=== PATIENT | male | born 1945 | race Caucasian/White ===

== ENCOUNTER 2021-01-26 14:31 | Emergency (ER) | payer OTHER, SELFPAY ==
[2021-01-26] VITALS (29 sets, daily range): BP systolic 89–164; BP diastolic 45–110; PULSE 71–100; RESP 15–31; TEMP 36.2–36.6; O2SAT 89–100
--- NOTE | ~2021-01-26 | XR_ITS ---
EXAMINATION: XR chest 1V portable DATE: 01/26/2021 15:33 INDICATION: Shortness of breath and left upper chest pain TECHNIQUE: frontal view of the chest was obtained. COMPARISON: Chest radiograph dated 12/17/2005 FINDINGS: Mild linear discoid atelectasis in the left lower lung zone. No other airspace opacities, pulmonary e tanvi, pleural effusion or pneumothorax. The cardiomediastinal silhouette is normal. Mild thoracic lev ocurvature. IMPRESSION: 1. Mild linear discoid atelectasis in the left lower lung zone. No acute cardiopulmonary disease Reviewed, dictated and finalized at location A. IMPRESSION: 1. Mild linear discoid atelectasis in the left lower lung zone. No acute cardio pulmonary disease
--- NOTE | 2021-01-26 15:03 | ECG_ITS ---
Measurements Intervals [place] Rate: 91 P: 84 MD: 177 QRS: 64 QRSD: 100 T: 71 QT: 348 QTc: 429 Interpretive Statements SINUS RHYTHM FREQUENT ATRIAL AND VENTRICULAR PREMATURE COMPLEXES DELAYED PRECORDIAL R/S TRANSITION INFERIOR INFARCT, AGE INDETERMINATE BORDERLINE ST-T WAVE ABNORMALITY- LAT/HIGH LAT LEADS BASELINE ARTIFACT- I, II, III, AVR, AVL, AVF, V2 ABNORMAL ECG Electronically Signed On 01-26-2021 15:27:37 CDT by Jules Callejas D.O.
[2021-01-26] MEDS: ONDANSETRON INJ 4 MG/2 ML VIAL IV PUSH (15:18)
[2021-01-26] MEDS: MORPHINE SULFATE (*CRX) 2 MG/ML INJ IV PUSH (15:18)
[2021-01-26 15:30] LABS: Basophils Absolute Auto 0.06 K/mm3 (0.00-0.10); Basophils Percent Auto 0.9 % (0.0-1.0); Eosinophils Absolute Auto 0.12 K/mm3 (0.02-0.50); Eosinophils Percent Auto 1.7 % (1.0-6.0); Hematocrit 44.9 % (37.0-46.0); Hemoglobin 15.4 g/dL (12.4-15.3); Immature Granulocyte Absolute 0.03 K/mm3 (0.00-0.00); Immature Granulocyte Percent A 0.4 % (0.0-0.0); Lymphocytes Absolute Auto 1.62 K/mm3 (1.10-4.50); Lymphocytes Percent Auto 23.3 % (18.0-42.0); Mean Corpuscular HGB Conc 34.3 g/dL (32.0-36.0); Mean Corpuscular Hemoglobin 29.3 pg (27.0-31.0); Mean Corpuscular Volume 85.5 fL (78.0-102.0); Mean Platelet Volume 9.3 fl (8.7-11.0); Monocytes Absolute Auto 0.64 K/mm3 (0.10-0.90); Monocytes Percent Auto 9.2 % (2.0-11.0); Neutrophils Absolute Auto 4.5 K/mm3 (1.7-7.2); Neutrophils Percent Auto 64.5 % (50.0-70.0); Platelet Count Result 203 K/mm3 (150-420); Red Blood Count 5.25 M/mm3 (4.70-6.10); Red Cell Distribution Width 14.7 % (11.6-14.4); White Blood Count 6.9 K/mm3 (4.8-10.8)
[2021-01-26 15:46] LABS: Alanine Aminotransferase 35 U/L (16-63); Albumin Level 3.6 g/dL (3.4-5.0); Alkaline Phosphatase 52 U/L (46-116); Anion Gap 13 mmol/L (8-16); Aspartate Amino Transferase 24 U/L (15-37); Bilirubin,Total 1.4 mg/dL (0.00-1.00); Blood Urea Nitrogen 10 mg/dL (7-18); Calcium 9.1 mg/dL (8.5-10.1); Carbon Dioxide 23 mmol/L (21-32); Chloride 102 mmol/L (98-108); Estimated CRCL calculation 64 ml/min; Estimated Glomerular Filt Rate > 60; Glucose 235 mg/dL (70-99); Osmolality Calculated 293 mOsm/kg (285-295); Potassium 3.9 mmol/L (3.5-5.1); Sodium 138 mmol/L (136-145); Total Protein 7.4 g/dL (6.4-8.2); Troponin I 9.4 ng/L (0.00-60.4)
[2021-01-26 15:48] LABS: Lactic Acid Reflex 3.1 mmol/L (0.4-2.0)
--- NOTE | 2021-01-26 16:38 | PC.NURSE ---
ERP Dr Snow consulted c Dr Christy, order received to transfer to [facility], call placed to [facility] and will await call back for bed placement and to see if beds available.
[2021-01-26] MEDS: SODIUM CHLORIDE 0.9% IV 500 ML 999 ML IV CONT (16:49)
[2021-01-26] MEDS: methylPREDNISolone SOD SUCC 125 MG VIAL IV PUSH (16:49)
[2021-01-26] MEDS: ALBUTEROL SULFATE (*SP) INHALER 2 PUFF INHALATION (16:51)
--- NOTE | 2021-01-26 16:56 | ED.CHESTPAIN ---
HPI - Chest Pain General Chief Complaint: Chest Pain Stated Complaint: Chest & Jaw Pain Time Seen by Provider: 01/26/21 14:33 Source: patient and RN notes reviewed Mode of arrival: ambulatory Limitations: no limitations History of Present Illness MD complaint: chest pain Pertinent past history: coronary artery disease, prior ME and [employer]PB[employer] Onset (ago): day(s) Timing of current episode: constant Prior episodes: Yes Onset: during rest Pain location: left chest Pain radiation: jaw/teeth Severity: moderate Pain scale (0-10): 7 Quality: aching, heaviness, dull and similar to prior ME Relieving factors: nitroglycerin and medication-other Exacerbating factors: nothing Associated symptoms: nausea and dyspnea Treatment prior to arrival: aspirin Risk Factors Coronary artery disease risk factors: diabetes, smoking history, hyperlipidemia and hypertension Thoracic aortic dissection risk factors: none Related Data Home Medications Medication Instructions Recorded Confirmed albuterol sulfate [ProAir HFA] 1 inh INHALATION QID PRN 01/26/21 01/26/21 aspirin 81 mg PO DAILY 01/26/21 01/26/21 budesonide-formoterol [Symbicort] 2 puff INHALATION Q12H 01/26/21 01/26/21 carvedilol 12.5 mg PO BID 01/26/21 01/26/21 clopidogrel 75 mg PO DAILY 01/26/21 01/26/21 fenofibrate nanocrystallized 145 mg PO DAILY 01/26/21 01/26/21 furosemide 40 mg PO DAILY 01/26/21 01/26/21 ipratropium-albuterol [DuoNeb] 3 ml INHALATION Q6H PRN 01/26/21 01/26/21 losartan 25 mg PO DAILY 01/26/21 01/26/21 metformin 500 mg PO BID 01/26/21 01/26/21 potassium chloride 20 meq PO DAILY 01/26/21 01/26/21 ranitidine HCl 300 mg PO HS 01/26/21 01/26/21 simvastatin 40 mg PO HS 01/26/21 01/26/21 tiotropium bromide [Spiriva with 1 cap INHALATION DAILY 01/26/21 01/26/21 HandiHaler] Allergies Allergy/AdvReac Type Severity Reaction Status Date / Time No Known Allergies Allergy Verified 01/26/21 14:58 Review of Systems Review of Systems: All systems reviewed & are unremarkable except as noted in HPI and below Constitutional: Constitutional: Reports as per HPI and Reports no additional constitutional complaints Eyes: Eyes: Reports as per HPI and Reports no additional eye complaints ENT: Reports system reviewed and no additional complaints, except as documented and Reports as per HPI Cardiovascular: Cardiovascular: Reports as per HPI, Reports no additional cardiovascular complaints, Reports chest pain, Reports chest pain at rest and Reports chest pain with activity Respiratory: Respiratory: Reports as per HPI, Reports no additional respiratory complaints, Reports dyspnea and Reports wheezing Gastrointestinal: Gastrointestinal: Reports as per HPI and Reports no additional gastrointestinal complaints Genitourinary: Genitourinary: Reports no additional male genitourinary complaints and Reports as per HPI Musculoskeletal: Musculoskeletal: Reports no additional musculoskeletal complaints and Reports as per HPI Integumentary/Breasts: Skin/Breast: Reports system reviewed and no additional complaints, except as docu and Reports as per HPI Neurologic: Reports system reviewed and no additional complaints, except as documented and Reports as per HPI Psychiatric: Psychiatric: Reports no additional psychiatric complaints and Reports as per HPI Endocrine: Endocrine: Reports no additional endocrine complaints and Reports as per HPI Hematologic/Lymphatic: Hematologic/Lymphatic: Reports no additional hematologic/lymphatic complaints and Reports as per HPI Allergic/Immunologic: Allergic/Immunologic: Reports no additional allergic/immunologic complaints and Reports as per HPI PMFSH Past Medical History Medical History (Updated 01/26/21 @ 19:18 by Amna Snow MD) Coronary artery disease Diabetes Hypertension Exam Const: General: cooperative, no acute distress, well developed, alert and awake Nutritional Appearance: well nourished Orientation/consciousness: oriented to person, or
--- NOTE | 2021-01-26 17:00 | PC.NURSE ---
Call back from [facility], no beds available for transfer. Pt placed on wait list. Pt informed and pt requests to try [facility] for transfer, call placed to [place] and spoke to Jackie deleon, will await call back from hospitalist.
[2021-01-26 17:31] LABS: SARS-CoV-2 Ag Negative (Negative)
--- NOTE | 2021-01-26 18:02 | PC.NURSE ---
Pt stands per self and uses urinal and then back to bed s difficulty. Pt remains pain free and has no c/o. VSS, monitor SR.
[2021-01-26 18:28] LABS: Reflex Lactic Acid Yes or No Add Lactic
[2021-01-26 19:17] LABS: Lactic Acid 1.3 mmol/L (0.4-2.0)
--- NOTE | 2021-01-26 20:25 | PC.NURSE ---
Pt watching TV c at bedside, awaiting Griffin to call back c bed assignment and for report. VSS.
--- NOTE | 2021-01-26 21:39 | PC.NURSE ---
Call back from polina Moya to go to [phone] [phone]. Report called and paperwork signed.
== END 2021-01-26 22:10 | disposition short-term general hospital (02) ==
PROVIDERS: Emergency Provider Emergency Medicine
DX: I20.0 Unstable angina (principal); E11.9 Type 2 diabetes mellitus without complications; I10 Essential (primary) hypertension; Z20.822 Contact with and (suspected) exposure to COVID-19
CPT/HCPCS: 36415; 71045; 80053; 83605; 84484; 85025; 87426; 93005; 94640; 96361; 96374; 96375; 99285; A9270; C9803; J2270; J2405; J2930; J7040

== ENCOUNTER 2021-01-27 09:45 | Observation (INO) | payer OTHER, SELFPAY ==
[2021-01-26 23:20] VITALS: BP 139/90; PULSE 84; RESP 20; TEMP 36.8; O2SAT 95
[2021-01-26 23:24] VITALS: PULSE 83
[2021-01-27 00:05] VITALS: BMI 31.4
--- NOTE | 2021-01-27 00:10 | PM.IMHP ---
H&P: HPI History of Present Illness Date/Time: 01/27/21 00:10 Chief Complaint: chest pain and shortness of breath Narrative: this is 75-year-old male who presents to the ER with chest pain in the left precordial area since past couple of days associated with jaw pain and also shortness of breath. 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 He has noticed increased pain mostly constant in the left precordial area along with shortness of breath and jaw pain. He was putting it off for past few days however wanted to come for evaluation since it got persistent. There is associated nausea but no vomiting with this he had not tried nitroglycerin at home for the chest pain. he has a history of coronary artery disease and had Several stents in the past. He also has history of congestive heart failure and COPD from his history of smoking in the past. He has EKG had nonspecific ST-T changes and troponins were negative in the outlying hospital his initial lactic acid was elevated but the repeat 1 was negative. He is transferred to [facility] for cardiac evaluation. his primary directory clerk is Dr. Christy in [facility] however they did not have bed for him to get transferred there. Review of Systems Review of Systems: - CONSTITUTIONAL: Denies weight loss, fever and chills. - HEENT: Denies changes in vision and hearing - RESPIRATORY: Reports SOB and denies cough. - CV: Denies palpitations and reportsCP. - GI: Denies abdominal pain, reports nausea, denies vomiting and diarrhea. - : Denies dysuria and urinary frequency. - MSK: Denies myalgia and joint pain. - SKIN: Denies rash and pruritus. - NEUROLOGICAL: Denies headache and syncope. - PSYCHIATRIC: Denies recent changes in mood. Denies anxiety and depression. All systems reviewed & are unremarkable except as noted in HPI and below Constitutional: Constitutional: Reports fatigue and Reports weakness Neurologic: Reports weakness Endocrine: Endocrine: Reports fatigue [facility] Past Medical History Medical History (Updated 01/27/21 @ 01:58 by Alfonzo Lala MD) Coronary artery disease Diabetes Hypertension Family History Family History (Updated 01/27/21 @ 00:01 by Sita Rowe RN) Mother Acute myocardial infarction Father Cerebrovascular accident Sibling Asthma Chronic obstructive pulmonary disease Colon cancer Congestive heart failure Acute myocardial infarction Diabetes mellitus Hypertension Prostate carcinoma Social History Social History Smoking packs per day: 1 Smoking cigarettes per day: 20.0 Years smoked: 55 Smoking pack-years: 55.00 Smoking status: Former smoker Tobacco type: cigarettes Alcohol intake: former Substance use: never Spiritual care concerns: No Meds Home Medications and Allergies Home Medications Medication Instructions Recorded Confirmed Type albuterol sulfate [ProAir HFA] 1 inh INHALATION QID PRN 01/26/21 01/26/21 History aspirin 81 mg PO DAILY 01/26/21 01/26/21 History budesonide-formoterol [Symbicort] 2 puff INHALATION Q12H 01/26/21 01/26/21 History famotidine 40 mg PO HS 01/26/21 01/26/21 History ferrous sulfate 325 mg PO DAILY 01/26/21 01/26/21 History folic acid 1 mg PO DAILY 01/26/21 01/26/21 History furosemide 40 mg PO DAILY 01/26/21 01/26/21 History ipratropium-albuterol [DuoNeb] 3 ml INHALATION Q6H PRN 01/26/21 01/26/21 History metformin 500 mg PO BID 01/26/21 01/26/21 History metoprolol succinate 100 mg PO DAILY 01/26/21 01/26/21 History omeprazole 40 mg PO DAILY 01/26/21 01/26/21 History sacubitril-valsartan 1 tablet PO BID 01/26/21 01/26/21 History simvastatin 40 mg PO HS 01/26/21 01/26/21 History spironolactone 25 mg PO DAILY 01/26/21 01/26/21 History tiotropium bromide [Spiriva with 1 cap INHALATION DAILY 01/26/21 01/26/21 History HandiHaler] Allergies Allergy/AdvReac Type Severity React
[2021-01-27 01:10] LABS: Troponin I < 0.012 ng/mL (0.000-0.034)
[2021-01-27 02:00] VITALS: PULSE 87
[2021-01-27 04:00] VITALS: BP 120/85; PULSE 90; RESP 19; TEMP 36.7; O2SAT 100
[2021-01-27 05:55] LABS: D Dimer 0.28 ug/mL (<0.48)
[2021-01-27 08:00] VITALS: PULSE 99
[2021-01-27 09:15] LABS: Glucose Point of Care 208 mg/dl (65-105)
[2021-01-27 09:29] VITALS: BP 131/71; PULSE 98; RESP 21; TEMP 36.4; O2SAT 95
[2021-01-27] MEDS: ASPIRIN 81 MG CHEWABLE TABLET PO (10:53)
[2021-01-27 10:54] VITALS: PULSE 98
[2021-01-27] MEDS: FERROUS SULFATE 324 MG TABLET PO (10:54)
[2021-01-27] MEDS: FOLIC ACID 1 MG TABLET PO (10:54)
[2021-01-27] MEDS: SACUBITRIL/VALSARTAN 24-26 MG TABLET 1 TAB PO (10:54)
[2021-01-27] MEDS: PANTOPRAZOLE 40 MG TABLET PO (10:54)
[2021-01-27] MEDS: METOPROLOL SUCCINATE EXT REL 100 MG TABCR PO (10:54)
--- NOTE | 2021-01-27 17:18 | PM.DS ---
DS: Admitting Diagnosis Admitting Diagnosis Chest pain with jaw claudication left side DS: Discharge Diagnosis Discharge Diagnosis (1) Unstable angina: Code(s): I20.0 - Unstable angina Status: Acute Assessment and Plan: chest pain resolved after morphine in the ED. EKG was normal sinus rhythm with PACs and PVCs, borderline ST-T wave abnormality. Age-indeterminate inferior infarct. Troponins negative. Patient's symptoms of chest pain and jaw claudication completely resolved and he will have outpatient stress test. He would like to follow-up with his lbd teacher Dr. Christy in [place]. History of heart stent placed 14 years ago. Patient is on already the appropriate medications for ACS, he will be discharged home to follow-up with his primary lbd teacher. (2) Diabetes: Code(s): E11.9 - Type 2 diabetes mellitus without complications Status: Acute Assessment and Plan: Continue home medication (3) Hyperlipidemia: Code(s): E78.5 - Hyperlipidemia, unspecified Status: Acute Assessment and Plan: Continue statin (4) Hypertension: Code(s): I10 - Essential (primary) hypertension Status: Acute Assessment and Plan: Continue home medications (5) Congestive heart failure: Code(s): I50.9 - Heart failure, unspecified Status: Acute Assessment and Plan: Chronic systolic heart failure, continuing home medications including Entresto DS: Summary Hospital Course Reason for hospitalization: Chest pain with jaw claudication Hospital Course: Patient is a 75-year-old male past medical history of systolic congestive heart failure, CAD status post stent 14 years ago, diabetes, hypertension presents to ED with complaints of chest pain with jaw claudication. 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 Symptoms worsened prompting him to come to the ED for evaluation. He has a history of coronary disease with stent placed 14 years ago. He has a history of congestive heart failure in takes the appropriate medications including Entresto. He has a history of smoking and history of COPD but not on any home oxygen. He lives equal distance from [place] and [place] and gets his medical care at the OR in [place]. He follows lbd teacher Dr. Christy in [place]. Patient's EKG had nonspecific T-wave changes, no ST elevation. Troponins were negative. Patient became asymptomatic during his hospitalization as his symptoms resolved after a dose of morphine in the ED. by the next day his symptoms stayed abated. To do a stress test over the weekend and he was advised to have a stress test as soon as possible. He would like to follow-up with his primary lbd teacher Dr. Christy. Patient will be discharged home on his home medications as he is on the appropriate medications for ACS and he will follow-up with his lbd teacher. Patient's labs stable, vitals stable, patient is stable for discharge. Patient understands and agrees with plan. Status at Discharge Cognitive/behavioral status at discharge: At baseline Functional status at discharge: independent ambulation Overall status at discharge: patient is back to baseline Time Spent with Patient Time attestation: Total time spent providing and/or coordinating discharge services:35 Time spent: Greater than 30 minutes Exam Narrative: - GENERAL: Pleasant elderly gentleman in no acute distress. Well-nourished. - EYES: EOMI. Anicteric. - HENT: Moist mucous membranes. - LUNGS: Clear to auscultation bilaterally, no wheezing, rhonchi, or rales. - CARDIOVASCULAR: Regular rate and rhythm. No murmur. No JVD. - ABDOMEN: Soft, non-tender and non-distended. No palpable masses. - EXTREMITIES: No edema. Peripheral pulses 2+. Non-tender. - NEUROLOGIC: No focal neurological deficits
== END 2021-01-27 11:20 | disposition home or self-care (01) ==
PROVIDERS: Internal Medicine; Admitting Provider Internal Medicine; PCP Emergency Medicine; Visit Provider Student in an Organized Health Care Education/Training Program
DX: I25.110 Atherosclerotic heart disease of native coronary artery with unstable angina pectoris (principal); R11.0 Nausea; J44.9 Chronic obstructive pulmonary disease, unspecified; I11.0 Hypertensive heart disease with heart failure; I50.22 Chronic systolic (congestive) heart failure; E11.9 Type 2 diabetes mellitus without complications; Z87.891 Personal history of nicotine dependence; Z79.51 Long term (current) use of inhaled steroids; Z79.82 Long term (current) use of aspirin; Z79.84 Long term (current) use of oral hypoglycemic drugs; Z95.5 Presence of coronary angioplasty implant and graft
CPT/HCPCS: 36415; 82948; 84484; 85380; 99199; A9270; J1650

== ENCOUNTER 2024-10-30 08:42 | Emergency (ER) | payer MEDICARE, SELFPAY ==
--- NOTE | ~2024-10-30 | XR_ITS ---
EXAMINATION: XR shoulder LT min 2V DATE: 10/30/2024 09:21 INDICATION: Left shoulder pain post fall TECHNIQUE: AP, AP oblique externally rotated and transscapular Y views of the left shoulder were obta ined. COMPARISON: None FINDINGS: Normal alignment. No fracture.Minimal glenohumeral and acromioclavicular osteoarthritis. Acromioclav icular joint is normal. Soft tissues are unremarkable. 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 Reviewed, dictated and finalized at location A.
[2024-10-30 08:42] VITALS: BP 125/79; PULSE 68; RESP 18; TEMP 36.1; O2SAT 97
--- OUTSIDE RECORDS SUMMARY | 2024-10-30 08:54 | XMS_ITS | CONTINUITY OF CARE DOCUMENT ---
Author Name eric reyes Address Unknown Organization [facility] Address [address] [address] [place] [address] Phone [phone] Care Team Providers Care Stage Hand Name Role Phone Monty Gaona MD Unavailable Karolina Berry Unavailable [phone] PROBLEMS Condition Status Date Provider Notes COPD active Monty Gaona MD SHORTNESS OF BREATH active Monty Sheikh HTN ESSENTIAL active Monty Gaona MD DYSLIPIDEMIA active Monty Gaona MD FATIGUE active Monty Gaona MD DIABETES MELLITUS active Monty Gaona MD TOBACCO USE, QUIT active Monty Gaona MD CAD - PREVIOUS AR AND STENTS ; DETAILS UNKNOWN >15 YEARS AGO active Monty Gaona MD ENCOUNTERS Date Type Provider Location Encounter Diag nosis - In-person encounter Office Visit Monty Gaona MD [facility] COPDSHORTNESS OF BREATHHTN ESSENTIALDYSLIPIDEMIAFATIGUEDIABETES MELLITUSTOBACCO USE, QUITCAD - PREVIOUS AR AND STENTS; DETAILS UNKNOWN >15 YEARS AGO VITAL SIGNS Date Observation Value Provider respiratory rate E&M 18 /min Tracey Gaona MD oxygen saturation, oximetry 94 % Monty Gaona MD pulse rate 78 /min Monty Gaona MD weight E&M 227 [lb_av] Monty Gaona MD height E&M 69 [in_i] Monty Gaona MD HISTORY OF MEDICATION USE Medication Status Instructions Dates Provider Indications Com ments ZOCOR 40 MG ORAL TABLET active ONE TAB. AT BEDTIME Monty Gaona MD ATROVENT HFA AEROSOL SOLUTION active as directed Monty Gaona MD ACCUNEB NEBU active 2 puffs prn Monty Gaona MD ADVAIR DISKUS 500-50 MCG/DOSE INHALATION AEROSOL POWDER BREATH ACTIVATED active 1 puff twice daily Monty Gaona MD SYMBICORT 160-4.5 MCG/ACT INHALATION AEROSOL active 1 puff twice daily Monty Gaona MD METFORMIN HCL 500 MG ORAL TABLET active twice daily Monty Gaona MD VISTARIL 25 MG ORAL CAPSULE active one tablet daily Monty Gaona MD METOPROLOL TARTRATE 100 MG ORAL TABLET active one tab. twice daily Monty Gaona MD RANITIDINE HCL 150 MG ORAL TABLET active ONE TAB TWICE DAILY Monty Gaona MD FENOFIBRATE 145 MG ORAL TABLET active one tablet daily Monty Gaona MD LISINOPRIL-HYDROC HLOROTHIAZIDE 10-12.5 MG ORAL TABLET active one tablet daily Monty Gaona MD SOCIAL HISTORY Date Observation Value Provider smoking status former smoker Monty gerard MD physical exercise, f requency, days per week no Monty Gaona MD social history E&M E thnicity: Monty Gaona MD social history reviewed E&M reviewed Monty Gaona MD MENTAL STATUS Date Observation Value Provider assessment of judgme nt and insight E&M Alert and oriented to time, place and person. Mood and affect are normal. Monty Gaona MD INSURANCE PROVIDERS Payer name Policy type / Coverage type [facility] ID CARE IMPROVEMENT PLUS Commercial insurance [place] [id number] TREATMENT PLAN Date Name Performer : H is updated medication list for this problem includes: Lisinopril-hydrochlorothiazide 10-12.5 Mg Tabs (Lisinopril-hydrochlorothiazide) ..... One tablet daily Metoprolol Tartrate 100 Mg Tabs (Metoprolol tartrate) ..... One tab. twice daily Orders: S TR - Adenosine (72957) C omplete Echo (CPT-44312) Monty Gaona MD : H is updated medication list for this problem includes: Fenofibrate 145 Mg Tabs (Fenofibrate) ..... One tablet daily Zocor 40 Mg Tabs (Simvastatin) ..... One tab. at bedtime Orders: S TR - Adenosine ([id number]) C omplete Echo ([id number]) Monty Gaona MD : O rders: S TR - Adenosine ([id number]) C omplete Echo (CPT-[id number]) Monty Gaona MD : H is updated medication list for this problem includes: Lisinopril-hydrochlorothiazide 10-12.5 Mg Tabs (Lisinopril-hydrochlorothiazide) ..... One tablet daily Metoprolol Tartrate 100 Mg Tabs (Metoprolol tartrate) ..... One tab. twice daily Orders: S TR - Adenosine ([id number]) C omplete Echo ([id number]) oMnty Gaona MD : H is updated medication list for this problem includes: Symbicort 160-4.5 Mcg/act Aero (Budesonide-formoterol fumarate) ..... 1 puff twice daily Advair Diskus 500-50 Mcg/dose Aepb (Fluticasone-salmeterol) ..... 1 puff twice daily Accuneb Nebu (Albuterol sulfate nebu) ..... 2 puffs prn Atrovent Hfa Aers (Ipratropium bromide hfa aers) ..... As directed Orders: S TR - Adenosine ([id number]) C omplete Echo (CPT-[id number]) Monty Gaona MD Date Name Complete Echo STR - Adenosine
--- OUTSIDE RECORDS SUMMARY | 2024-10-30 08:54 | XMS_ITS | Encounter Summary ---
Author Organization [facility] Address [facility] [place] [address] Care Team Providers Care Title Abstractor Name Role Phone Tita Mccain APRN, NP-C Unavailable Dorian Christy MD Unavailable [phone] Dangelo Adames MD Primary Care Provider [phone] Yanick Jackson MD Unavailable [phone] Gokul Mayorga MD Unavailable [phone] Chante Lucas MD Unavailable [phone] Teri Jerome PA-C Unavailable [phone] Encounter Details Date Type Department Care Team (Late st Contact Info) Description 12/06/2021 Pre-Procedure Call [employer] Pre/Post [address] [place] [address] Gokul Mayorga MD [address] [place] [address] Social History Tobacco Use Types Packs/Day Years Used Date Smoking Tobacco: Former Cigarettes 1 50 1 954 - 2004 Smokeless Tobacco: Never Alcohol Use Standard Drinks/Week Comments No 0 (1 standard drink = 0.6 oz pur e alcohol) Sex and Gender Information Value Date Recorded Sex Assigned at Male 08/09/2024 3:31 PM WIRELESS MANAGER Legal Sex Male 11:57 PM CDT Gender Identity Male 06/14/2019 10:46 AM WIRELESS MANAGER Sexual Orientation Not on file Occupation Industry Job Start Date Job End Date Not on file Not on file Not on file Not on file COVID-19 Exposure Response Date Recorded In the last 10 days, have sandra larkin been in contact with someone who was confirmed or suspected to have Coronavirus/COVID-19? No / Unsure 12/07/2021 7:40 AM CDT documented as of this encounter Functional Status * RETIRED Are you deaf or do you have serious difficulty hearing Answer Date of Assessment Author Status No 06/14/2019 11:02 AM WIRELESS MANAGER Acti ve * RETIRED Are you blind or do you have serious difficulty seeing, even when wearing glasses? Answer Date of Assessment Author Status No 06/14/2019 11:02 AM WIRELESS MANAGER Acti ve * Do you have serious difficulty walking or climbing stairs? Answer Date of Assessment Author Status Yes 06/14/2019 11:02 AM Julianna Pemberton RN Active * Do you have difficulty dressing or bathing? Answer Date of Assessment Author Status No 06/14/2019 11:02 AM Julianna Pemberton RN Active * Because of a physical, mental, or emotional condition, do you have difficulty doing errands alone such as visiting a doctor's office or shopping? Answer Date of Assessment Author Status No 06/14/2019 11:02 AM Julianna Pemberton RN Active documented as of this encounter Mental Status * Because of a physical, mental, or emotional condition, do you have serious difficulty concentrating, remembering, or making decisions? Answer Entry Date Author Status No 06/14/2019 11:02 AM Julianna Pemberton RN Active documented in this encounter Plan of Treatment Not on file documented as of this encounter Visit Diagnoses Not on filedocumented in this encounter Additional Health Concerns Infection Onset Date Last Indicated Resolved Time COVID-19 Rule Out 08/09/2024 08/09/2024 08/09/2024 4:36 PM WIRELESS MANAGER documented as of this encounter Care Teams Title Abstractor Relationship Specialty Start Date End Date Dangelo Adames MD [address] [address] PCP - General INTERNAL MEDICINE 10/24/17 Tita Mccain APRN, RN ICU-C [address] [place] [address] [address] [place] [phone] NURSE PRACTITIONER 05/30/17 01/26/24 Dorian Christy MD [address] [place] [phone] CARDIOVASCULAR DISEASE 06/30/17 4 Yanick Jackson MD [address] [place] [id number] PULMONARY DISEASE 10/28/17 Gokul Mayorga MD [address] [place] [id number] EP Sports Equipment Repairer CLINICAL CARDIAC ELECTROPHYSIOLOGY 08/27/21 Chante Lucas MD [address] [place] [address] [id number] INTERVENTIONAL CARDIOLOGY 11/20/2310/18 Teri Jerome PA-C [address] [place] [id number] Referring Physician PHYSICIAN VISUAL EDUCATOR 10/17/24 documented as of this encounter
--- OUTSIDE RECORDS SUMMARY | 2024-10-30 08:54 | XMS_ITS | Encounter Summary ---
Author Name [facility] Address [address] [place] [address] Care Team Providers Care Councillor [employer] Name Role Phone EKATERINARONAN ALEJANDRO Primary Care Provider Unavailabl e CHAVEZ GALICIA Primary Care Provider Unavailabl e Insurance Providers: All historical and current Section Date Range: From patient's date of to the date document was created. This section includes the names of all active insurance providers for the patient. Insurance Provider Type of Coverage Plan Name Start of Policy Coverage End of Policy Coverage Group Number Member ID Insurance Provider's Telephone Number Policy Biggs's Name Patient's Relationship to Policy Biggs MEDICARE (WNR) MEDICARE (M) PART B Dec 14, 2008 PART B [id number] MIS ZARATE HN PATIENT MEDICARE (WNR) MEDICARE (M) PART B Dec 14, 2008 PART B [id number] [phone] MIS [place]ARATE HN PATIENT MEDICARE (WNR) MEDICARE (M) PART B Dec 14, 2008 PART B [id number] MIS [place] HN PATIENT MEDICARE (WNR) MEDICARE (M) PART B Dec 14, 2008 PART B [id number] [phone] MIS [place] HN PATIENT MEDICARE (WNR) MEDICARE (M) PART A Sep 14, 2006 PART A [id number] [phone] MIS [place]AR[place] HN PATIENT MEDICARE (WNR) MEDICARE (M) PART A Sep 14, 2006 PART A [id number] MIS [place]ARATE HN PATIENT MEDICARE (WNR) MEDICARE (M) PART A Sep 14, 2006 PART A [id number] MIS [place] HN PATIENT MEDICARE (WNR) MEDICARE (M) PART A Sep 14, 2006 PART A [id number] [phone] MIS ZARATE HN PATIENT MEDICARE PART D (WNR) PRESCRIPT ION PART D Jun 16, 2014 PART D [id number] [phone] MIS ZARATE PATIENT Selected Encounter This section includes the information on record at OR for the Encounter. Date/Time Encounter Type Encounter Description Reason Provider Source Jan 28, 2024 10:10 AM QNHP OL DIG ASSMT&MGMT 21+ CLINICAL PHARMACY ICD-10-CM J44.9 Chronic obstructive pulmonary disease, unspecified Marivel SEGURA Dustin Encounter Template Text not used by OR Assessments - Encounter Diagnoses This section includes the primary and secondary diagnoses documented for the Encounter. Date/Time Primary/Secondary Diagnosis Diagnosis Name Provider Source Jan 28, 2024 10:39 AM PRIMARY Chronic obstructive pulmonary disease, unspecified [facility] Plan of Treatment: Future Appointments (+ 6 months) and Future Tests (+/- 45 days) The Plan of Treatment section includes future care activities for the patient from all OR treatmentfacilities. This section includes future appointments and future orders which are active, pending or scheduled. Future Appointments This section includes appointments that were scheduled to occur 6 months from the date of the Encounter, up to a maximum of 20 appointments. The data comes from all OR treatment facilities. Appointment Date/Time Appointment Type Appointme nt Facility Name Feb 19, 2024 02:00 PM AMBULATORY - SURGERY [facility] Jun 02, 2024 02:00 PM AMBULATORY - NONE [facility] Jun 14, 2024 03:00 PM AMBULATORY - NONE [facility] Jun 21, 2024 03:00 PM AMBULATORY - MEDICINE [facility] Jun 28, 2024 03:00 PM AMBULATORY - MEDICINE [facility] Jul 21, 2024 11:00 AM AMBULATORY - NONE [facility] Advance Directives: All historical and current Section Date Range: From patient's date of to the date document was created. This section includes ALL of a patient's completed or amended OR Advance and Rescinded Directives. The entries below indicate that a directive exists for the patient, but an actual copy is not included with this document. The data comes from all OR facilities. Date Advance Directives Provider Source Jul 13, 2021 ADVANCE DIRECTIVE DISCUSSION KATHIA SEO [facility] Sep 25, 2005 ADVANCE DIRECTIVE MIKEY OSORIO [facility] Encounter Notes: All associated encounter notes This section contains the clinical notes associated to the Encounter. Date/Time Encounter Note(s) Provider Source Jan 28, 2024 10:11 AM PHARMACY CONSULT: LOCAL TITLE: CONSULT/PHARMACY STANDARD TITLE: PHARMACY CONSULT DATE OF NOTE: JAN 28, 2024@10:11 ENTRY DATE: JAN 28, 2024@10:12:20 AUTHOR: JADE SEGURA EXP COSIGNER: URGENCY: STATUS: COMPLETED Pharmacy Non-Formulary Request: Daliresp-Approved The medical record has been reviewed with regard to this prior authorization drug request. This prior authorization drug request originated with a [facility] provider. Medication requested: ROFLUMILAST 250MCG TAB Medication indication: COPD Medical history relevant to this request: ADR: Patient has answered NKA Active Outpatient Prescriptions: Active Outpatient Medications (including Supplies): Active Outpatient Medications Status 1) ALBUTEROL 90MCG (CFC-F) 200D ORAL INHL INHALE 2 PUFFS ACTIVE BY MOUTH FOUR TIMES A DAY NEEDED FOR BREATHING 2) FLUTICAS 100/SALMETEROL 50 INHL DISK 60 INHALE 1 PUFF ACTIVE BY MOUTH TWICE A DAY FOR ASTHMA/COPD. RINSE MOUTH AFTER USE. RINSE MOUTH AFER EACH USE. 3) FUROSEMIDE 40MG TAB TAKE ONE TABLET BY MOUTH DAILY ACTIVE FOR BLOOD PRESSURE/WATER PILL 4) GABAPENTIN 600MG TAB TAKE ONE TABLET BY MOUTH TWICE A ACTIVE DAY 5) METFORMIN HCL 1000MG TAB TAKE ONE TABLET BY MOUTH TWO ACTIVE TIMES A DAY BEFORE MORNING AND EVENING MEAL WITH FOOD - FOR DIABETES 6) METOPROLOL SUCCINATE 25MG SA TAB TAKE ONE-HALF TABLET ACTIVE BY MOUTH EVERY MORNING FOR BLOOD PRESSURE 7) OMEPRAZOLE 20MG EC CAP TAKE TWO CAPSULES BY MOUTH ACTIVE EVERY MORNING 30 MINUTES BEFORE BREAKFAST FOR STOMACH ACID 8) SACUBITRIL 49MG/VALSARTAN 51MG TAB TAKE 1 TABLET BY ACTIVE MOUTH TWICE A DAY FOR HEART FAILURE. 9) SIMVASTATIN 40MG TAB TAKE ONE TABLET BY MOUTH AT ACTIVE BEDTIME AVOID GRAPEFRUIT CALL YOUR PROVIDER IF YOU HAVE MUSCLE PAIN, TENDERNESS OR WEAKNESS - FOR CHOLESTEROL 10) SOTALOL HCL 120MG TAB TAKE ONE TABLET BY MOUTH TWICE ACTIVE A DAY 11) SPIRONOLACTONE 25MG TAB TAKE ONE-HALF TABLET BY MOUTH ACTIVE DAILY FOR BLOOD PRESSURE/WATER PILL 12) TIOTROPIUM 2.5MCG/ACTUAT 60D ORAL INHL INHALE TWO ACTIVE INHALATIONS BY MOUTH EVERY DAY MAX OF TWO INHALATIONS IN 24 HOURS. Active Non-VA Medications Status 1) Non-VA [id number] ETHYL ESTERS 1000MG CAP 1000MG ACTIVE MOUTH DAILY 13 Total Medications 78 y/o with [facility] Pulmonary approval. Patient has a PMH of COPD, HTN, HLD, T2DM, CHF, A. fib, anemia, MARY, CAD, and GERD. 78 y/o referred to [facility] Pulmonary for COPD and worsening SOB. Patient is on Wixela and Spiriva. His latest FEV1 is 44% as provided from [facility] results from January 2024. Patient reports daily respiratory problems with a chronic daily cough. He brings up yellowish mucus. He has SOB with exertion. He was started on an antibiotic due to this with an unscheduled HCP visit. He is using his nebulizer every 4 hours while awake. Spirometry shows severe COPD. Provider wants to start patient on Daliresp as he feels this is the next best option for patient. Provider is requesting Daliresp which is non-formulary at the OR. Roflumilast (Daliresp) Criteria for Use Exclusion Criteria [-] Asthma without Chronic Obstructive Pulmonary Disease (COPD) [-] Moderate-severe hepatic impairment (Child-Leigh B or C) [-] Coadministration of strong XTZ325 inducers [-] Treatment of acute bronchospasm [-] History of depression, anxiety, suicidal thoughts or behavior, unless determined, in consultation with a mental health specialist, that roflumilast can be used [-] or nursing Inclusion Criteria The answers to all of the following must be fulfilled in order to meet criteria. [+] Care is provided by a OR/OR [facility] plastic boat patcher (or designated expert) COPD associated with chronic bronchitis (daily cough with production of sputum for 3 months, two years in a row) [+] FEV1 less than or equal to 50% predicted [+] At least 1 recorded COPD exacerbation requiring systemic steroids, unscheduled healthcare contact, or hospitalization in the previous year [+] Maintenance bronchodilator therapy optimized (inhaled anticholinergics, long-acting beta-agonists) [+] Inhaled corticosteroid therapy optimized unless use determined to be medically inappropriate Request is approved. The request is approved - No formulary-preferred alternative /es/ Jade R Rice-Az, PharmD, BCPS, BCGP Pharmacist Signed: 01/28/2024 10:39 JADE SEGURA [facility]
--- OUTSIDE RECORDS SUMMARY | 2024-10-30 08:54 | XMS_ITS | Clinical Summary ---
Author Organization [facility] Address [address] [place] [address] Care Team Providers Care Coffee Brewer Name Role Phone Chavez Adames MD Primary Care Provider [phone] Yanick Jackson MD Unavailable [phone] Gokul Julien MD Unavailable [phone] Teri Jerome PA-C Unavailable [phone] Allergies Active Allergy Reactions Criticality Noted Date Comments Lisinopril Cough,Unknown Medium 07/25/2017 lisinopril Medications * This document contains information received from the source organization and may not represent a complete record from that organization. metFORMIN ER, OSM, 1000 MG TABLET SR 24 HR 24 hr tablet Take 1 tablet (1,000 mg total) by mouth 2 (two) times daily. Active simvastatin (ZOCOR) 40 MG tablet Take 1 tablet (40 mg total) by mouth nightly at bedtime. Active tiotropium [address] 1 capsule (18 mcg total) into inhaler and inhale daily. Active albuterol sulfate HFA 108 (90 Base) MCG/ACT inhaler Inhale 2 puffs into the lungs 4 (four) times daily as needed. Active omeprazole 20 MG capsule Take 2 capsules (40 mg total) by mouth daily. Active sacubitril-valsa rtan (ENTRESTO) 49-51 MG tablet Take 1 tablet by mouth 2 (two) times daily. 60 tablet 11 1 Active gabapentin (NEURONTIN) 600 MG tablet Take 1 tablet (600 mg total) by mouth 2 (two) times a day. Active fluticasone-salm eterol 500-50 MCG/DOSE inhaler Inhale 1 puff into the lungs 2 (two) times daily. Active fish oil 1000 MG Cap capsule Take 1 capsule (1,000 mg total) by mouth daily. Active Cholecalciferol (VITAMIN D) 50 MCG (2000 UT) Tab Take 1 tablet (50 mcg total) by mouth daily. Active spironolactone 25 MG tablet Take 1 tablet (25 mg total) by mouth daily. 90 tablet 3 2 Active Additional Information Patient taking differently: 12.5 mgOral Daily, Reported on 10/27/2024 apixaban 5 MG tablet Take 1 tablet (5 mg total) by mouth 2 (two) times daily. 180 tablet 3 2 Active furosemide (LASIX) 40 MG tablet Take 1 tablet (40 mg total) by mouth daily. 30 tablet 11 2 Active metoprolol succinate ER (TOPROL-XL) 25 MG 24 hr tablet Take 0.5 tablets (12.5 mg total) by mouth daily. 30 tablet 5 3 Active sotalol (BETAPACE) 120 MG tabletIndication s:Paroxysmal atrial fibrillation (CMS/HCC HHS/HCC) Take 1 tablet (120 mg total) by mouth 2 (two) times daily. 60 tablet 4 Active fluticasone (FLOVENT HFA) 110 MCG/ACT inhaler Inhale 2 puffs into the lungs 2 (two) times daily. Active Albuterol Sulfate, sensor, 108 (90 Base) MCG/ACT AEROSOL POWDER, BREATH ACTIVATED Inhale 90 mcg into the lungs 4 (four) times daily as needed. Active Active Problems Problem Noted Date Diagnosed Date Lipoma of neck 01/27/2024 S/P ablation of atrial fibrillation 06/28/2023 S/P ablation of ventricular arrhythmia 4 Sciatica of left side 12/29/2022 PVC (premature ventricular contraction) 11/16/19 23 Anemia 06/14/[address] scan, lung 12/11/2017 Abnormal chest x-ray 12/04/2017 S/P coronary artery stent placement 07/23/2017 Post-nasal drip 02/15/2014 GERD (gastroesophageal reflux disease) 4 Snoring 10/26/2013 Overview (02/19/2019): Description: Untreated obstructive sleep apnea with exertional shortness of breath Chronic cough 10/20/2013 Dyspnea 10/20/2013 Wheezing 10/20/2013 Coronary artery disease Hyperlipidemia Hypertension LV dysfunction MARY (obstructive sleep apnea) Overview (02/19/2019): Description: severe MARY with AHI>50/HR. to be started on autoPAP Elevated hemoglobin A1c COPD (chronic obstructive pu lmonary disease) ([facility]) Agent orange exposure CHF (congestive heart failure) ([facility]) Paroxysmal atrial fibrillation ([facility]) Resolved Problems Problem Noted Date Diagnosed Date Resolved Date COPD exacerbation ([facility]) 06/14/2019 06/15/2019 Encounter for preventive health examination 10/18/2013 02/25/2020 Encounters Date Type Department Care Team Description 10/27/2024 2:45 PM CDT Office Visit [facility] [address] [place] [address] Gokul Julien MD Follow Up 10/27/2024 2:02 PM CDT - 10/27/2024 11:59 PM CDT Hospital [facility] [address] Gokul Julien MD Arrived Discharge Disposition: Home or Self Care (Routine Discharge) 10/27/2024 Travel 10/27/2024 Orders Only [facility] [place] [address] Gokul Julien MD 10/26/2024 Telephone [facility] [place] [address] Gokul Julien MD Appointment Reminder 09/28/2024 Telephone [facility] [address] [place] [address] Gokul Julien MD Referral 09/02/2024 Telephone [facility] [address] [place] [address] Gokul Julien MD Reschedule 08/21/2024 1:04 PM ARMATURE TESTER - 08/21/2024 3:31 PM [facility] Emergency [facility] [address] [place] [address] [place] [address] Pranay Lawler, DO Urinary Symptoms Discharge Disposition: Home or Self Care (Routine Discharge) 08/21/2024 Travel 08/18/2024 7:16 AM ARMATURE TESTER - 08/18/2024 9:43 AM [facility] Emergency [facility] [address] [place] [address] [place] [address] Pranay Lawler, DO Urinary Symptoms Discharge Disposition: Home or Self Care (Routine Discharge) 08/18/2024 Travel 08/17/2024 7:16 PM ARMATURE TESTER - 08/17/2024 8:55 PM [facility] Emergency [facility] [address] [place] [address] [place] [address] Cristian Farley MD Urinary Symptoms Discharge Disposition: Home or Self Care (Routine Discharge) 08/17/2024 Travel 08/09/2024 3:20 PM ARMATURE TESTER - 08/09/2024 7:32 PM [facility] Room [address] [place] [address] [place] [address] Jl Zuniga MD Cough; Breathing Problem Discharge Disposition: Home or Self Care (Routine Discharge) 08/09/2024 Travel from Last 3 Months Family History Medical History Relation Comments Colon Cancer Brother 2 Stroke Father Heart Attack Mother Kidney Cancer Sister 2 Relation Status Comments Brother 1 Alive Brother 2 Alive Brother 3 Alive Brother 4 Alive Brother 5 Alive Brother 6 Alive Brother 7 Alive Father Mother Sister 1 Alive Sister 2 Alive Sister 3 Alive Sister 4 Alive Social History Tobacco Use Types Packs/Day Years Used Date Smoking Tobacco: Former Cigarettes 1 50 1 954 - 2004 Smokeless Tobacco: Never Tobacco Cessation:Counseling Given: Not Answered Alcohol Use Standard Drinks/Week Comments No 0 (1 standard drink = 0.6 oz pur e alcohol) Humiliation, Afraid, Rape, and Kick questionnair e Answer Date Recorded Within the last year, have y ou been afraid of your partner or ex-partner? No 11/15/2022 Within the last year, have y ou been humiliated or emotionally abused in other ways by your partner or ex-partner? No Within the last year, have y ou been kicked, hit, slapped, or otherwise physically hurt by your partner or ex-partner? No 11/15/2022 Within the last year, have y ou been raped or forced to have any kind of sexual activity by your partner or ex-partner? No 11/15/2022 Overall Financial Resource Strain (CARDIA) Answe r Date Recorded How hard is it for you to pa y for the very basics like food, housing, medical care, and heating? Not hard at all 11/15/2022 Hunger Vital Sign Answer Date Recorded Within the past 12 months, y ou worried that your food would run out before you got the money to buy more. Never true 11/16/19 23 Within the past 12 months, t he food you bought just didn't last and you didn't have money to get more. Never true 11/15/2022 PRAPARE - Transportation Answer Date Re corded In the past 12 months, has l ack of transportation kept you from medical appointments or from getting medications? No 07/2022 In the past 12 months, has l ack of transportation kept you from meetings, work, or from getting things needed for daily living? No 11/15/2022 Housing Stability Vital Sign Answer Venkatesh e Recorded In the last 12 months, was t here a time when you were not able to pay the mortgage or rent on time? No 11/15/2022 In the last 12 months, how many places have you lived? 1 11/15/2022 In the last 12 months, was t here a time when you did not have a steady place to sleep or slept in a custodial (including now)? No 11/15/2022 Sex and Gender Information Value Date Recorded Sex Assigned at Male 08/09/2024 3:31 PM ARMATURE TESTER Legal Sex Male 11:57 PM CDT Gender Identity Male 06/14/2019 10:46 AM ARMATURE TESTER Sexual Orientation Not on file Occupation Industry Job Start Date Job End Date Not on file Not on file Not on file Not on file Last Filed Vital Signs Vital Sign Reading Time Taken Comments Blood Pressure 114/59 10/27/2024 2:27 PM CDT Pulse 63 10/27/2024 2:27 PM CDT Temperature 36.9 C (98.4 F) 08/21/2024 1:06 PM ARMATURE TESTER Respiratory Rate 22 10/27/2024 2:27 PM CDT Oxygen Saturation 97% 10/27/2024 2:27 PM CDT Inhaled Oxygen Concentration - - Weight 76.8 kg (169 lb 6.4 oz) 10/27/2024 2:27 P M CDT Height 175.3 cm (5' 9 ) 10/27/2024 2:27 PM CDT Body Mass Index 25.02 10/27/2024 2:27 PM CDT Plan of Treatment Health Maintenance Due Date Last Done Comments ASCVD Statin 1945 Kidney Health Evaluation 1945 Diabetes: Retinopathy Eye Exam 1962 Annual Medicare Wellness Visit 2009 RSV Immunization or 60+ Years (1 - 1-dose 75+ series) 10/14/2019 ASCVD LDL 11/01/2021 11/01/2020, 04/16, 02/18/2014 COVID-19 Vaccine ( season) 2024 08/22/2020, 07/21/2020 PHQ-2 (Physician Elberta) 06/16/2024 Hemoglobin A1C 12/13/2024 06/14/2024, 10/14, 04/30/2017 Lipid Panel 06/14/2025 06/14/2024, 08/2023, 11/01/2020, Additional history exists DTaP, Tdap and Td Vaccines (2 - Td or Tdap) 12/23/2033 12/24/2023 Pneumococcal Vaccine: 50+ Years Completed 08/27/2022 Zoster Vaccines Completed 12/27/2022, 08/27/2022 Meningococcal B Vaccine Aged Out No l onger eligible based on patient's age to complete this topic Meningococcal Vaccine Aged Out No roscoe marita eligible based on patient's age to complete this topic RSV Immunizations Under 20 Months Aged Out No longer eligible based on patient's age to complete this topic Procedures Procedure Name Priority Date/Time Associated Diagnosis Comments ECG 12-LEAD Routine 10/27/2024 2:20 PM CDT Paroxysmal atrial fibrillation ([facility]) PVC (premature ventricular contraction) CHF (congestive heart failure) ([facility]) HC URINALYSIS AUTO W/MICRO STAT 08/17/2024 8:01 PM ARMATURE TESTER LACTIC ACID W REFLEX (SEPSIS) TIMED 08/09/2024 5:30 PM ARMATURE TESTER XR CHEST PA+LAT STAT 08/09/2024 3:33 PM ARMATURE TESTER CORONAVIRUS (COVID-19) ANTIGEN STAT 08/09/2024 3:30 PM ARMATURE TESTER INFLUENZA A & B STAT 08/09/2024 3:30 PM ARMATURE TESTER ECG 12-LEAD Routine 08/09/2024 3:25 PM ARMATURE TESTER PRO-BRAIN NATRIURETIC PEPTIDE STAT 08/09/2024 3:21 PM ARMATURE TESTER LACTIC ACID W REFLEX (SEPSIS) STAT 08/09/2024 3:21 PM ARMATURE TESTER TROPONIN, QUANT STAT 08/09/2024 3:21 PM ARMATURE TESTER COMPREHENSIVE METABOLIC PANEL STAT 08/09/2024 3:21 PM ARMATURE TESTER CBC W/DIFF AUTOMATED STAT 08/09/2024 3:21 PM ARMATURE TESTER LIPID PANEL Routine 06/14/2024 HEMOGLOBIN, GLYCOSYLATED Routine 06/14/2024 LIPID PANEL Routine 11/01/2020 from Last 3 Months or Most Recently Relevant to Health Maintenance Results * ECG 12 lead (HOSPITAL PERFORMED ONLY) (10/27/2024 2:20 PM CDT) Only the most recent of2 resultswithin the time period is included. 10/27/2024 2:2 0 PM CDT Narrative [facility] - 10/27/2024 2:41 PM CDT [address] [place] [address] Test Date: 2024-10-27 Pat Name: GAYLE ELLIOT Department: 3 Room: Gender: Male [employer] Internship: : 1945 Requested By: GOKUL JULIEN Order Number: [id number] Reading MD: Gokul Julien Measurements Intervals [place] Rate: 62 P: 91 WY: 183 QRS: 80 QRSD: 142 T: 59 QT: 483 QTc: 494 Interpretive Statements SINUS RHYTHM WITH OCCASIONAL SUPRAVENTRICULAR PREMATURE COMPLEXES INTRAVENTRICULAR CONDUCTION DELAY PROBABLE LATERAL MYOCARDIAL INFARCTION , OF INDETERMINATE AGE INFERIOR MYOCARDIAL INFARCTION , PROBABLY OLD Procedure Note Gokul Julien MD - 10/27/[address] [place] [address] Test Date: 2024-10-27 Pat Name: GAYLE ELLIOT Department: 3 Room: Gender: Male Equine Internship: : 1945 Requested By: GOKUL JULIEN Order Number: [id number] Reading MD: Gokul Julien Measurements Intervals [place] Rate: 62 P: 91 WY: 183 QRS: 80 QRSD: 142 T: 59 QT: 483 QTc: 494 Interpretive Statements SINUS RHYTHM WITH OCCASIONAL SUPRAVENTRICULAR PREMATURE COMPLEXES INTRAVENTRICULAR CONDUCTION DELAY PROBABLE LATERAL MYOCARDIAL INFARCTION , OF INDETERMINATE AGE INFERIOR MYOCARDIAL INFARCTION , PROBABLY OLD us Gokul Julien MD ECG ORDERABLES Final Res ult [facility] * (ABNORMAL) URINALYSIS (08/17/2024 8:01 PM ARMATURE TESTER) COLOR (U) YELLOW 08/17/2024 8:14 PM ARMATURE TESTER [facility] TRANSPARENCY CLEAR 08/17/2024 8:14 PM ARMATURE TESTER [facility] SPECIFIC GRAVITY (U) 1.015 1.000 - 1.025 08/17/2024 8:14 PM ARMATURE TESTER [facility] U PH 7.0 5.0 - 8.0 08/17/2024 8:[address] [facility] LEUKOCYTES (U) NEGATIVE NEGATIVE 08/17/2024 8:14 PM ARMATURE TESTER [facility] NITRITES NEGATIVE NEGATIVE 08/17/2024 8:14 PM ARMATURE TESTER [facility] PROTEIN RANDOM (U) TRACE(A) NEGATIVE 08/17/2024 8:[address] [facility] GLUCOSE (U) NEGATIVE NEGATIVE 08/17/2024 8:[address] [facility] KETONES MG/DL (U) NEGATIVE NEGATIVE 08/17/2024 8:[address] [facility] UROBILINOGEN 2.0(H) <1.0 EU/DL 08/17/2024 8:14 PM ARMATURE TESTER [facility] BILIRUBIN (U) NEGATIVE NEGATIVE 08/17/2024 8:[address] [facility] BLOOD (U) NEGATIVE NEGATIVE 08/17/2024 8:14 PM ARMATURE TESTER [facility] WBC/HPF 0-5 0 - 5 /HPF 08/17/2024 8:14 PM ARMATURE TESTER [facility] EPI/LPF OCCASIONAL /LPF 08/17/2024 8:14 PM ARMATURE TESTER [facility] BACTERIA (U) 2+ /HPF 08/17/2024 8:14 PM ARMATURE TESTER [facility] MUCUS PRESENT 08/17/2024 8:[address] [facility] URINE SPECIMEN OBTAINED BY CLEAN CATCH PROCEDURE / Unknown 08/17/2024 8:01 PM ARMATURE TESTER us Cristian Farley MD URINE ORDERABLES Final Result [facility] [address] [place] [id number], [place] [phone] * (ABNORMAL) LACTIC ACID W REFLEX (SEPSIS) (08/09/2024 5:30 PM ARMATURE TESTER) Only the most recent of2 resultswithin the time period is included. LACTIC ACID VENOUS 3.3(H) 0.4 - 2.0 MMOL/L 08/09/2024 5:58 PM ARMATURE TESTER [facility] 08/09/2024 5:30 PM ARMATURE TESTER us Jl Zuniga MD LABORATORY Final Result [facility] [address] [place] [id number], [place] [phone] * XR CHEST PA+LAT (08/09/2024 3:33 PM ARMATURE TESTER) Anatomical Region Laterality Modality Chest Radiographic Maryan ging 08/09/2024 3:34 PM ARMATURE TESTER Impressions 08/09/2024 3:36 PM ARMATURE TESTER IMPRESSION: 1. No definitive radiographic evidence of active chest disease. 2. Emphysematous changes. Ordered By: JL ZUNIGA Interpreted By: Chavez Herring MD, 08/09/2024 3:34 PM Narrative 08/09/2024 3:36 PM ARMATURE TESTER [address] [place] [address] Examination: XR CHEST PA+LAT Exam time: 08/09/2024 3:32 PM Clinical history: Shortness of breath. History COPD. Comparison: 09/17/2022 PA and lateral chest Technique: Upright PA and lateral views Findings: Cardiac silhouette and pulmonary vasculature are within normal limits. Slightly prominent left pericardiac apical fat pad. Linear opacity right hilar region most consistent with scarring. Posterior peripheral vasculature mid and upper lung zones suggestive of emphysematous changes. Slight increase in anterior posterior dimension of the chest with flattening of each hemidiaphragm consistent with emphysematous change. No definitive evidence of acute pulmonary infiltrate or consolidation. No evidence of pleural effusion. Procedure Note Chavez Herring MD - 08/09/2024 [facility] [address] [place] [address] Examination: XR CHEST PA+LAT Exam time: 08/09/2024 3:32 PM Clinical history: Shortness of breath. History COPD. Comparison: 09/17/2022 PA and lateral chest Technique: Upright PA and lateral views Findings: Cardiac silhouette and pulmonary vasculature are within normallimits. Slightly prominent left pericardiac apical fat pad. Linear opacityright hilar region most consistent with scarring. Posterior peripheralvasculature mid and upper lung zones suggestive of emphysematous changes.Slight increase in anterior posterior dimension of the chest withflattening of each hemidiaphragm consistent with emphysematous change. Nodefinitive evidence of acute pulmonary infiltrate or consolidation. Noevidence of pleural effusion. IMPRESSION: 1. No definitive radiographic evidence of active chest disease. 2. Emphysematous changes. Ordered By: JL ZUNIGA Interpreted By: Chavez Herring MD, 08/09/2024 3:34 PM Jl Zuniga MD GENERAL IMAGING Final Result * CORONAVIRUS (COVID-19) ANTIGEN (08/09/2024 3:30 PM ARMATURE TESTER) CORONAVIRUS ANTIGEN IA NEGATIVE NEGATIVE 08/09/2024 4:36 PM ARMATURE TESTER [facility] Comment: NEGATIVE RESULTS DO NOT RULE OUT SARS-COV-2 INFECTION AND SHOULD NOT BE USED THE SOLE BASIS FOR TREATMENT OR PATIENT MANAGEMENT DECISIONS, INCLUDING INFECTION CONTROL DECISIONS. NEGATIVE RESULTS SHOULD BE CONSIDERED IN THE CONTEXT OF A PATIENT'S RECENT EXPOSURES, HISTORY AND THE PRESENCE OF CLINICAL SIGNS AND SYMPTOMS CONSISTENT WITH COVID 19. THIS TEST HAS BEEN AUTHORIZED BY THE FDA UNDER AN EMERGENCY USE AUTHORIZATION (EUA) FOR USE BY AUTHORIZED LABORATORIES. SPECIMEN TYPE NASAL 08/09/2024 3:32 PM ARMATURE TESTER [facility] NASAL NASAL STRUCTURE / Unknown 08/09/2024 3:30 PM ARMATURE TESTER Jl Zuniga MD MICROBIOLOGY - G ENERAL ORDERABLES Final Result [facility] [address] [place], [place] [id number], * INFLUENZA A & B (08/09/2024 3:30 PM ARMATURE TESTER) SPECIMEN TYPE (INFLUENZA) NASOPHARYNGEAL SWAB 08/09/2024 3:32 PM ARMATURE TESTER [facility] INFLUENZA A NEGATIVE NEGATIVE 08/09/2024 4:36 PM ARMATURE TESTER [facility] INFLUENZA B NEGATIVE NEGATIVE 08/09/2024 4:36 PM ARMATURE TESTER [facility] Comment: A NEGATIVE RESULT DOES NOT EXCLUDE INFLUENZA VIRUS INFECTION. IF INFLUENZA IS CIRCULATING IN YOUR COMMUNITY, A DIAGNOSIS OF INFLUENZA SHOULD BE CONSIDERED BASED ON A PATIENT'S CLINICAL PRESENTATION AND EMPIRIC ANTIVIRAL TREATMENT SHOULD BE CONSIDERED IF INDICATED. NASAL NASOPHARYNGEAL SWAB / Unknown 08/09/2024 3:30 PM ARMATURE TESTER Jl Zuniga MD MICROBIOLOGY - G ENERAL ORDERABLES Final Result Performing Organization Address City/[facility]/ZIP Co de Phone Number [facility] [address] [place] [id number], * (ABNORMAL) PRO-BRAIN NATRIURETIC PEPTIDE (08/09/2024 3:21 PM ARMATURE TESTER) PRO-B TYPE NATRIURETIC PEPTIDE 499(H) <450 PG/ML 08/09/2024 3:51 PM ARMATURE TESTER [facility] Comment: CUT POINTS ESTABLISHED BY INTERNATIONAL COLLABORATIVE ON NT PROBNP (ICON) STUDY (2006). AGE INDEPENDENT: <300 PG/ML HAS A 99% NEGATIVE PREDICTIVE VALUE FOR EXCLUDING ACUTE CHF <50 YEARS: >450 PG/ML IS CONSISTENT WITH ACUTE CHF 50-75 YEARS: >900 PG/ML IS CONSISTENT WITH ACUTE CHF >75 YEARS: >1800 PG/ML IS CONSISTENT WITH ACUTE CHF IN PATIENTS WITH RENAL INSUFFICIENCY (GFR <60), >1200 PG/ML YIELDS A DIAGNOSTIC SENSITIVITY AND SPECIFICITY OF 89% AND 72% FOR ACUTE CHF. 08/09/2024 3:21 PM ARMATURE TESTER Jl Zuniga MD LABORATORY Final Result [facility] [address] [place] [address], * (ABNORMAL) COMPREHENSIVE METABOLIC PANEL (08/09/2024 3:21 PM ARMATURE TESTER) SODIUM S/P/B 140 136 - 145 MMOL/L 08/09/2024 3:51 PM ARMATURE TESTER [facility] POTASSIUM S/P/B 3.7 3.5 - 5.1 MMOL/L 08/09/2024 3:51 PM ARMATURE TESTER [facility] CHLORIDE S/P/B 101 98 - 107 MMOL/L 08/09/2024 3:51 PM ARMATURE TESTER [facility] CO2 29.3 21.0 - 32.0 MMOL/L 08/09/2024 3:[address] [facility] GLUCOSE 108(H) 70 - 99 MG/DL 08/09/2024 3:[address] [facility] Comment: FASTING GLUCOSE 100 TO 125 MG/DL IS CONSISTENT WITH IMPAIRED FASTING GLUCOSE. FASTING GLUCOSE >125 MG/DL IS CONSISTENT WITH DIABETES. RANDOM GLUCOSE >200 MG/DL WITH HYPERGLYCEMIC SYMPTOMS IS CONSISTENT WITH DIABETES. PER ADA GUIDELINES BUN 7 6 - 24 MG/DL 08/09/2024 3:51 PM ARMATURE TESTER [facility] CREATININE S/P/B 0.75 0.70 - 1.30 MG/DL 08/09/2024 3:[address] [facility] CALCIUM S/P/B 9.8 8.4 - 10.5 MG/DL 08/09/2024 3:[address] [facility] BILIRUBIN TOTAL S/P/B 1.3(H) 0.2 - 1.0 MG/DL 08/09/2024 3:[address] [facility] Comment: THIS ASSAY IS NOT RECOMMENDED FOR PATIENTS UNDERGOING TREATMENT WITH ELTROMBOPAG DUE TO THE POTENTIAL FOR FALSELY ELEVATED RESULTS. ALKALINE PHOSPHATASE S/P/B 278(H) 45 - 115 U/L 08/09/2024 3:[address] [facility] AST 48(H) 15 - 37 U/L 08/09/2024 3:51 PM ARMATURE TESTER [facility] ALT 88(H) 16 - 63 U/L 08/09/2024 3:[address] [facility] TOTAL PROTEIN S/P/B 8.0 6.4 - 8.2 G/DL 08/09/2024 3:[address] [facility] ALBUMIN S/P/B 2.7(L) 3.4 - 5.0 G/DL 08/09/2024 3:[address] [facility] ANION GAP 9.7 5.0 - 15.0 MMOL/L 08/09/2024 3:[address] [facility] OSMOLALITY (CALC) 288 MOSM/KG 025 3:[address] [facility] Comment:REFERENCE RANGE NOT ESTABLISHED GFR ESTIMATE >90 >89 ML/MIN/1. 73 M2 08/09/2024 3:[address] [facility] GFR NOTES GFR REFERENCE S: 08/09/2024 3:[address] [facility] Comment: THE ESTIMATED GFR IS CALCULATED USING THE 2020 CKD-EPI EQUATION. THE FOLLOWING CATEGORIES FOR GRADING RENAL FUNCTION ARE RECOMMENDED BY THE INTERNATIONAL SOCIETY OF NEPHROLOGY (KDIGO 2012 CLINICAL PRACTICE GUIDELINE). G1,NORMAL OR HIGH: >89 ml/min/1.73 m2 G2,MILDLY DECREASED: 60-89 ml/min/1.73 m2 G3A,MILDLY TO MODERATELY DECREASED: 45-59 ml/min/1.73 m2 G3B,MODERATELY TO SEVERELY DECREASED: 30-44 ml/min/1.73 m2 G4,SEVERELY DECREASED: 15-29 ml/min/1.73 m2 G5,KIDNEY FAILURE: <15 ml/min/1.73 m2 08/09/2024 3:21 PM ARMATURE TESTER us Jl Zuniga MD LABORATORY Final Result [facility] [address] [place] [address], * (ABNORMAL) CBC W/DIFF AUTOMATED (08/09/2024 3:21 PM ARMATURE TESTER) WBC 12.45(H) 4.00 - 10.80 x10'3/uL 08/09/2024 3:[address] [facility] RBC 4.89 4.50 - 6.10 x10'6/uL 08/09/2024 3:[address] [facility] HGB 14.1 13.0 - 18.0 G/DL 08/09/2024 3:[address] [facility] HCT 42.7 37.0 - 52.0 % 08/09/2024 3:[address] [facility] MCV 87.3 78.0 - 100.0 FL 08/09/2024 3:[address] [facility] MCH 28.8 27.0 - 31.0 PG 08/09/2024 3:[address] [facility] MCHC 33.0 33.0 - 36.0 G/DL 08/09/2024 3:[address] [facility] RDW 12.2 11.5 - 14.5 % 08/09/2024 3:[address] [facility] PLT 400(H) 150 - 350 x10'3/uL 08/09/2024 3:[address] [facility] MPV 8.8 7.4 - 10.4 FL 08/09/2024 3:[address] [facility] CBC COMMENT NORMAL REFERENCE RANGE NOT ESTABLISHED FOR THE PROPORTIONAL LEUKOCYTE DIFFERENTIAL. 08/09/2024 3:[address] [facility] NEUTROPHILS % 80.7 % 08/09/2024 3:[address] [facility] LYMPHOCYTES % 11.5 % 08/09/2024 3:[address] [facility] MONOCYTES % 6.6 % 08/09/2024 3:[address] [facility] EOSINOPHILS % 0.6 % 08/09/2024 3:[address] [facility] BASOPHILS % 0.4 % 08/09/2024 3:26 PM [facility] IMMATURE GRANS % 0.2 % 08/09/19 3:26 PM [facility] [id number]|2024-10-30 08:55:00|2024-10-30 03:54:00|XMS_ITS|JEREMÍASG JOSE|External Medical Summaries|[id number]|" [facility] ADMIN PAT ACTIVTIES ([facility]ASNONCT) [facility] Encounter Summary Created on: October 30, 2024 GAYLE SANDRA : 1945 Sex: Male Author Name [facility] [place] Address [address] [place] [address] Care Team Providers Care Coffee Brewer Name Role Phone SHOAIB ALEJANDRO Primary Care Provider Unavailabl e CHAVEZ ADAMES Primary Care Provider Unavailabl e Insurance Providers: [...] PART B Dec 14, 2008 PART B [id number] [phone] MIS SANDRA PATIENT MEDICARE (WNR) MEDICARE (M) PART B Dec 14, 2008 PART B [id number] MIS SANDRA PATIENT MEDICARE (WNR) MEDICARE (M) PART B Dec 14, 2008 PART B [id number] MIS SANDRA HN PATIENT MEDICARE (WNR) MEDICARE (M) PART B Dec 14, 2008 PART B [id number] MIS SANDRA HN PATIENT MEDICARE (WNR) MEDICARE (M) PART A Sep 14, 2006 PART A [id number] MIS SANDRA HN PATIENT MEDICARE (WNR) MEDICARE (M) PART A Sep 14, 2006 PART A [id number] MIS SANDRA HN PATIENT MEDICARE (WNR) MEDICARE (M) PART A Sep 14, 2006 PART A [id number] MIS SANDRA HN PATIENT MEDICARE (WNR) MEDICARE (M) PART A Sep 14, 2006 PART A [id number] MIS SANDRA PATIENT MEDICARE PART D (WNR) PRESCRIPT ION PART D Jun 16, 2014 PART D [id number] MIS SANDRA PATIENT Selected Encounter This section includes the information on record at [place] for the Encounter. Date/Time Encounter Type Encounter Description Reason Pro vider Source Dec 25, 2023 01:35 PM Outpatient Encounter ADMIN PAT ACTIVTIES (MASNONCT) [facility] Encounter Template Text not used by [place] Plan of Treatment: Future Appointments (+ 6 months) and Future Tests (+/- 45 days) The Plan of Treatment section includes future care activities for the patient from all [place] treatmentfacilities. This section includes future appointments and future orders which are active, pending or scheduled. Future Appointments This section includes appointments that were scheduled to occur 6 months from the date of the Encounter, up to a maximum of 20 appointments. The data comes from all [place] treatment facilities. Appointment Date/Time Appointment Type Appointme nt Facility Name Jan 08, 2024 01:00 PM [facility]ORY - NONE [facility] Jan 14, 2024 09:30 AM AMB[facility]ORY - NONE [facility] Jan 23, 2024 01:30 PM [facility] - NONE [facility] Jan 23, 2024 04:15 PM AMBULATORY - SURGERY [facility] Feb 19, 2024 02:00 PM [facility]ORY [facility] SURG[facility] Jun 02, 2024 02:00 PM AMBULATORY - NONE [facility] Jun 14, 2024 03:00 PM AMBULATORY - NONE [facility] Jun 21, 2024 03:00 PM AMBULATORY - MEDICINE [facility] Lab Results: +/- 30 days of the encounter This section includes the Chemistry and Hematology Lab Results on record with [place] for the patient. Radiology Reports and Pathology Reports are provided separately, in subsequent sections. Lab Results This section contains the Chemistry/Hematology Results that were resulted 30 days before or 30 daysafter the date of the Encounter. Date/Time Source Result Type Result - Unit Interpretation Reference Range Specimen Type Comment Dec 17, 2023 02:10 PM [facility] PSA TOTAL EIA SERUM Specimen Type: SERUM Comment: PSA was performed on the GuzzMobile Immunoassay Analyzer. Ordering Provider: CHAVEZ ADAMES Report Released Date/Time: Jun 25, 2023 02:46 PM Reporting Lab: [address] [address] Performing Lab: [address] [address] PSA TOTAL EIA 6.09 ng/mL H 0.00-4.00 Dec 17, 2023 02:10 PM [facility] A1C % BLOOD Specimen Type: BLOOD Comment: Normal: < or = 5.6% Pre-diabetes: 5.7-6.4% Diabetes Mellitus: > or = 6.5% Values obtained from A1C measurements can vary. For typical A1C assays, a reported value of 7.0 could actually be between 6.72 and 7.28 if measured by a reference method. A reported value of 9.0 could actually be between 8.73 and 9.27. Ref: http://www.ngsp.org/CAPdata.asp Ordering Provider: CHAVEZ ADAMES Report Released Date/Time: Jun 25, 2023 02:46 PM Reporting Lab: [address] [address] Performing Lab: [address] [address] A1C % 6.7 H 0.0-5.6 Dec 17, 2023 02:10 PM [facility] COMPREHENSIVE PNL PLASMA Specime n Type: PLASMA Comment: eGFR was calculated using the CKD-EPI Creatinine (2020) equation. Ordering Provider: CHAVEZ ADAMES Report Released Date/Time: Jun 25, 2023 02:46 PM Reporting Lab: [address] [address] Performing Lab: [place] [phone] ANION GAP 5 mmol/L 5-15 EGFR 94 mL/min > 60 GLUCOSE 183 mg/dL H 70-99 POTASSIUM 3.7 mmol/L 3.5-4.7 SODIUM 135 mmol/L L 136-145 BILI,TOTAL 1.4 mg/dL H 0.2-1.2 PROTEIN, TOTL 7.3 g/dL 5.7-8.2 ALBUMIN 4.3 g/dL 3.4-5.0 ALKAL PHOS 61 U/L 45-117 ALT 17 U/L 10-65 AST 11 U/L 10-37 UREA NITROGEN 6 mg/dL L 7-21 CALCIUM, TOTAL 9.2 mg/dL 8.7-10.4 CO2 31.0 mmol/L 21.0-32.0 CHLORIDE 99 mmol/L 98-109 CREATININE 0.69 mg/dL 0.67-1.17 Dec 17, 2023 02:10 PM [facility] CBC W/DIFF BLOOD Specimen T ype: BLOOD No comment entered. Ordering Provider: CHAVEZ ADAMES Report Released Date/Time: Jun 25, 2023 02:46 PM Reporting Lab: [address] [address] Performing Lab: [address] [address] WBC 8.4 10*3/uL 4.0-11.0 RBC 5.29 10*6/uL 4.20-5.70 HGB 15.8 g/dL 13.0-17.0 HCT 47.5 40.0-51.0 MCV 89.8 fL 82-99 MCH 29.9 pg 27-34 MCHC 33.3 g/dL 31-37 MPV 10.0 fL 8-[address] 239 10*3/uL 130-400 RDW-CV 12.0 < 15.0 NEUTROPHILS% 61.8 LYMPHS% 27.9 MONOS% 7.6 EOS% 1.4 BASOS% 1.1 IG% 0.2 NEUTROPHILS# 5.2 10*3/uL 1.5-8.0 LYMPHS# 2.3 10*3/uL 1.0-4.0 MONOS# 0.6 10*3/uL 0.2-1.0 EOS# 0.1 10*3/uL 0-0.4 BASOS# 0.1 10*3/uL 0-0.2 IG# <0.1 10*3/uL 0-0.5 NRBC% 0.0 /100{WBCs} 0-0.2 NRBC# <0.01 10*3/uL 0-0.012 Advance Directives: All historical and current Section Date Range: From patient's date of to the date document was created. This section includes ALL of a patient's completed or amended [place] Advance and Rescinded Directives. The entries below indicate that a directive exists for the patient, but an actual copy is not included with this document. The data comes from all [place] facilities. Date Advance Directives Provider Source Jul 13, 2021 ADVANCE DIRECTIVE DISCUSSION KATHIA SEO [facility] Sep 25, 2005 ADVANCE DIRECTIVE MIKEY OSORIO [facility] Encounter Notes: All associated encounter notes This section contains the clinical notes associated to the Encounter. Date/Time Encounter Note(s) Provider Source Dec 25, 2023 02:27 PM ADDENDUM: LOCAL TITLE: Addendum STANDARD TITLE: ADDENDUM DATE OF NOTE: DEC 25, 2023@14:27:56 ENTRY DATE: DEC 25, 2023@14:27:57 AUTHOR: CHAVEZ ADAMES EXP COSIGNER: URGENCY: STATUS: COMPLETED Ranjana see if you can reach vet about his apxiiban. /xena/ Chavez Adames M.D. M.D. Signed: 12/25/2023 14:28 Receipt Acknowledged By: 12/26/2023 09:04 /xena/ RANJANA FLORES RN --- Original Document --- 12/25/23 ANTICOAGULATION HUB DOAC: Direct Oral Anticoagulant (DOAC) Surveillance - Clinical Soil Conservationist Drug: Apixaban WEIGHT/LABS: 188.3 lb [85.41 kg] (12/24/2023 13:51) BMI: BMI: - NO HEIGHTS FOUND OvHw=124.87 (Wt: 12/24/2023 13:51) (Actual Body Weight) SCr Date: DEC 17, 2023 [place] Labs: Test Name Result Units Ref Range Collection DT CREATININE 0.69 mg/dL .73 -1.18 12/17/2023 Test Name Result Units Ref Range Collection DT HGB 15.8 g/dL 13 - 17 12/17/2023 Test Name Result Units Ref Range Collection DT HCT 47.5 % 40 - 51 12/17/2023 Collection DT Specimen Test Name Result Units Ref Range 12/17/2023 14:[address] 239 K/uL 130 - 400 Test Name Result Units Ref Range Collection DT AST 11 U/L 10 - 37 12/17/2023 Test Name Result Units Ref Range Collection DT ALT 17 U/L 10 - 65 12/17/2023 ASSESSMENT: Potential Nonadherance Overdue for Refill by 35+ days. Attempted to reach patient/caregiver by phone to assess potential nonadherence. Per the DOAC PMT, patient has not filled his DOAC since 08/21/2023 for 90 day supply. Unable to reach patient/caregiver to assess. *Will send an adherence letter and/or Secure Message. Alerting PACT to review and follow-up if appropriate. Time Spent in minutes: 6 /xena/ LUCY TOLLIVER Clinical Soil Conservationist Signed: 12/25/2023 13:36 Receipt Acknowledged By: 12/25/2023 14:27 /xena/ Chavez Adames M.D. M.D. 12/26/2023 09:04 /xena/ RANJANA FLORES RN 12/26/2023 ADDENDUM STATUS: UNSIGNED You may not VIEW this UNSIGNED Addendum. CHAVEZ ADAMES [facility] Dec 25, 2023 01:37 PM PHARMACY LETTERS: LOCAL TITLE: ANTICOAGULATION HUB DOAC ADHERENCE LETTER STANDARD TITLE: PHARMACY LETTERS DATE OF NOTE: DEC 25, 2023@13:37 ENTRY DATE: DEC 25, 2023@13:37:10 AUTHOR: LUCY TOLLIVER EXP COSIGNER: URGENCY: STATUS: COMPLETED GAYLE SANDRA [address] [facility] [address] [place], [place] [address] DEC 25, 2023 Dear GAYLE SANDRA The [facility] is responsible for ensuring safe and effective use of your APIXABAN. Our records show that you have not filled your prescription in over a month. Not taking this medication as prescribed can result in a higher risk of stroke and/or life-threatening blood clots. Please remember to take your medication exactly as prescribed and always alert your health care providers that you are taking this medication. You can refill your prescription by calling . Please contact your PACT team if you have stopped taking this medication or if other medical providers have advised you to change your dose. If you have any planned interruptions in therapy (e.g. surgery) please report this as well. THIS IS A COURTESY LETTER. IF YOU ARE TAKING APIXABAN REGULARLY, YOU DO NOT NEED TO [facility]CT [facility] LUCY TOLLIVER [facility] Dec 25, 2023 01:35 PM PHARMACY NOTE: LOCAL TITLE: ANTICOAGULATION HUB DOAC STANDARD TITLE: PHARMACY NOTE DATE OF NOTE: DEC 25, 2023@13:35 ENTRY DATE: DEC 25, 2023@13:35:19 AUTHOR: LUCY TOLLIVER EXP COSIGNER: URGENCY: STATUS: COMPLETED ANTICOAGULATION HUB DOAC Has ADDENDA Direct Oral Anticoagulant (DOAC) Surveillance - Clinical Soil Conservationist Drug: Apixaban WEIGHT/LABS: 188.3 lb [85.41 kg] (12/24/2023 13:51) BMI: BMI: - NO HEIGHTS FOUND NwMy=722.87 (Wt: 12/24/2023 13:51) (Actual Body Weight) SCr Date: DEC 17, 2023 [place] Labs: Test Name Result Units Ref Range Collection DT CREATININE 0.69 mg/dL .73 -1.18 12/17/2023 Test Name Result Units Ref Range Collection DT HGB 15.8 g/dL 13 - 17 12/17/2023 Test Name Result Units Ref Range Collection DT HCT 47.5 % 40 - 51 12/17/2023 Collection DT Specimen Test Name Result Units Ref Range 12/17/2023 14:[address] 239 K/uL 130 - 400 Test Name Result Units Ref Range Collection DT AST 11 U/L 10 - 37 12/17/2023 Test Name Result Units Ref Range Collection DT ALT 17 U/L 10 - 65 12/17/2023 ASSESSMENT: Potential Nonadherance Overdue for Refill by 35+ days. Attempted to reach patient/caregiver by phone to assess potential nonadherence. Per the DOAC PMT, patient has not filled his DOAC since 08/21/2023 for 90 day supply. Unable to reach patient/caregiver to assess. *Will send an adherence letter and/or Secure Message. Alerting PACT to review and follow-up if appropriate. Time Spent in minutes: /xena/ LUCY TOLLIVER Clinical Soil Conservationist Signed: 12/25/2023 13:36 Receipt Acknowledged By: 12/25/2023 14:27 /xena/ Chavez Adames M.D. M.D. 12/26/2023 09:04 /xena/ RANJANA FLORES RN 12/25/2023 ADDENDUM STATUS: COMPLETED Ranjana see if you can reach vet about his apxiiban. /xena/ Chavez Adames M.D. M.D. Signed: 12/25/2023 14:28 Receipt Acknowledged By: 12/26/2023 09:04 /xena/ RANJANA FLORES RN 12/26/2023 ADDENDUM STATUS: COMPLETED TWO OR MORE PATIENT IDENTIFIERS REQUIRED FULL NAME SS NUMBER Method of Contact: Phone Call (audio only) Call Initiated:[id number] Reason for Call:medication Comments:PACT RN contacted Vivian regarding medication. He states his still taking the apixiban as prescribed and did not realize he was almost out of medication. He asked PACT to refill. PACT rn refilled per Vivian request. Advised of ways to refill medication. He verbalized understanding. Call Ended:[phone] /xena/ RANJANA FLORES RN Signed: 12/26/2023 09:07 LUCY TOLLIVER [facility] "
--- OUTSIDE RECORDS SUMMARY | 2024-10-30 08:54 | XMS_ITS | Encounter Summary ---
Author Organization [facility] Address [facility] [place] [address] Care Team Providers Care Armor Officer Name Role Phone Tita Mccain APRN, NP-C Unavailable Dorian Christy MD Unavailable [phone] Dangelo Adames MD Primary Care Provider [phone] Yanick Jackson MD Unavailable [phone] Gokul Mayorga MD Unavailable [phone] Chante Lucas MD Unavailable [phone] Teri Jerome PA-C Unavailable [phone] Encounter Details Date Type Department Care Team (Late st Contact Info) Description 07/12/2019 Abstract [facility] [address] [place] [address] Abstract, Doc [facility] Social History Tobacco Use Types Packs/Day Years Used Date Smoking Tobacco: Former Cigarettes 1 50 1 954 - 2004 Smokeless Tobacco: Never Alcohol Use Standard Drinks/Week Comments No 0 (1 standard drink = 0.6 oz pur e alcohol) Sex and Gender Information Value Date Recorded Sex Assigned at Male 08/09/2024 3:31 PM [employer] Sex Male 11:57 PM CDT Gender Identity Male 06/14/2019 10:46 AM [employer] Sexual Orientation Not on file Occupation Industry Job Start Date Job End Date Not on file Not on file Not on file Not on file documented as of this encounter Functional Status * RETIRED Are you deaf or do you have serious difficulty hearing Answer Date of Assessment Author Status No 06/14/2019 11:02 AM [employer] Acti ve * RETIRED Are you blind or do you have serious difficulty seeing, even when wearing glasses? Answer Date of Assessment Author Status No 06/14/2019 11:02 AM [employer] Acti ve * Do you have serious [...] on file documented as of this encounter Procedures Procedure Name Priority Date/Time Associated Diagnosis Comments PROTHROMBIN TIME, VENOUS Routine 07/01/2019 BASIC METABOLIC PANEL Routine 07/01/2019 CBC, AUTO, NO DIFF Routine 07/01/2019 MAGNESIUM Routine 07/01/2019 documented in this encounter Results * BASIC METABOLIC PANEL (07/01/2019) SODIUM S/P/B 140 POTASSIUM S/P/B 3.9 CO2 9 CHLORIDE S/P/B 102 GLUCOSE 176 mg/dL CALCIUM S/P/B 8.7 BUN 9 CREATININE S/P/B 0.96 0.7 - 1.3 07/01/2019 us Doc [facility] Abstract LABORATORY Final Result * MAGNESIUM (07/01/2019) MAGNESIUM 2.0 07/01/2019 us Doc [facility] Abstract LABORATORY Final Result * PROTIME/INR, VENOUS (07/01/2019) Pathologist [facility] [place] PROTIME WHOLE BLOOD 12.3 9.6 - 12.7 INR WHOLE BLOOD 1.10 07/01/2019 us Doc [facility] Abstract LABORATORY Final Result * (ABNORMAL) CBC, AUTO, NO DIFF (07/01/2019) Pathologist [facility] WBC 7.9 4.23 - 9.07 RBC 4.97 4.63 - 6.08 HGB 10.3(A) 13.7 - 17.5 HCT 37.8(A) 40.1 - 51 MCV 76.1(A) 79 - 92.2 MCH 20.7(A) 25.7 - 32.2 MCHC 27.2(A) 32.3 - 36.5 RDW 21.4(A) 11.6 - 14.4 PLT 288(A) 163 - 337 MPV 10.4 9.4 - 12.4 07/01/2019 us Doc [facility] LABORATORY Final Result documented in this encounter Visit Diagnoses Not on filedocumented in this encounter Additional Health Concerns Infection Onset Date Last Indicated Resolved Time COVID-19 Rule Out 08/09/2024 08/09/2024 08/09/2024 4:36 PM [employer] documented as of this encounter Care Teams Armor Officer Relationship Specialty Start Date End Date Dangelo Adames MD [address] [place] [id number] PCP - General INTERNAL MEDICINE 10/24/17 Tita Mccain, DESIGN CENTER CONSULTANT, AN/SSN 2 4 OPERATOR-C [address] [facility] [address] [place] [address] NURSE PRACTITIONER 05/30/17 01/26/24 Dorian Christy MD [address] [place] [address] CARDIOVASCULAR DISEASE 06/30/17 4 Yanick Jackson MD [address] [address] PULMONARY DISEASE 10/28/17 Gokul Mayorga MD [address] [place] [address] EP Lead Project Engineer CLINICAL CARDIAC ELECTROPHYSIOLOGY 08/27/21 Chante Lucas MD [address] [place] [address] INTERVENTIONAL CARDIOLOGY 11/20/2310/18 Teri Jerome PA-C [address] [place] [address] Referring Physician PHYSICIAN ACCOUNTING MACHINE MECHANIC 10/17/24 documented as of this encounter
--- OUTSIDE RECORDS SUMMARY | 2024-10-30 08:54 | XMS_ITS | Encounter Summary ---
Author Name [facility] [place] [facility] [place] Address [address] [place] [address] Care Team Providers Care Casino Beverage Server Name Role Phone EKATERINARONAN ALEJANDRO Primary Care [...] PART B Dec 14, 2008 PART B [id number] MIS ZARATE HN PATIENT MEDICARE (WNR) MEDICARE (M) PART B Dec 14, 2008 PART B [id number] [phone] MIS ZARATE HN PATIENT MEDICARE (WNR) MEDICARE (M) PART B Dec 14, 2008 PART B [id number] MIS ZARATE HN PATIENT MEDICARE (WNR) MEDICARE (M) PART B Dec 14, 2008 PART B [id number] [phone] MIS ZARATE HN PATIENT MEDICARE (WNR) MEDICARE (M) PART A Sep 14, 2006 PART A [id number] MIS ZARATE PATIENT MEDICARE (WNR) MEDICARE (M) PART A Sep 14, 2006 PART A [id number] MIS ZARATE HN PATIENT MEDICARE (WNR) MEDICARE (M) PART A Sep 14, 2006 PART A [id number] [phone] MIS ZARATE HN PATIENT MEDICARE (WNR) MEDICARE (M) PART A Sep 14, 2006 PART A [id number] [phone] MIS ZARATE PATIENT MEDICARE PART D (WNR) PRESCRIPT ION PART D Jun 16, 2014 PART D [id number] [phone] MIS ZARATE PATIENT Selected Encounter This section includes the information on record at [place] for the Encounter. Date/Time Encounter Type Encounter Description Reason Provider Source Feb 19, 2024 02:00 PM OFFICE O/P NEW LOW 30 MIN OPTOMETRY ICD-10-CM E11.9 Type 2 diabetes mellitus without complications OCTAVIO NOLASCO Dustin Encounter Template Text not used by [place] Assessments - Encounter Diagnoses This section includes the primary and secondary diagnoses documented for the Encounter. Date/Time Primary/Secondary Diagnosis Diagnosis Name Provider Source Feb 19, 2024 03:02 PM PRIMARY Type 2 diabetes mellitus without complications OCTAVIO NOLASCOSTEVEN [facility] Feb 19, 2024 03:02 PM SECONDARY Presbyopia OCTAVIO NOLASCO [facility] Feb 19, 2024 03:02 PM SECONDARY Presence of intraocular lens CONSTANCEOCTAVIO [facility] Feb 19, 2024 03:02 PM SECONDARY Tributary (branch) retinal vein occlusion, left eye, stable [facility]STANCEOCTAVIO [facility] Feb 19, 2024 03:02 PM SECOND[facility], [facility] Plan of Treatment: Future Appointments (+ 6 months) and Future Tests (+/- 45 days) The Plan of Treatment section includes future care activities for the patient from all [place] treatmentfacilities. This section includes future appointments and future orders which are active, pending or scheduled. Future Appointments This section includes appointments that were scheduled to occur 6 months from the date of the Encounter, up to a maximum of 20 appointments. The data comes from all [place] treatment facilities. Appointment Date/Time Appointment Type Appointme nt Facility Name Jun 02, 2024 02:00 PM AMBULATORY - NONE [facility] Jun 14, 2024 03:00 PM AMBULATORY - NONE [facility] Jun 21, 2024 03:00 PM AMBULATORY - MEDICINE [facility] Jun 28, 2024 03:00 PM AMBULATORY - MEDICINE [facility] Jul 21, 2024 11:00 AM AMBULATORY - NONE [facility] Aug 06, 2024 02:00 PM AM[facility]ORY - [place] [facility] [facility] [place] [facility] Advance Directives: All historical and current Section Date Range: From patient's date of to the date document was created. This section includes ALL of a patient's completed or amended [place] Advance and Rescinded Directives. The entries below indicate that a directive exists for the patient, but an actual copy is not included with this document. The data comes from all [place] facilities. Date Advance Directives Provider Source Jul 13, 2021 ADVANCE DIRECTIVE DISCUSSION KATHIA SEO [facility] Sep 25, 2005 ADVANCE DIRECTIVE MIKEY OSORIO [facility] Encounter Notes: All associated encounter notes This section contains the clinical notes associated to the Encounter. Date/Time Encounter Note(s) Provider Source Feb 19, 2024 02:31 PM OPTOMETRY NOTE: LOCAL TITLE: [facility] EYEGLASS PRESCRIPTION STANDARD TITLE: OPTOMETRY NOTE DATE OF NOTE: FEB 19, 2024@14:31 ENTRY DATE: FEB 19, 2024@14:32:02 AUTHOR: OCTAVIO NOLASCO EXP COSIGNER: URGENCY: STATUS: COMPLETED [address] [place] [address] New order EYEGLASS RX: OD: +0.25 -1.75 x 105 OS: +0.50 -1.75 x 085 ADD: +2.50 Lens Material: Polycarb Lens Style: Bifocal: FT 28 Rx expires 2 years from date of provider signature. Transitions (PCIOL) /xena/ OCTAVIO NOLASCO CAD MANAGER Signed: 02/19/2024 14:33 OCTAVIO NOLASCO [facility] Feb 19, 2024 10:31 AM SURGERY NOTE: LOCAL TITLE: SURGERY/OPTOMETRY CLINIC STANDARD TITLE: SURGERY NOTE DATE OF NOTE: FEB 19, 2024@10:31 ENTRY DATE: FEB 19, 2024@10:31:48 AUTHOR: OCTAVIO NOLASCO COSIGNER: URGENCY: STATUS: COMPLETED SUBJECTIVE: PT IDENTIFIED X 2 __EST _x_NEW (2015) __CONSULT Room #: 306 REASON FOR VISIT/CHIEF COMPLAINT: [facility]. Pt reports that he had an eye exam at a civilian doctor but he doesn't remember how long ago it was. Pt reports that vision at distance he can see really well, but reports that computer distance is difficult. Pt reports that he doesn't have problems with physical papers and reading things. Pt reports that his computer is on a 60 screen, and after watching it for too long, his vision gets blurry. Pt reports that this happens after being on the computer for a couple hours straight, pt reports that he can glance out the window that's near the computer to look at various birds that may come in front. Pt reports that he rarely takes breaks when on computer. No eye meds OU. (-)pain, discomfort, burning, itching, tearing, flashes and floaters Diabetic Eye Exam: DM2_x_/DM1__ Diagnosed: Treatment: __diet _x_orals __insulin __injectable Last BS reading: doesn't check @ home HGB A1C:6.7 % H (12/17/2023 14:10) OHX: -inj, -glauc, -amd +surg/CE/PCIOL OU +DM s Ret +BRVO OS +PVD OU +Glc Suspect OU? - 2018 outside [facility] FOHX: +glauc/brother, -amd, +blindness/brother Last Exam: 2016 Last DFE: 2016 Refraction: 2016 Ocular Meds: None Review of Systems/Medical Hx: x indicates positive response; no x indicates negative response Constitutional (__fever,__fatigue,__weight loss/gain) x Eye (see above) x GI (__Crohn's,_x_GERD,__polyp) x Cardio (_x_HTN,_x_CAD,_x_HL,_x_Afi b,_x_CHF,__PVD,__MI,__Pacem randi) x Respiratory (_x_COPD,__asthma,_x_OSA,__ nodule); CPAP __yes __no Neuro (__CVA,__Parkinson's,__MG,_ _dementia,__TBI) x Heme/Lymphatic (_x_anemia,__cancer) x Endocrine (_x_DM,__thyroid) Allergic/Immune (__hayfever,__arthritis,__l upus) Skin (__psoriasis,__skin CA,__eczema,__rosacea) x Genitourinary (_x_kidney,_x_prostate) Psychiatric (__PTSD,__Depression,__Anxi ety) Other: Social Hx: Current Smoker __yes/PPD __no/Quit (year) Blood Pressure: 113/71 (12/24/2023 13:51) BMI: BMI: - NO HEIGHTS FOUND Allergies/ADR: Patient has answered NKA Active medication list has been reviewed/updated OBJECTIVE: Alert & Oriented x 4 Distance Visual Acuity cRx OD: 20/25 +2 OS: 20/25 -1 Hab Rx: unsure (outside issued) OD: +0.25 -1.75 x 105 OS: Snyder -1.50 x 085 Add: +2.50 Style: FT28 Refraction: OD: +0.25 -1.75 x 105 20/15 -1 OS: +0.50 -1.75 x 085 20/20 ADD: +2.50 (20/20 @ 16 ) Plastic/FT28/Tint/Transitio ns(PCIOL) Extra-Ocular Muscles: FROM both eyes Confrontational Field: FTFC each eye Pupils: ERRL OU, no apd OU IOP (mmHg): OD 14 OS 16 @ 1410 _x_Goldmann __Tonopen __iCare Verbal consent obtained for tonometry/dilation. Advised patient on side effects. Instilled FLURESS/1% TROPICAMIDE i gtt OU @ 1410 Angles checked by slit lamp prior to dilation: 4/4 OU SLIT LAMP EVALUATION: Lids and Lashes: Clear OD; Cyst nasal LL Conj: Pinguecula T OU Cornea: Clear OU; mildly reduced tear hatfield OS>OD Iris: Clear OU, no NVI OU A/C: D/Q OU Angles: 4/4 OU Lens: PCIOL OU DILATED FUNDUS EXAMINATION: Vitreous: PVD OU C/D: 0.25 OD and 0.35 OS Assessment: _x_Stable __Unstable Rim: Merna and healthy OU, (-)NVD OU Macula: Flat/even OU, no CSME OU Posterior Pole: clear OU, (-)macular thickening/GA/heme OU Vessels: normal caliber and appearance OD; attenuation, old hemes ST OS, (-)NVE OU Periphery: OD: Flat 360, no apparent holes/tears OS: Flat 360, no apparent holes/tears OTHER TESTING: RNFL OCT OD: ; no thinning 360 compared to age-matched normals; baseline OS: ; thinning ST; borderline thinning T/IT consistent with h/o BRVO ST, baseline POST POLE OCT: OD: CMT: 278; +Foveal contour/normal retinal architecture. STABLE (-)IRF/SRF/CNVM/GA/HEME OS: CMT: 281; +Foveal contour/normal retinal architecture. STABLE (-)IRF/SRF/CNVM/GA/HEME ASSESSMENT/PLAN: 1. 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 Continue to maintain good blood glucose levels to prevent ocular changes and potential vision loss. Continue all follow-up care with PCP regularly. Continue to monitor in 1 year with DFE or sooner PRN. 2. Posterior Vitreous Degeneration, Bilateral Patient educated on condition. Discussed large mass of clearish floaters/film that moves across the vision as a result of liquification of vitreous OU. The reason Pt notices this more while driving is due to the light coming in the windshield casting shadows on retinas. When Pt shakes his head, the vitreous shifts out of the way and clears vision. No intervention is indicated at this time unless Pt becomes very bothered, at which time we could consider referral to vitreoretinal surgeon for vitrectomy. Continue to monitor with annual DFE or sooner PRN. 3. Branch Retinal Vein Occlusion, Left Eye Condition is longstanding and stable with residual vessel attenuation and old hemes. RNFL OCT OS shows thinning S/T/IT, which is consistent with ST location of BRVO. Educated Pt on stability of condition. Continue to monitor with annual DFE or sooner PRN. 4. Presence of Intraocular Lens, Bilateral PCIOLs are well-positioned and clear. Educated Pt that cataracts cannot return after they have been removed. No intervention is indicated. Pt educated/expressed understanding. Continue to monitor with annual DFE or sooner PRN. 5. Presbyopia, Bilateral Patient educated on updated Rx found today. Updated SRx finalized and released as Plastic/FT28/Tint/Transitio ns(PCIOL) for FTW. (Trying tint to help with disturbance with headlights with night driving.) Pt educated/expressed understanding. Monitor with CEE in 1 year or sooner PRN. RTC: 1 year DFE/MAC OCT/RNFL OCT to monitor h/o BRVO OS or sooner PRN TIME: 40 minutes spent reviewing, documenting, examining and education. This time does not include additional testing. MEDICATION RECONCILIATION WAS DONE If medications were added, changed, discontinued or used on a temporary basis during this episode of care, they were evaluated for conflicts with other medications. The patient was made aware of any change in his/her medications and has been educated on the use of this product. Warnings related to adverse effects and reasons for this change in his/her medications were also discussed. Patient: GAYLE ZARATE (: 1945) A list of reconciled medications was provided to the Martha/caregiver. The following medication list was reviewed with the patient/caregiver: The /caregiver was counseled on new medications and/or medication changes. Potential risks, benefits, and alternative to medications prescribed were discussed with /caregiver who was given an opportunity to ask questions, which were answered to the best of my ability and seemingly to their satisfaction. /caregiver was/were instructed to contact provider (means provided) with any concerns or questions. INCLUDED IN THIS LIST: Alphabetical list of active outpatient prescriptions dispensed from this [facility] (local) and dispensed from another VA or DoD facility (remote) as well as inpatient orders (local pending and active), local clinic medications, locally documented non-VA medications, and local prescriptions that have or been discontinued in the past 90 days. NOTE The display of VA prescriptions dispensed from another VA or DoD facility (remote) is limited to active outpatient prescription entries matched to National Drug File at the originating site and may not include some items such as investigational drugs, compounds, etc. NOT INCLUDED IN THIS LIST: Medications self-entered by the patient into personal health records (i.e. Adynxx) are not included in this list. Non-VA medications documented outside this [place], remote inpatient orders (regardless of status) and remote clinic medications are NOT included in this list. The patient and provider must always discuss medications the patient is taking, regardless of where the medication was dispensed or obtained. Patient safety alert: Medications and allergies from [facility] facilities may be incomplete. Reference [facility] for full list. --- Allergies/ADRs --- Local Allergies: No known food or drug allergies Remote Allergies: LISINOPRIL ( DROWSY, HYPOTENSION, ITCHING OF EYE, ANXIETY), NIASPAN 500MG ER TABLET (FLUSHING), PNEUMOVAX 23 (SWELLING (NON-SPECIFIC)) - Med Reconciliation - Patient is taking the following medications: ALBUTEROL 90MCG (CFC-F) 200D ORAL INHL INH 2 puffs PO four times a day PRN Usually Taken for: Breathing APIXABAN 5MG TAB take one tablet PO BID blood thinner Usually Taken for: Blood thinner FLUTICAS 100/SALMETEROL 50 INHL DISK 60 INH 1 puff PO BID Usually Taken for: Breathing FUROSEMIDE 40MG TAB take one tablet PO daily Usually Taken for: Blood pressure/Water pill GABAPENTIN 600MG TAB take one tablet PO BID Usually Taken for: Pain/Neuropathy METFORMIN HCL 1000MG TAB take one tablet PO BID before morning & evening meal WM - Usually Taken for: Diabetes METOPROLOL SUCCINATE 25MG SA TAB take one-half tablet PO QAM Usually Taken for: Blood pressure/Heart VEMFY-0-DWSM ETHYL ESTERS CAP,ORAL 1000mg PO daily Usually Taken for: Supplement OMEPRAZOLE 20MG EC CAP take two capsules PO QAM 30 minutes ACB Usually Taken for: Stomach ROFLUMILAST 500MCG TAB take one tablet PO DAILY Usually Taken for: Breathing SACUBITRIL 49MG/VALSARTAN 51MG TAB take 1 tablet PO BID Usually Taken for: Blood pressure/Heart failure SIMVASTATIN 40MG TAB take one tablet PO at Q BEDTIME avoid grapefruit call your provider if you have muscle pain, tenderness or weakness - Usually Taken for: Cholesterol SOTALOL HCL 120MG TAB take one tablet PO BID Usually Taken for: Heart SPIRONOLACTONE 25MG TAB take one-half tablet PO daily Usually Taken for: Blood pressure/Water pill TIOTROPIUM 18MCG INHL CAP (30 CAPS/BOX) INH contents of one capsule by INHr PO DAILY Usually Taken for: Breathing TIOTROPIUM 2.5MCG/ACTUAT 60D ORAL INHL INH two inhalations PO DAILY max of two inhalations in 24 hours. Usually Taken for: Breathing EVERY ONCE IN A WHILE THEY'LL CHANGE MY PRESCRIPTIONS AND THE BRANDS - UNSURE WHICH ONE BECAUSE I TAKE LIKE 15 A DAY /xena/ OCTAVIO NOLASCO CAD MANAGER Signed: 02/19/2024 15:03 OCTAVIO NOLASCO [facility]
--- OUTSIDE RECORDS SUMMARY | 2024-10-30 08:54 | XMS_ITS | Encounter Summary ---
Author Organization [facility] Address formerly [facility] [place] [address] Care Team Providers Care Environmental Science Instructor Name Role Phone Tita Mccain APRN, NP-C Unavailable Dorian Christy MD Unavailable [phone] Dangelo Adames MD Primary Care Provider [phone] Yanick Jackson MD Unavailable [phone] Gokul Mayorga MD Unavailable [phone] Chante Lucas MD Unavailable [phone] Teri Jerome PA-C Unavailable [phone] Encounter Details Date Type Department Care Team (Late st Contact Info) Description 07/12/2022 Hospital Orders Only [place] [employer] [facility] [address] [place] [address] Gokul Mayorga MD [address] [place] [address] Social History Tobacco Use Types Packs/Day Years Used Date Smoking Tobacco: Former Cigarettes 1 50 1 954 - 2004 Smokeless Tobacco: Never Alcohol Use Standard Drinks/Week Comments No 0 (1 standard drink = 0.6 oz pur e alcohol) Sex and Gender Information Value Date Recorded Sex Assigned at Male 08/09/2024 3:31 PM MANAGER NUCLEAR Legal Sex Male 11:57 PM CDT Gender Identity Male 06/14/2019 10:46 AM MANAGER NUCLEAR Sexual Orientation Not on file Occupation Industry Job Start Date Job End Date Not on file Not on file Not on file Not on file COVID-19 Exposure Response Date Recorded In the last 10 days, have sandra larkin been in contact with someone who was confirmed or suspected to have Coronavirus/COVID-19? No / Unsure 06/12/2022 9:23 AM MANAGER NUCLEAR documented as of this encounter Functional Status * RETIRED Are you deaf or do you have serious difficulty hearing Answer Date of Assessment Author Status Yes 12/12/2021 6:54 PM CDT Activ e * RETIRED Are you blind or do you have serious difficulty seeing, even when wearing glasses? Answer Date of Assessment Author Status No 12/12/2021 6:54 PM CDT Activ e * Do you have serious difficulty walking or climbing stairs? Answer Date of Assessment Author Status No 12/12/2021 6:54 PM CDT Elissa Taylor RN Active * Do you have difficulty dressing or bathing? Answer Date of Assessment Author Status No 12/12/2021 6:54 PM CDT Elissa Taylor RN Active * Because of a physical, mental, or emotional condition, do you have difficulty doing errands alone such as visiting a doctor's office or shopping? Answer Date of Assessment Author Status No 12/12/2021 6:54 PM LESLIET Elissa Taylor RN Active documented as of this encounter Mental Status * Because of a physical, mental, or emotional condition, do you have serious difficulty concentrating, remembering, or making decisions? Answer Entry Date Author Status No 12/12/2021 6:54 PM CDElissa Samson RN Active documented in this encounter Plan of Treatment Not on file documented as of this encounter Visit Diagnoses Not on filedocumented in this encounter Additional Health Concerns Infection Onset Date Last Indicated Resolved Time COVID-19 Rule Out 08/09/2024 08/09/2024 08/09/2024 4:36 PM MANAGER NUCLEAR documented as of this encounter Care Teams Environmental Science Instructor Relationship Specialty Start Date End Date Dangelo Adames MD [address] [address] PCP - General INTERNAL MEDICINE 10/24/17 Tita Mccain APRN, STUBBER-C [address] [place] [address] [address] [place] [phone] NURSE PRACTITIONER 05/30/17 01/26/24 Dorian Christy MD [address] [place] [phone] CARDIOVASCULAR DISEASE 06/30/17 4 Yanick Jackson MD [address] [place] [id number] PULMONARY DISEASE 10/28/17 Gokul Mayorga MD [address] [place] [address] EP Neurodiagnostic Technologist CLINICAL CARDIAC ELECTROPHYSIOLOGY 08/27/21 Chante Lucas MD [address] [place] [address] [id number] INTERVENTIONAL CARDIOLOGY 11/20/2310/18 Teri Jerome PA-C [address] [place] [address] Referring Physician PHYSICIAN CLEANER AND DYER 10/17/24 documented as of this encounter
--- OUTSIDE RECORDS SUMMARY | 2024-10-30 08:54 | XMS_ITS | Data Portability ---
Author Organization [facility], [address] [place] [address] ([place]) Address [address] [address] Care Team Providers Care Tie Up Worker Name Role Phone JENNIFER GARCIA Referring Provider YANICK COLEMAN Refrigerator Tester Assessment Encounter Date Assessment Date Assessment LastModified by Organization Details LastModified Time 03/25/2024 03/25/2024 RESULTS/DATA: Spirometry shows severe obstruction. IMPRESSION AND PLAN: The patient was advised to see his primary care doctor for the atypical chest pain and appropriate workup. Continue Spiriva 1 q. day. Continue Daliresp 500 mcg p.o. q. day. Continue Spiriva 1 q. day. Continue Advair 100/50 one b.i.d. Continue albuterol as rescue therapy. [facility] He did mention he is not interested in future COVID vaccines. If all is well, I will see him in six months. The agenda will include a simple spirometry and 6-minute walk. [email or web address] Not available 03/25/2024 16:35:18 09/27/2024 09/27/2024 RESULTS/DATA: Room air saturation 96%. He could only walk for 78 meters. It was 96% at the end. Spirometry shows severe obstruction. ASSESSMENT AND PLAN: Continue Spiriva Respimat 2.5 mcg 2 q. a.m.. Continue fluticasone/sa lmeterol 100/50 one b.i.d.. Continue Daliresp 500 mcg p.o. q. day. Continue albuterol for rescue therapy. I will see him back in 9 months. The agenda will include a simple spirometry and 6-minute walk. [email or web address] Not available 09/27/2024 16:44:07 Plan of Treatment Reminders Order Date Submit Date Provider Last Modified By Organization Details Last Modified Time Details Appointments [place] w Exercise Oximetry .PRO 2025 02:00P M [facility] Not available Not available Not available Maria Luisa hed Patient 15.EST 2025 02:30P M Dr. Yanick Coleman Not available Not available Not available Lab None recorded . Referral None recorded . Procedures None recorded . Surgeries None recorded . Imaging None recorded . Medication Orders None recorded . Patient TargetsNo targets recorded. Patient Instructions Encounter Date Encounter Id Patient Instructions Last Modified By Organization Details Last Modified Time 03/25/2024 [id number] At the moment, I think his COPD is stable. I am not sure what to make of his atypical chest pain that I described in the History of Present Illness. I did tell the patient that COPD should not cause chest pain. Therefore, we are in search of another diagnosis. Furthermore, based upon my evaluations, he has never met the criteria to prescribe supplemental oxygen. I told him I could not condone him using oxygen at this time. [email or web address] Not available 03/25/2024 16:35:04 Reason for Referral None Reported. Results Created Date Observation Date Name Description Value Unit Range Abnormal Flag Note LastModifiedBy Organization Detail LastModifiedTime 01/28/20 24 01/30/2024 C SPUTU M sputum culture with gram stain (new) abnormal Print Date/ Time: 2023 14:39 CDT Patie n MENDOZA Y, GAYLE F t: Micro biolo gy - Respi rator y Legen d: c=Cor recte d, F=Res ult Comme nt, S=Amanda cepti ble, I=Int ermed iate, R=Res istan t, N/A=N ot Appli cable PROCE DURE: Sputu m Cultu re with Gram ACCES JOLLY: 7 134 Stain [] SOURC E: Sputu m BODY SITE: COLLE CTED DATE/ TIME: 2023 10:30 CDT RECEI RAYSA DATE/ TIME: 2023 19:53 CDT START DATE/ TIME: 2023 19:53 CDT FREE TEXT SOURC E: AM ENDED REPOR TS Amend ed Repor t [] Verif ied Date/ Time: 2023 14:39 CDT This cultu re was origi greg rejec kyle based on Gram stain crite iesha. Howev er, upon subcu lture , furth er work- up was indic ated. Alena l oral zonia and Moder ate Haemo philu s influ enzae Beta lacta isabel posit woody Routi ne susce ptibi lity testi ng is not done. The antim icrob ial agent of choic e for Haemo philu s influ enzae is cefot axime /ceft riaxo ne for life- threa tenin g illne ss; for non-l olivia-t hreat ening illne ss, these agent s may be used: 2nd and 3rd gener ation oral cepha lospo rins, amoxi cilli n-cla vulan ate and azith romyc in. Ampic illin may be used if isola te is Beta Lacta isabel negat woody. (Sanf ord et al 2014) FI NAL REPOR TS Final Repor t [] Verif ied Date/ Time: 2023 22:28 CDT Speci men label ed Sput um rejec kyle. Evalu ation based on prese nce of squam ous epith elial cells indic ates that this does not repre sent deep respi rator y secre tions . ST AINS/ PREPA RATIO NS GS [] Verif ied Date/ Time: 2023 22:27 CDT >10 epith elial cells /lpf <10 Neutr ophil s/lpf Many (>30/ hpf) Gram Negat woody Rods and Bacte iesha consi stent with alena l oral zonia obser raysa. Not Available De Only - [facility] [address], [place], [address], 01/30/2024 15:39:35 01/28/20 24 01/28/2024 C SPUTU M sputum culture with gram stain (new) abnormal Print Date/ Time: 2023 22:28 CDT Parmjit n MENDOZA YGAYLE t: Micro biolo gy - Respi rator y Legen d: c=Cor recte d, F=Res ult Comme nt, S=Amanda cepti ble, I=Int ermed iate, R=Res istan t, N/A=N ot Appli cable PROCE DURE: Sputu m Cultu re with Gram ACCES JOLLY: 134 Stain [] SOURC E: Sputu m BODY SITE: COLLE CTED DATE/ TIME: 2023 10:30 CDT RECEI RAYSA DATE/ TIME: 2023 19:53 CDT START DATE/ TIME: 2023 19:53 CDT FREE TEXT SOURC E: FI NAL REPOR TS Final Repor t [] Verif ied Date/ Time: 2023 22:28 CDT Speci men label ed Sput um rejec kyle. Evalu ation based on prese nce of squam ous epith elial cells indic ates that this does not repre sent deep respi rator y secre tions . ST AINS/ PREPA RATIO NS GS [] Verif ied Date/ Time: 2023 22:27 CDT >10 epith elial cells /lpf <10 Neutr ophil s/lpf Many (>30/ hpf) Gram Negat woody Rods and Bacte iesha consi stent with alena l oral zonia obser raysa. Not Available De Only - [facility] [address] [facility], [place], [address], 01/28/2024 23:28:48 01/28/20 24 01/28/2024 C SPUTU M sputum culture with gram stain (new) abnormal Print Date/ Time: 2023 22:27 CDT Patie n MENDOZA GAYLE Kahn t: Micro biolo gy - Respi rator y Legen d: c=Cor recte d, F=Res ult Comme nt, S=Amanda cepti ble, I=Int ermed iate, R=Res istan t, N/A=N ot Appli cable PROCE DURE: Sputu m Cultu re with Gram ACCES JOLLY: 24-22 7-006 134 Stain [] SOURC E: Sputu m BODY SITE: COLLE CTED DATE/ TIME: 2023 10:30 CDT RECEI RAYSA DATE/ TIME: 2023 19:53 CDT START DATE/ TIME: 2023 19:53 CDT FREE TEXT SOURC E: ST AINS/ PREPA RATIO NS GS [] Verif ied Date/ Time: 2023 22:27 CDT >10 epith elial cells /lpf <10 Neutr ophil s/lpf Many (>30/ hpf) Gram Negat woody Rods and Bacte iesha consi stent with alena l oral zonia obser raysa. Not Available De Only - [facility] [address] [place], [address], 01/28/2024 23:27:51 01/23/20 24 01/23/2024 XR, chest , 2 view [facility] [address] [place] [address] Teleph one [phone] Name: Gayle Sandra [id number] Exam Date: 2023 Age: 78 Physic eloisa: MD Renetta, Angelo varma : 1945 Examin ation: XR CHEST 2 VIEWS EXAMIN ATION: Chest 2 views HISTOR Y: COPD issues for years, no other chest compla ints.. FINDIN GS: Compar chato made 2023. Linear scarri ng in the left lung base is unchan ged. There is no new consol idatio n, pleura l effusi on, pneumo thorax . Heart size is unchan ged. IMPRES JOLLY: No acute cardio pulmon shari proces s seen Electr onical ly signed in Gomez cribe by: EDGARDO Orona on:01/22 3:02 PM cc: Page PAGE 1 of NUMPAG ES 1 [email or web address] Sc Only - [facility] [address] [place], [address], 01/23/2024 17:58:55 01/23/20 24 01/23/2024 PFT No observ ation record ed. INTERFACE De Only - [facility] [address] [place] [address], [address], 01/23/2024 17:33:38 01/26/20 24 01/23/2024 6 minut e walk test* No observ ation record ed. BARCODE Not Available 2023 17:33:07 01/28/20 24 08/03/2022 imagi ng/di agnos tic resul t No observ ation record ed. Not Available 01/28/2024 22:07:49 01/28/20 24 08/08/2022 imagi ng/di agnos tic resul t No observ ation record ed. Not Available 01/28/2024 22:07:54 01/28/20 24 08/08/2022 imagi ng/di agnos tic resul t No observ ation record ed. Not Available 01/28/2024 22:07:56 03/25/20 24 03/25/2024 PFT No observ ation record ed. INTERFACE De Only - [facility] [address] [place], [address], 03/25/2024 17:32:31 04/12/20 24 07/21/2023 imagi ng/di agnos tic resul t No observ ation record ed. [email or web address] Not Available 05:09:32 04/12/20 24 07/25/2023 imagi ng/di agnos tic resul t No observ ation record ed. [email or web address] Not Available 05:09:35 09/28/19 25 09/27/2024 PFT No observ ation record ed. [email or web address] De Only - [facility] [address] , [place], [address], 09/27/2024 17:35:13 09/30/19 25 09/28/2024 6 minut e walk test* No observ ation record ed. BARCODE Not Available 2024 14:12:41 Result Notes None recorded. Problems Name Problem SNOMED Code Status Onset Date Resolution Date Notes Provider Name and Address Organization Details Recorded Time Chronic obstructive pulmonary disease 08387852 Active 2023 Jaki Marley [facility] 4 14:25:47 Obstructive sleep apnea of adult 2501460805082 Active 2023 Yanick Coleman MD [address] [place] [address], [phone], [facility] 4 15:27:14 Bronchitis 79904347 Active 2023 Isabell Armstrong [facility] 4 16:23:11 Atypical chest pain 893334540 Active 2023 Yanick Coleman MD [address] [place] [address], [phone], [facility] 4 16:09:37 Problem Notes None recorded. Procedures Surgical History Date Name Laterality Status Provider Name and Address Organization Details Recorded Time Prq card stent w/angio 1 vsl completed Not Available Health Note 01/16/2024 15:25:15 Colonoscopy with biopsy completed Not Available Health Note 01/16/2024 15:25:15 Removal of gallbladder completed Not Available Health Note 01/16/2024 15:25:15 Imaging Results Imaging Date Name Status LastModified by Organiz ation Details LastModified Time 01/23/2024 XR, chest, 2 view completed [email or web address] De Only - [facility] [address] [place] [address], [address], 01/23/2024 17:58:55 01/23/2024 PFT completed INTERFACE Sc Only - [facility] [address] [place] [address], [address], 01/23/2024 17:33:38 01/23/2024 6 minute walk test* completed BARCODE Information not available 01/26/2024 17:33:07 08/03/2022 imaging/diag nostic result completed Information not available 01/28/2024 22:07:49 08/08/2022 imaging/diag nostic result completed Information not available 01/28/2024 22:07:54 08/08/2022 imaging/diag nostic result completed Information not available 01/28/2024 22:07:56 03/25/2024 PFT completed INTERFACE De Only - [facility] [address] [place], [address], 03/25/2024 17:32:31 07/21/2023 imaging/diag nostic result completed Information not available 04/12/2024 05:09:32 07/25/2023 imaging/diag nostic result completed Information not available 04/12/2024 05:09:35 09/27/2024 PFT completed [email or web address] De Only - [facility] [address] [place] [address], [address], 09/27/2024 17:35:13 09/28/2024 6 minute walk test* completed BARCODE Information not available 09/29/2024 14:12:41 Procedure Notes None recorded. Medical Equipment None Reported. Allergies Allergen ID Allergen Name Allergen Category Reaction Reaction Severity Criticality Documentation Date Start Date Code Code System Note Provider Name and Address Organization Details Recorded Time 669615 lisinopri l medicatio n Not available Not available Not available 07/14/20232018 64387 RxNorm Comme nt: Annot ation s: WALKER (EXT) , KAPRI A 26Sep 2018 11:41 AM COUGH ; ; Not Available [facility] 22:36:56 Medications Name Sig Start Date Stop Date Status Note LastModified by Organization Details LastModified Time furosemid e 40 mg tablet Take 1 tablet every day by oral route. active Not Available Not Available No t Available doxycycli ne hyclate 100 mg capsule TAKE 1 CAPSULE BY MOUTH TWICE DAILY FOR 10 DAYS 03/25 completed Not Available Not Available Not Available albuterol sulfate 1.25 mg/3 mL solution for nebulizat ion Inhale 3 mL every 6 hours by inhalati on route as needed. active Not Available Not Available No t Available prednison e 20 mg tablet TAKE 2 TABLETS BY MOUTH ONCE DAILY FOR 4 DAYS 09/27 completed Not Available Not Available Not Available sotalol 120 mg tablet TAKE 1 TABLET BY MOUTH TWICE DAILY active Not Available Not Available No t Available spironola ctone 25 mg tablet Take 0.5 tablets every day by oral route. active Not Available Not Available No t Available simvastat in 40 mg tablet Take 1 tablet twice a day by oral route. active Not Available Not Available No t Available metformin 1,000 mg tablet Take 1 tablet twice a day by oral route. active Not Available Not Available No t Available gabapenti n 300 mg capsule Take 2 capsules 3 times a day by oral route. active Not Available Not Available No t Available omeprazol e 20 mg capsule,d elayed release Take 2 capsules every day by oral route. active Not Available Not Available No t Available fluticaso ne 100 mcg-salme terol 50 mcg/dose blistr powdr for inhalatio n Inhale 1 puff twice a day by inhalati on route. active Not Available Not Available No t Available amoxicill in 875 mg-potass ium clavulana te 125 mg tablet TAKE 1 TABLET BY MOUTH EVERY 12 HOURS FOR 5 DAYS 03/25 completed Not Available Not Available Not Available oxycodone 5 mg tablet TAKE 1 TABLET BY MOUTH EVERY 4 HOURS NEEDED FOR PAIN active Not Available Not Available No t Available tiotropiu m bromide 18 mcg capsule with inhalatio n device Inhale 1 capsule every day by inhalati on route. 09/27 completed Spiriva Not Available Not Available Not Available [place] 3 active Not Available Not Avail able Not Available Daliresp 500 mcg tablet Take 1 tablet every day by oral route. 2023 active Patient taking rx and [facility] Not Available Not Available Not Available apixaban 5 mg tablet Take 1 tablet twice a day by oral route. active Not Available Not Available No t Available Spiriva Respimat 2.5 mcg/actua tion solution for inhalatio n Inhale 2 puffs every day by inhalati on route in the morning. active Not Available Not Available No t Available sacubitri l 49 mg-valsar parker 51 mg tablet Take 1 tablet every day by oral route in the evening. active Not Available Not Available No t Available metoprolo l succinate ER 25 mg capsule sprinkle, ext. release 24 hr Take 0.5 capsules every day by oral route in the morning. active Not Available Not Available No t Available albuterol sulf 90 mcg/actua tion breath activated powder inhaler,s ensor Inhale 2 puffs every 6 hours by inhalati on route as needed. active Not Available Not Available No t Available Vitals Date Recorded Body height Body mass index (BMI) Body weight Heart rate Oxygen saturation Oxygen saturation in Arterial blood by Pulse oximetry Systolic blood pressure Diastolic blood pressure Provider Name and Address Organization Details Last Updated DateTime 4 175.26 cm 27.8 kg/m2 98575.3 7 g 57 /min 94 % 94 % 110 mm[Hg] 69 mm[Hg] Nargis [facility] 4 14:35:34 Date Recorded Body height Body mass index (BMI) Body weight Heart rate Oxygen saturation Oxygen saturation in Arterial blood by Pulse oximetry Systolic blood pressure Diastolic blood pressure Provider Name and Address Organization Details Last Updated DateTime 4 175.26 cm 27 kg/m2 05368.4 g 70 /min 95 % 95 % 97 mm[Hg] 64 mm[Hg] aJda Sousa [facility] 4 15:51:07 Date Recorded Body height Body mass index (BMI) Body weight Heart rate Oxygen saturation Oxygen saturation in Arterial blood by Pulse oximetry Systolic blood pressure Diastolic blood pressure Provider Name and Address Organization Details Last Updated DateTime 5 175.26 cm 25.7 kg/m2 88260.0 7 g 68 /min 96 % 96 % 115 mm[Hg] 66 mm[Hg] Sofía Beltran [facility] 5 15:33:28 Social History Question Answer Notes LastModified by Organizat ion Details LastModified Time Tobacco Smoking Status Former Smoker Jada Sousa [facility] 03/25/2024 15:56:52 Do You Have An Advance Directive? No [email or web address] Information not available 01/16/2024 What Is Your Level Of Caffeine Consumption? Moderate [email or web address] Information not available 01/16/2024 How Many Times Per Week Do You Exercise? Less Than 1 Time Per Week [email or web address] Information not available 01/16/2024 How Many Packs Per Day (PPD)? 1 Information not available 03/25/2024 How Long Have You Smoked? 50 Information not available 03/25/2024 When Did You Quit Smoking? 1998 Information not available 03/25/2024 Do You Have A Medical Power Of Safemaker? No [email or web address] Information not available 01/16/2024 What Was The Date Of Your Most Recent Tobacco Screening? 01/23/2024 [email or web address] Information not available 01/16/2024 What Is Your Relationship Status? [email or web address] Information not available 01/16/2024 Sex: Unknown Functional Status Question Answer Note LastModified by Organizat ion Details LastModified Time Do you use any illicit or recreational drugs? No [email or web address] Information not available 01/16/2024 What is your level of alcohol consumption? None [email or web address] Information not available 01/16/2024 Are you currently employed? No [email or web address] Information not available 01/16/2024 What is your occupation? Retired [email or web address] Information not available 01/16/2024 What is your exercise level? None [email or web address] Information not available 01/16/2024 Mental Status None recorded. Family History Relationship Description Onset Age of this Age Resolved Age Notes LastModified by Organization Details LastModified Time Sister Asthma [email or web address] Not available 15:25:14 Sister Family history of malignant neoplasm [email or web address] Not available 2023 15:25:14 Brother Family history of malignant neoplasm [email or web address] Not available 2023 15:25:14 Medical History Condition Response Anxiety Disorder N Diabetes Y Bleeding Disorder N Attention-deficit Hyperactivity Disorder N High Blood Pressure Y Arthritis Y Hyperlipidemia N Cancer N Thyroid Problems N Stroke N COPD Y Depression N Asthma N Seizures N Anemia N Heart Disease Y Fibromyalgia N Osteoporosis N Kidney Disease N Immunizations Vaccine Type Date Status Note Provider Nam e and Address Organization Details Recorded Time Influenza, split virus, quadrivalent, preservative 7 completed Jada Sousa [facility] 03/25/2024 15:51:16 zoster recombinant 03/14/202 3 completed Jada Skillett null, [facility] 03/25/2024 15:51:16 zoster recombinant 3 completed Jada Skillett null, [facility] 03/25/2024 15:51:16 Influenza, high-dose, quadrivalent, PF 4 completed Jada Skillett null, [facility] 03/25/2024 15:51:16 Influenza, adjuvanted, quadrivalent, PF 2 completed Jada Skillett null, [facility] 03/25/2024 15:51:16 COVID-19, mRNA, LNP-S, PF, 100 mcg/0.5mL dose or 50 mcg/0.25mL dose 1 completed Jada Skillett null, [facility] 03/25/2024 15:51:16 COVID-19, mRNA, LNP-S, PF, 100 mcg/0.5mL dose or 50 mcg/0.25mL dose 1 completed Jada Skillett null, [facility] 03/25/2024 15:51:16 Pneumococcal conjugate PCV20, polysaccharide [id number] conjugate, adjuvant, PF 3 completed Jada Skillett null, [facility] 03/25/2024 15:51:16 Tdap 4 completed Jada Skillett null, [facility] 03/25/2024 15:51:16 Influenza, split virus, trivalent, preservative 4 completed Jada Skillett null, [facility] 03/25/2024 15:51:16 Influenza, split virus, quadrivalent, PF 5 completed Jada Skillett null, [facility] 03/25/2024 15:51:16 Past Encounters Encounter ID Performer Location Encounter Start Date Encounter Closed Date Diagnosis/Indication Diagnosis SNOMED-CT Code Diagnosis ICD10 Code Diagnosis Note [id number] Yanick Coleman MD [address] [place] [phone] 01/23/2024 14:01:36 01/23/2024 14:27:55 Chronic obstructive pulmonary disease 45481954 J44.9 [id number] Yanick Coleman MD [address] [place] ([place]) [address] [facility],[address] [place] [address], [place] [address] 01/23/2024 14:06:39 01/23/2024 17:00:13 Chronic obstructive pulmonary disease 20885097 J44.9 Obstructiv e sleep apnea of adult 3248369299 103 G47.33 Uses home continuous positive airway pressure ventilation supply 5019174996 103 Z99.11 [id number] Yanick Coleman MD [facility] [address] [facility] [address] [place] [address], [place] [address] 03/25/2024 15:21:59 03/25/2024 15:38:35 Chronic obstructive pulmonary disease 46004177 J44.9 [id number] Yanick Coleman MD [address] [place] ([place]) [address] [facility],[address] [place] [address], [place] [address] 03/25/2024 15:26:04 03/25/2024 16:10:53 Chronic obstructive pulmonary disease 91855854 J44.9 Atypical chest pain 1025 [address] R07.89 [id number] Yanick Coleman MD [address] [place] [address], [place] [address] 09/27/2024 15:01:00 09/27/2024 17:42:54 Chronic obstructive pulmonary disease 43814719 J44.9 [id number] Yanick Coleman MD [address] [place] ([place]) [address] [facility],[address] [place] [phone] 09/27/2024 15:01:22 09/27/2024 17:38:23 Chronic obstructive pulmonary disease 24890625 J44.9 Health Concerns Section Related Observation LastModified by Organization Detai ls LastModified Time None Recorded Concern Status LastModified by Organization Details LastModified Time None Recorded Advance Directives Directive N: Payers Insurance Date Sequence Insurance Name Policy Number Policy Biggs Covered Member ID Biggs Member ID Guarantor Name 03/25/2024 [employer] (MEDICARE REPLACEMENT/A DVANTAGE - PPO) [id number] Gayle Sandra [id number] Gayle Sandra 09/28/2024 [employer] [facility] [place] [facility] Gayle Sandra [id number] Gayle Sandra 02/03/2024 1 [employer] (PPO) [id number] Gayle Sandra [id number] Gayle Sandra 01/23/2024 2 [place] Gayle Sandra [id number] Gayle Sandra 03/25/2024 1 [employer] (PPO) [id number] Gayle Sandra [id number] Gayle Sandra 09/22/2024 1 [facility] (MEDICARE REPLACEMENT/A DVANTAGE - PPO) [id number] Gayle Sandra [id number] Gayle Sandra Notes Date Note Type Note Provider Name and Address Organization Details Recorded Time 01/23/2024 text/html CHIEF COMPLAINT:Obstructi ve sleep apnea, COPD. HISTORY OF PRESENT ILLNESS:The patient returns today accompanied by his . Since I last saw him, he has been using and benefiting from his CPAP. He is wearing a full face mask. He does not wake up snorting or gasping for breath at night. Quality of sleep seems good. He has gotten drowsy while driving. We discussed this. He needs to avoid this. I told him if he feels he might be at risk of getting drowsy, to not drive. He is continuing to have some daily respiratory symptoms. He has a chronic daily cough. He brings up yellowish mucus. He sometimes hears a rattle in his chest. He has chronic shortness of breath with exertion. Nothing acute. He denied fevers, chills, or sweats. He had an antibiotic in December and it did not help any of the above symptoms. He is using his nebulizer about every 4 hours while awake. He is tolerating the Spiriva and Advair without any side effects. He denied acid reflux. Yanick Coleman MD [address] [facility], [place], [address], [facility] 01/23/2024 16:35:02 03/25/2024 text/html CHIEF COMPLAINT:COPD. HISTORY OF PRESENT ILLNESS:The patient returns today accompanied by his . At the last visit, it was felt that his COPD was not at baseline. He was prescribed Daliresp. His sputum culture grew Haemophilus influenzae and he was given antibiotics. The patient returns today to tell me he is doing significantly better. The cough is gone. His chest is no longer congested. No wheezing. He has chronic shortness of breath, worse with exertion, relieved with rest. He is tolerating his maintenance medication without any side effects. He is not requiring use of his rescue medicine at this time. He bought an Acapella device but was unsure how to use it. While in my office, the three of us looked at a InboxFeverTube video and I gave him some instructions on how to use it. He then went on to tell me that for about the last year, most nights while sitting still watching television, he will have some chest pain (he pointed to underneath his left arm). It does not radiate into the neck, jaw, shoulders or back. It does not take his breath away. He is not nauseated or lightheaded with it. About a year ago, he bought an oxygen concentrator at what sounds like a garage sale, and he has been using it during these episodes and the discomfort resolves within 10 minutes. This is the first I have heard of it. He has not shared it with any of his other physicians. He denied exertional chest pain. He had an unremarkable chest x-ray on January 22. Yanick Coleman MD [facility], [address], [facility] 03/25/2024 17:25:43 09/27/2024 text/html CHIEF COMPLAINT:COPD. HISTORY OF PRESENT ILLNESS:The patient returns today accompanied by his . Since I last saw him, his COPD has been stable. He denied any exacerbations requiring medical attention. He has chronic shortness of breath with exertion. Nothing acute or progressive. No complaint of cough or wheezing. Historically, he had lots of problems with cough, congestion, and mucus. That has resolved. He is tolerating the Daliresp without any side effects. There was some confusion about his maintenance medicines. It sounds like he is taking fluticasone/salmete rol 1 inhalation warm and dry. It sounds like he is taking Spiriva Respimat 2.5 mcg 2 q. a.m.. He has albuterol to take with a nebulizer which he does maybe 2 or 3 times a day. Yanick Coleman MD [address] [facility], [place], [address], [facility] 09/27/2024 17:41:01
--- OUTSIDE RECORDS SUMMARY | 2024-10-30 08:54 | XMS_ITS | Encounter Summary ---
Author Name [facility] [place] [facility] Address [address] [place] [address] Care Team Providers Care Geoint Analyst Name Role Phone EKATERINARONAN ALEJANDRO Primary Care Provider Unavailabl e DANGELO GALICIA Primary Care Provider Unavailabl e Insurance [...] PART B Dec 14, 2008 PART B [id number] MIS ZARATE HN PATIENT MEDICARE (WNR) MEDICARE (M) PART B Dec 14, 2008 PART B [id number] MIS ZARATE HN PATIENT MEDICARE (WNR) MEDICARE (M) PART B Dec 14, 2008 PART B [id number] MIS ZARATE HN PATIENT MEDICARE (WNR) MEDICARE (M) PART B Dec 14, 2008 PART B [id number] MIS ZARATE HN PATIENT MEDICARE (WNR) MEDICARE (M) PART A Sep 14, 2006 PART A [id number] MIS ZARATE HN PATIENT MEDICARE (WNR) MEDICARE (M) PART A Sep 14, 2006 PART A [id number] MIS ZARATE HN PATIENT MEDICARE (WNR) MEDICARE (M) PART A Sep 14, 2006 PART A [id number] MIS ZARATE HN PATIENT MEDICARE (WNR) MEDICARE (M) PART A Sep 14, 2006 PART A [id number] MIS ZARATE PATIENT MEDICARE PART D (WNR) PRESCRIPT ION PART D Jun 16, 2014 PART D [id number] MIS ZARATE PATIENT Selected Encounter This section includes the information on record at [place] for the Encounter. Date/Time Encounter Type Encounter Description Reason Pro vider Source Dec 24, 2023 02:23 PM Outpatient Encounter ADMIN PAT ACTIVTIES (MASNONCT) IHE Encounter Template Text not used by [place] Plan of Treatment: Future Appointments (+ 6 months) and Future Tests (+/- 45 days) The Plan of Treatment section includes future care activities for the patient from all [place] treatmentfacilities. This section includes future appointments and future orders which are active, pending or scheduled. Future Appointments This section includes appointments that were scheduled to occur 6 months from the date of the Encounter, up to a maximum of 20 appointments. The data comes from all [place] treatment facilities. Appointment Date/Time Appointment Type Appointme nt Facility Name Jan 08, 2024 01:00 PM AMBULATORY - NONE [facility] Jan 14, 2024 09:30 AM AMBULATORY - NONE [facility] Jan 23, 2024 01:30 PM AMBULATORY - NONE [facility] Jan 23, 2024 04:15 PM AMBULATORY - SURGERY [facility] Feb 19, 2024 02:00 PM AMBULATORY - SURGERY [facility] Jun 02, 2024 02:00 PM AMBULATORY - NONE [facility] Jun 14, 2024 03:00 PM AMBULATORY - NONE [facility] Jun 21, 2024 03:00 PM AMBULATORY - MEDICINE [facility] Lab Results: +/- 30 days of the encounter This section includes the Chemistry and Hematology Lab Results on record with [place] for the patient. Radiology Reports and Pathology Reports are provided separately, in subsequent sections. Lab Results This section contains the Chemistry/Hematology Results that were resulted 30 days before or 30 daysafter the date of the Encounter. Date/Time Source Result Type Result - Unit Interpretation Reference Range Specimen Type Comment Dec 17, 2023 02:10 PM [facility] PSA TOTAL EIA SERUM Specimen Type: SERUM Comment: PSA was performed on the Demandware Immunoassay Analyzer. Ordering Provider: DANGELO GALICIA Report Released Date/Time: Jun 25, 2023 02:46 PM Reporting Lab: [address] [address] Performing Lab: [address] [address] PSA TOTAL EIA 6.09 ng/mL H 0.00-4.00 Dec 17, 2023 02:10 PM [facility] A1C % BLOOD Specimen Type: BLOOD [...] 8.73 and 9.27. Ref: http://[email or web address].org/[email or web address] Ordering Provider: DANGELO GALICIA Report Released Date/Time: Jun 25, 2023 02:46 PM Reporting Lab: [address] [address] Performing Lab: [address] [address] A1C % 6.7 H 0.0-5.6 Dec 17, 2023 02:10 PM [facility] COMPREHENSIVE PNL PLASMA Specime n Type: PLASMA Comment: eGFR was calculated using the CKD-EPI Creatinine (2020) equation. Ordering Provider: DANGELO GALICIA Report Released Date/Time: Jun 25, 2023 02:46 PM Reporting Lab: [address] [address] Performing Lab: [address] [address] ANION GAP 5 mmol/L 5-15 EGFR 94 [...] mg/dL 0.67-1.17 Dec 17, 2023 02:10 PM [facility] CBC W/DIFF BLOOD Specimen T ype: BLOOD No comment entered. Ordering Provider: DANGELO GALICIA Report Released Date/Time: Jun 25, 2023 02:46 PM Reporting Lab: [address] [address] Performing Lab: [address] [address] WBC 8.4 10*3/uL 4.0-11.0 RBC 5.29 10*6/uL [...] ALL of a patient's completed or amended [place] Advance and Rescinded Directives. The entries below indicate that a directive exists for the patient, but an actual copy is not included with this document. The data comes from all [place] facilities. Date Advance Directives Provider Source Jul 13, 2021 ADVANCE DIRECTIVE DISCUSSION KATHIA SEO [facility] Sep 25, 2005 ADVANCE DIRECTIVE SCOOBYDustinJENSEN [facility] Encounter Notes: All associated encounter notes This section contains the clinical notes associated to the Encounter. Date/Time Encounter Note(s) Provider Source Dec 24, 2023 02:23 PM PHYSICIAN NOTE: LOCAL TITLE: PROVIDER/MEDICATION RECONCILIATION STANDARD TITLE: PHYSICIAN NOTE DATE OF NOTE: DEC 24, 2023@14:23:21 ENTRY DATE: DEC 24, 2023@14:23:21 AUTHOR: DANGELO GALICIA EXP COSIGNER: URGENCY: STATUS: COMPLETED [facility] [address] [place], [place] [address] GAYLE ZARATE DEC 24, 2023 [address] [facility] [address] [place], [place] [address] Patient: GAYLE ZARATE (: 1945) A list of reconciled medications was mailed or sent via secure messaging to the /Caregiver. The following medication list was reviewed with the patient/caregiver: The /caregiver was counseled on new medications and/or medication changes. Potential risks, benefits, and alternative to medications prescribed were discussed with /caregiver who was given an opportunity to ask questions, which were answered to the best of my ability and seemingly to their satisfaction. [place]/caregiver was/were instructed to contact provider (means provided) with any concerns or questions. INCLUDED IN THIS LIST: Alphabetical list of active outpatient prescriptions dispensed from this [place] (local) and dispensed from another [place] or [facility]D facility (remote) as well as inpatient orders (local pending and active), local clinic medications, locally documented non-VA medications, and local prescriptions that have or been discontinued in the past 90 days. NOTE The display of VA prescriptions dispensed from another [place] or [facility] facility (remote) is limited to active outpatient prescription entries matched to National Drug File at the originating site and may not include some items such as investigational drugs, compounds, etc. NOT INCLUDED IN THIS LIST: Medications self-entered by the patient into personal health records (i.e. [employer]) are not included in this list. Non-VA medications documented outside this [place], remote inpatient orders (regardless of status) and remote clinic medications are NOT included in this list. The patient and provider must always discuss medications the patient is taking, regardless of where the medication was dispensed or obtained. Patient safety alert: Medications and allergies from [facility] facilities may be incomplete. Reference [facility] for full list. Allergies/ADRs Facility Allergen (Reaction) -------- [facility] LISINOPRIL (DROWSY) [facility] LISINOPRIL (HYPOTENSION) [facility] LISINOPRIL (ITCHING OF EYE) [facility] LISINOPRIL (ANXIETY) [facility] NIASPAN 500MG ER TABLET (FLUSHING) [facility] PNEUMOVAX 23 (SWELLING (NON-SPECIFIC)) Local No Allergy/ADR Data available Med Reconciliation Patient is taking the following medications: ALBUTEROL 90MCG (CFC-F) 200D ORAL INHL (OUTPT Status: ACTIVE) Inhale 2 puffs by mouth four times a day as needed for breathing Usually Taken for: Breathing APIXABAN 5MG TAB (OUTPT Status: ACTIVE) Take one tablet by mouth twice a day blood thinner Usually Taken for: Blood thinner FLUTICAS 100/SALMETEROL 50 INHL DISK 60 (OUTPT Status: ACTIVE) Ybcuea1qypbrxkddjvxqxtzacnbmcz asthma/copd.rinsemouthafteruse . rinsemouthafereachuse. Usually Taken for: Breathing FUROSEMIDE 40MG TAB (OUTPT Status: PENDING) Takeonetabletbymouthdailyforbl oodpressure/waterpillforfluid buildup Usually Taken for: Blood pressure/Water pill GABAPENTIN 600MG TAB (OUTPT Status: PENDING) Take one tablet by mouth twice a day for nerve pain Usually Taken for: Pain/Neuropathy METFORMIN HCL 1000MG TAB (OUTPT Status: PENDING) Takeonetabletbymouthtwotimesad aybeforemorningandeveningmeal withfood-fordiabetes Usually Taken for: Diabetes METOPROLOL SUCCINATE 25MG SA TAB (OUTPT Status: ACTIVE) Take one-half tablet by mouth every morning for blood pressure Usually Taken for: Blood pressure/Heart QGLHK-3-WEOL ETHYL ESTERS CAP,ORAL (NON-VA Status: ACTIVE) 1000mg mouth daily Usually Taken for: Supplement OMEPRAZOLE 20MG EC CAP (OUTPT Status: ACTIVE) Taketwocapsulesbymoutheverymor mjhy69rygqaueeqoswrfaafthpfwev r stomachacid Usually Taken for: Stomach SACUBITRIL 49MG/VALSARTAN 51MG TAB (OUTPT Status: PENDING) Take 1 tablet by mouth twice a day for heart failure. Usually Taken for: Blood pressure/Heart failure SIMVASTATIN 40MG TAB (OUTPT Status: ACTIVE) Takeonetabletbymouthatbedtimea voidgrapefruitcallyourprovider if youhavemusclepain,tendernessor weakness-for cholesterol Usually Taken for: Cholesterol SOTALOL HCL 120MG TAB (OUTPT Status: ) Take one tablet by mouth twice a day Usually Taken for: Heart SPIRONOLACTONE 25MG TAB (OUTPT Status: PENDING) Takeone-halftabletbymouthdaily forbloodpressure/waterpillforh eart failure Usually Taken for: Blood pressure/Water pill TIOTROPIUM 18MCG INHL CAP (30 CAPS/BOX) (OUTPT Status: ACTIVE) Inhalecontentsofonecapsulebyin haler(afterinsertingcapsulein device)bymotexas health dentonmisty rodriguez.for breathing Usually Taken for: Breathing Patient is NOT taking the following medications: ASPIRIN (ENTERIC-COATED)(OTC) TAB,EC (NON-[place] Remote: [facility] Status: ACTIVE) 325mg by mouth every day (Completed) Usually Taken for: Blood thinner CHOLECALCIFEROL (LOW DOSE VIT D) - (OTC) TAB (NON-[place] Remote: [facility] Status: ACTIVE) 1000unit by mouth once a day (Completed) Usually Taken for: Supplement FUROSEMIDE 40MG TAB (OUTPT Status: ACTIVE) Take one tablet by mouth daily for blood pressure/water pill (Completed) Usually Taken for: Blood pressure/Water pill GABAPENTIN 600MG TAB (OUTPT Status: ACTIVE) Take one tablet by mouth twice a day (Completed) Usually Taken for: Pain/Neuropathy SPIRONOLACTONE 25MG TAB (OUTPT Status: ACTIVE) Takeone-halftabletbymouthdaily forbloodpressure/waterpill (Completed) Usually Taken for: Blood pressure/Water pill /es/ Dangelo Galicia M.D. M.D. Date printed: DEC 24, 2023 14:37 [facility] DANGELO GALICIA [facility]
--- OUTSIDE RECORDS SUMMARY | 2024-10-30 08:54 | XMS_ITS | Encounter Summary ---
Author Organization [facility] Address [address] [place] [address] Care Team Providers Care Philosophy Faculty Name Role Phone Tita Mccain APRN, NP-C Unavailable [phone] Dorian Christy MD Unavailable [phone] Dangelo Adames MD Primary Care Provider [phone] Yanick Jackson MD Unavailable [phone] Gokul Mayorga MD Unavailable [phone] Chante Lucas MD Unavailable [phone] Teri Jerome PA-C Unavailable [phone] Encounter Details Date Type Department Care Team (Late st Contact Info) Description 07/17/2022 Hospital Orders Only [facility] [address] [place] [address] Mary Cadena RN Anesthesia Record Procedure Summary Procedure Name Responsible Anesthesiologist Anesthesia Start Time Anesthesia Stop Time XA PVC ABLATION Luis Buckley MD 07/18/22 0801 1135 Events Date Time Event Comment 07/18/2022 0658 0658 AN Anesthesia Prepped 0801 An Start Patient ID and consent checked and patient reassessed. 0801 An Start Data 0801 AN Immediate Reassess The pa tient was reevaluated immediately before sedation or regional anesthesia. 0801 Face Mask Applied 0810 Anesthesia Ready 0817 Quick Note Cuff on o2 sat probe side 0859 An Defib 1004 Quick Note Act 383 1115 an stop data 1135 Post Anesthetic Care Handoff I completed my handoff to the receiving nurse during which we: 1. Identified the patient 2. Identified the responsible provider 3. Reviewed the pertinent medical history 4. Discussed the surgical course 5. Reviewed intra-op anesthesia management and issues during anesthesia 6. Set expectations for post-procedure period 7. Allowed opportunity for questions and acknowledgement of understanding. 1135 An Stop Meds * Agents No agents on file. * Blood No blood administrations on file. Lines, Drains, and Airways Type Details Placement Removal Peripheral IV Placement Date: 08/08; Placement Time: 721; Placed Outside of This Facility?: Yes; Size: 18 G; Orientation: Left; Location: Antecubital; Site Prep: Alcohol; Local Anesthetic: None; Inserted By: carlota; Insertion attempts: 1; Ultrasound-guided Placement?: No; Patient Tolerance: Tolerated well; Removal Date: 07/19/22; Removal Time: 1156; Removal Reason: Patient Discharged 07/18/22 07 by Holly Ordaz RN 07/19/22 1156 by Tulio Resendiz RN documented in this encounter Social History Tobacco Use Types Packs/Day Years Used Date Smoking Tobacco: Former Cigarettes 1 50 1 954 - 2004 Smokeless Tobacco: Never Alcohol Use Standard Drinks/Week Comments No 0 (1 standard drink = 0.6 oz pur e alcohol) Humiliation, Afraid, Rape, and Kick questionnair e Answer Date Recorded Within the last year, have y ou been afraid of your partner or ex-partner? No 07/18/2022 Within the last year, have y ou been humiliated or emotionally abused in other ways by your partner or ex-partner? No Within the last year, have y ou been kicked, hit, slapped, or otherwise physically hurt by your partner or ex-partner? No 07/18/2022 Within the last year, have y ou been raped or forced to have any kind of sexual activity by your partner or ex-partner? No 07/18/2022 Overall Financial Resource Strain (CARDIA) Answe r Date Recorded How hard is it for you to pa y for the very basics like food, housing, medical care, and heating? Not hard at all 07/18/2022 Hunger Vital Sign Answer Date Recorded Within the past 12 months, y ou worried that your food would run out before you got the money to buy more. Never true 07/18/19 23 Within the past 12 months, t he food you bought just didn't last and you didn't have money to get more. Never true 07/18/2022 PRAPARE - Transportation Answer Date Re corded In the past 12 months, has l ack of transportation kept you from medical appointments or from getting medications? No 07/2022 In the past 12 months, has l ack of transportation kept you from meetings, work, or from getting things needed for daily living? No 07/18/2022 Housing Stability Vital Sign Answer Venkatesh e Recorded In the last 12 months, was t here a time when you were not able to pay the mortgage or rent on time? No 07/18/2022 In the last 12 months, how many places have you lived? 0 07/18/2022 In the last 12 months, was t here a time when you did not have a steady place to sleep or slept in a mcfp (including now)? No 07/18/2022 Sex and Gender Information Value Date Recorded Sex Assigned at Male 08/09/2024 3:31 PM CINDER PITMAN Legal Sex Male 11:57 PM CDT Gender Identity Male 06/14/2019 10:46 AM CINDER PITMAN Sexual Orientation Not on file Occupation Industry Job Start Date Job End Date Not on file Not on file Not on file Not on file COVID-19 Exposure Response Date Recorded In the last 10 days, have yo u been in contact with someone who was confirmed or suspected to have Coronavirus/COVID-19? No / Unsure 07/17/2022 1:59 PM CINDER PITMAN documented as of this encounter Functional Status * Question Answer Date of Assessment Author Status Do you have serious difficulty walking or climbing stairs? No 07/18/2022 3:16 PM CINDER PITMAN Kenya Mcgraw RN Ac tive * Question Answer Date of Assessment Author Status Do you have difficulty dressing or bathing? No 07/18/2022 3:16 PM CINDER PITMAN Kenya Mcgraw R N Active Because of a physical, mental, or emotional condition, do you have difficulty doing errands alone such as visiting a doctor's office or shopping? No 07/18/2022 3:16 PM Kenya Medrano RN Act woody * RETIRED Are you deaf or do [...] Assessment Author Status No 12/12/2021 6:54 PM Elissa Lovett RN Active * Do you have difficulty dressing or bathing? Answer Date of Assessment Author Status No 12/12/2021 6:54 PM Elissa Lovett RN Active * Because of a physical, mental, or emotional condition, do you have difficulty doing errands alone such as visiting a doctor's office or shopping? Answer Date of Assessment Author Status No 12/12/2021 6:54 PM Elissa Lovett RN Active * Calculated C-SSRS Risk Score (Lifetime/Recent) Answer Date of Assessment Author Status No Risk Indicated 07/18/2022 7:11 AM Lalo Hale RN Active * [place] Suicide Severity Rating Scale (Screener/Recent Self-Report) Question Answer Date of Assessment Author Status 1. Wish to be (Past 1 Month) No 07/18/2022 7:11 AM Holly Hale RN Active 2. Non-Specific Active Suicidal Thoughts (Past 1 Month) No 07/18/2022 7:11 AM Holly Hale RN Active 6. Suicidal Behavior (Lifetime) No 07/18/2022 7:11 AM Holly Hale RN Active documented as of this encounter Mental Status * Question Answer Entry Date Author Status Because of a physical, mental, or emotional condition, do you have serious difficulty concentrating, remembering, or making decisions? No 07/18/2022 3:16 PM Kenya Medrano R N Active * Because of a physical, mental, or emotional condition, do you have serious difficulty concentrating, remembering, or making decisions? Answer Entry Date Author Status No 12/12/2021 6:54 PM CDT Elissa Taylor RN Active documented in this encounter Plan of Treatment Not on file documented as of this encounter Visit Diagnoses Not on filedocumented in this encounter Additional Health Concerns Infection Onset Date Last Indicated Resolved Time COVID-19 Rule Out 08/09/2024 08/09/2024 08/09/2024 4:36 PM CINDER PITMAN documented as of this encounter Care Teams Philosophy Faculty Relationship Specialty Start Date End Date Dangelo Adames MD [address] [place] [address] PCP - General INTERNAL MEDICINE 10/24/17 Tita Mccain APRN, ROOFER ASSISTANT-C [address] [place] [address] [address] [place] [address] NURSE PRACTITIONER 05/30/17 01/26/24 Dorian Christy MD [address] [place] [phone] CARDIOVASCULAR DISEASE 06/30/17 4 Yanick Jackson MD [address] [address] PULMONARY DISEASE 10/28/17 Gokul Mayorga MD [address] [place] [address] EP Cutter Helper CLINICAL CARDIAC ELECTROPHYSIOLOGY 08/27/21 Chante Lucas MD [address] [place] [address] INTERVENTIONAL CARDIOLOGY 11/20/2310/18 Teri Jerome PA-C [address] [place] [address] Referring Physician PHYSICIAN LEARNING DEVELOPMENT SPECIALIST 10/17/24 documented as of this encounter
--- OUTSIDE RECORDS SUMMARY | 2024-10-30 08:54 | XMS_ITS | Encounter Summary ---
Author Organization [facility] Address [address] [place] [address] Care Team Providers Care Air And Water Filler Name Role Phone Tita Mccain APRN FLEET OPERATIONS MANAGER-C Unavailable Dorian Christy MD Unavailable [phone] Dangelo Adames MD Primary Care Provider [phone] Yanick Jackson MD Unavailable [phone] Gokul Mayorga MD Unavailable [phone] Chante Lucas MD Unavailable [phone] Teri Jerome PA-C Unavailable [phone] Encounter Details Date Type Department Care Team (Late st Contact Info) Description 11/21/2018 Abstract SFL CONVERSION [address] [place] [address] , Generic Conversion, Social History Tobacco Use Types Packs/Day Years Used Date Smoking Tobacco: Former Cigarettes 1 50 Smokeless Tobacco: Never Alcohol Use Standard Drinks/Week Comments No 0 (1 standard drink = 0.6 oz pur e alcohol) Sex and Gender Information Value Date Recorded Sex Assigned at Male 08/09/2024 3:31 PM TACTICAL AIR DEFENSE CONTROLLER Legal Sex Male 11:57 PM CDT Gender Identity Male 06/14/2019 10:46 AM TACTICAL AIR DEFENSE CONTROLLER Sexual Orientation Not on file Occupation Industry Job Start Date Job End Date Not on file Not on file Not on file Not on file documented as of this encounter Plan of Treatment Not on file documented as of this encounter Visit Diagnoses Not on filedocumented in this encounter Additional Health Concerns Infection Onset Date Last Indicated Resolved Time COVID-19 Rule Out 08/09/2024 08/09/2024 08/09/2024 4:36 PM TACTICAL AIR DEFENSE CONTROLLER documented as of this encounter Care Teams Air And Water Filler Relationship Specialty Start Date End Date Dangelo Adames MD [address] [place] [address] PCP - General INTERNAL MEDICINE 10/24/17 Tita Mccain APRN, FLEET OPERATIONS MANAGER-C [address] [place] [address] [address] [place] [address] NURSE PRACTITIONER 05/30/17 01/26/24 Dorian Christy MD [address] [place] [phone] CARDIOVASCULAR DISEASE 06/30/17 4 Yanick Jackson MD [address] [place] [phone] PULMONARY DISEASE 10/28/17 Gokul Mayorga MD [address] [place] [address] EP Public Safety Director CLINICAL CARDIAC ELECTROPHYSIOLOGY 08/27/21 Chante Lucas MD [address] [place] [phone] INTERVENTIONAL CARDIOLOGY 11/20/2310/18 Teri Jerome PA-C [address] [place] [phone] Referring Physician PHYSICIAN COVER CUTTER 10/17/24 documented as of this encounter
--- OUTSIDE RECORDS SUMMARY | 2024-10-30 08:55 | XMS_ITS | Encounter Summary ---
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 Name Role Phone EKATERINARONAN ALEJANDRO Primary Care [...] PART B Dec 14, 2008 PART B [id number] MIS ZARATE HN PATIENT MEDICARE (WNR) MEDICARE (M) PART B Dec 14, 2008 PART B [id number] MIS ZARATE HN PATIENT MEDICARE (WNR) MEDICARE (M) PART B Dec 14, 2008 PART B [id number] MIS ZARATE HN PATIENT MEDICARE (WNR) MEDICARE (M) PART B Dec 14, 2008 PART B [id number] MIS ZARATE HN PATIENT MEDICARE (WNR) MEDICARE (M) PART A Sep 14, 2006 PART A [id number] MIS [place]AR[place] HN PATIENT MEDICARE (WNR) MEDICARE (M) PART A Sep 14, 2006 PART A [id number] MIS ZARATE HN PATIENT MEDICARE (WNR) MEDICARE (M) PART A Sep 14, 2006 PART A [id number] MIS ZARATE HN PATIENT MEDICARE (WNR) MEDICARE (M) PART A Sep 14, 2006 PART A [id number] MIS ZARATE HN PATIENT MEDICARE PART D (WNR) PRESCRIPT ION PART D Jun 16, 2014 PART D [id number] MIS ZARATE PATIENT Selected Encounter This section includes the information on record at [place] for the Encounter. Date/Time Encounter Type Encounter Description Reason Provider Source Dec 24, 2023 02:30 PM OFFICE O/P EST MOD 30 MIN PRIMARY CARE/MEDICINE ICD-10-CM L72.3 Sebaceous cyst DANGELO GALICIA [facility] Encounter Template Text not used by [place] Assessments - Encounter Diagnoses This section includes the primary and secondary diagnoses documented for the Encounter. Date/Time Primary/Secondary Diagnosis Diagnosis Name Provider Source Dec 24, 2023 02:30 PM PRIMARY [facility] Dec 24, 2023 02:30 PM SECONDARY Chronic obstructive pulmonary disease w (acute) exacerbation [facility] Dec 24, 2023 02:30 PM SECONDARY Elevated prostate specific antigen [PSA] [facility] Dec 24, 2023 02:30 PM SECONDARY Encounter for immunization HABIB,SONJA L [facility] Dec 24, 2023 02:30 PM SECONDARY Essential (primary) hypertension [facility] Dec 24, 2023 02:30 PM SECONDARY Gastro-esophageal reflux disease without esophagitis [facility] Dec 24, 2023 02:30 PM SECONDARY Heart failure, unspecified [facility] Dec 24, 2023 02:30 PM SECONDARY Mixed hyperlipidemia [facility] Dec 24, 2023 02:30 PM SECONDARY Obstructive sleep apnea (adult) (pediatric) [facility] Dec 24, 2023 02:30 PM SECONDARY Type 2 diabetes mellitus with diabetic neuropathy, unsp DANGELO GALICIA [facility] Dec 24, 2023 02:30 PM SECONDARY Type 2 diabetes mellitus without complications DANGELO GALICIA [facility] Dec 24, 2023 02:30 PM SECONDARY Unspecified atrial fibrillation DANGELO GALICIA [facility] Plan of Treatment: Future Appointments (+ 6 months) and Future Tests (+/- 45 days) The Plan of Treatment section includes future care activities for the patient from all [place] treatmentfacilities. This section includes future appointments and future orders which are active, pending or scheduled. Future Appointments This section includes appointments that were scheduled to occur 6 months from the date of the Encounter, up to a maximum of 20 appointments. The data comes from all [place] treatment facilities. Appointment Date/Time Appointment Type Appointme nt Facility Name Jan 08, 2024 01:00 PM AMBULATORY - NONE [facility] Jan 14, 2024 09:30 AM AMBULATORY - NONE [facility] Jan 23, 2024 01:30 PM AMBULATORY - NONE [facility] Jan 23, 2024 04:15 PM AMBULATORY - SURGERY [facility] Feb 19, 2024 02:00 PM AMBULATORY - SURGERY [facility] Jun 02, 2024 02:00 PM AMBULATORY - NONE [facility] Jun 14, 2024 03:00 PM AMBULATORY - NONE [facility] Jun 21, 2024 03:00 PM AMBULATORY - MEDICINE [facility] Lab Results: +/- 30 days of the encounter This section includes the Chemistry and Hematology Lab Results on record with [place] for the patient. Radiology Reports and Pathology Reports are provided separately, in subsequent sections. Lab Results This section contains the Chemistry/Hematology Results that were resulted 30 days before or 30 daysafter the date of the Encounter. Date/Time Source Result Type Result - Unit Interpretation Reference Range Specimen Type Comment Dec 17, 2023 02:[address] [facility] PSA TOTAL EIA SERUM Specimen Type: SERUM Comment: PSA was performed on the Siemens Buyers Edge Immunoassay Analyzer. Ordering Provider: DANGELO GALICIA Report Released Date/Time: Jun 25, 2023 02:46 PM Reporting Lab: [place] [id number] [facility] [id number] Performing Lab: [facility] [address] [facility] [address] PSA TOTAL EIA 6.09 ng/mL H 0.00-4.00 Dec 17, 2023 02:[address] [facility] A1C % BLOOD Specimen Type: BLOOD [...] Jun 25, 2023 02:46 PM Reporting Lab: [address] [address] Performing Lab: [address] [address] A1C % 6.7 H 0.0-5.6 Dec 17, 2023 02:[address] [facility] COMPREHENSIVE PNL PLASMA Specime n Type: PLASMA Comment: eGFR was calculated using the CKD-EPI Creatinine (2020) equation. Ordering Provider: DANGELO GALICIA Report Released Date/Time: Jun 25, 2023 02:46 PM Reporting Lab: [address] [address] Performing Lab: [address] [address] ANION GAP 5 mmol/L 5-15 EGFR 94 [...] mg/dL 0.67-1.17 Dec 17, 2023 02:[address] [facility] CBC W/DIFF BLOOD Specimen T ype: BLOOD No comment entered. Ordering Provider: DANGELO GALICIA Report Released Date/Time: Jun 25, 2023 02:46 PM Reporting Lab: [facility] [address] [facility] [address] Performing Lab: [facility] [address] [facility] [address] WBC 8.4 10*3/uL 4.0-11.0 RBC 5.29 10*6/uL [...] 0.0 /100{WBCs} 0-0.2 NRBC# <0.01 10*3/uL 0-0.012 Vital Signs: All taken on the encounter date This section contains inpatient and outpatient Vital Signs collected on the date of the Encounter. Date/Time Temperature Pulse Blood Pressure Respiratory Rate SP02 Pain Height Weight Body Mass Index Source Dec 24, 2023 01:51 PM 97.9 64 113/71 16 93 3 188.3 28 [facility] Immunizations: All administered on the encounter date This section contains immunizations associated to the Encounter. Immunization Series Date Issued Administered By Site Reaction Lot Number CVX Code Drug Telegraph Service Rater Comment(s) Source TDAP Dec 24, 2023 SONJA ROSALES LEFT DELTO ID [id number] [facility] Social History: Smoking Status (Most current) and Tobacco Use (All prior to encounter date) This section includes the most current, and the historical, smoking and tobacco- related health factors from the [place] facility where the Encounter took place. Current Smoking Status This section includes the most current smoking, or tobacco-related health factor, from the [place] facility where the Encounter took place. Date/Time Current Smoking Status Comment Facil it Dec 24, 2023 02:30 PM VA-TOBACCO QUIT [address] [facility] Tobacco Use History This section includes a history of the smoking, or tobacco-related health factors, that were collected on or before the date of the Encounter. The data comes from the [place] facility where the Encounter took place. Date/Time Smoking Status/Tobac co Use Comment Facility Dec 24, 2023 02:30 PM VA-TOBACCO QUIT [address] [facility] Dec 27, 2022 02:30 PM VA-TOBACCO FORMER USER [facility] Dec 27, 2022 02:30 PM VA-TOBACCO QUIT [address] [facility] October 29, 2021 02:30 PM VA-TOBACCO FORMER USER [facility] October 29, 2021 02:30 PM VA-TOBACCO QUIT [address] [facility] November 01, 2020 03:30 PM VA-TOBACCO FORMER USER [facility] November 01, 2020 03:30 PM VA-TOBACCO QUIT [address] [facility] Jul 08, 2019 01:23 PM VA-TOBACCO FORMER USER [facility] Jul 08, 2019 01:23 PM VA-TOBACCO QUIT [address] [facility] Sep 11, 2018 09:33 AM VA-TOBACCO FORMER USER [facility] Sep 11, 2018 09:33 AM VA-TOBACCO QUIT [address] [facility] Aug 25, 2017 01:31 PM QUIT TOBACCO >7 YEARS AGO quit [address] [facility] Sep 02, 2016 09:31 AM QUIT TOBACCO >7 YEARS AGO [address] [facility] Mar 01, 2015 10:52 AM QUIT TOBACCO >[address] [facility] Advance Directives: All historical and current Section Date Range: From patient's date of to the date document was created. This section includes ALL of a patient's completed or amended [place] Advance and Rescinded Directives. The entries below indicate that a directive exists for the patient, but an actual copy is not included with this document. The data comes from all [place] facilities. Date Advance Directives Provider Source Jul 13, 2021 ADVANCE DIRECTIVE DISCUSSION KATHIA SEOMERY [facility] Sep 25, 2005 ADVANCE DIRECTIVE MIKEY OSORIO [facility] Encounter Notes: All associated encounter notes This section contains the clinical notes associated to the Encounter. Date/Time Encounter Note(s) Provider Source Dec 24, 2023 02:08 PM PRIMARY CARE NOTE: LOCAL TITLE: [facility] STANDARD TITLE: PRIMARY CARE NOTE DATE OF NOTE: DEC 24, 2023@14:08 ENTRY DATE: DEC 24, 2023@14:08:38 AUTHOR: DANGELO GALICIA EXP COSIGNER: URGENCY: STATUS: COMPLETED CHIEF COMPLAINT: Preventative appt for AFib, MARY, CHF, HTN, COPD, GERD, hyperlipidemia, DM2, screening colon cancer, neuropathy, elev PSA HISTORY OF PRESENT ILLNESS: Nursing notes reviewed. This is a 78 year-old being seen today for above reason. Lump on back of neck - is sore. Has been there for long time but has gottten bigger in size. No drainage from the area. AFib - on metorolol, sotolol, and apixiban. No bleeding. MARY- on CPAP. Using CPAP routinelly. CHF - last EF 45-50%. ON aldactone, lasix, entresto, metoprolol. No chest pain. Some SOB. No LE edema, orthon, PND. Sees manager human resources. HTN - on metoprolol, sotolol, lasix, entresto, and aldactone. BP is good on current Rx. COPD - on albuterol, fluctisone/salmeterol, and sprivia., Sees pulm. Feeling m SOB but nof worse. Cough with spuptum. Sputum has been yellow. No blood. NO fever/chills. Inhalers do help. hyperlipidemia - on simvastatin. Will check labs at next appt. DM2 - on metformin 1000 mg BID. Last HbA1c was 6.7%. Last eye exam was screening colon cancer- would not do given age. nerupathy - on gabapentin. No sores on feet. Med may help. elev PSA - previous PSA was 7.09. Last PSA was 6.09. No urinary symtoms. PAST MEDICAL HISTORY: Medications: As listed in chart and reviewed. Allergies: Patient has answered NKA >>Non-VA provider(s): kellie hendrickson SOCIAL HISTORY: Habits (Y/N): [n ] Tabacco [n ] Alcohol use [n ] Illicit drug use REVIEW OF SYSTEMS: General: No fever, chills, weight loss, or anorexia. No fatigue. HEENT: No visual or hearing changes. Cardiovascular: No chest pain, palptiations, edema. Respiratory: See HPI Some dyspnea. No hemoptysis. Gastrointestinal: No abdominal pain, nausea/vomiting, diarrhea, or hematochezia, or melena. Genitalurinary: No dysuria, urgency, frequency, hematuria. Musculoskeletal: No acute muscle or joint pain. Skin: see HPI. Neurologic: No headache, dizziness, numbness, tingling, weakness. Psychoogical: No depressive or anxiety symptoms. No suicidal ideation. OBJECTIVE: Vital signs: DATE/TIME TEMP PULSE RESP BP PAIN WT (LB) P OX 12/24/23 @ 1351 97.9 64 16 113/71 3 188.3 93 Physical Exam: General: NAD. Awake, alert, oriented x3. here with Skin: baseball size ariadna cyst on back of neck Heart: RRR. No murmurs, gallops, rubs. Lungs: Dec breath shouds with rhconhi and cough. No crackles or wheeze. Abdomen: Pos bowel sounds, soft, non-distended. No tenderness, guarding, rebound. No HSM. Extremities: No clubbing, cyanosis, edema. Psychiatric: Pleasant, cooperative. Affect is full and mood congruent. Labs: [x ] Reviewed with patient from 12/17/23 ASSESSMENT/PLAN: 1. sebaceous cyst - will have him see surgeon for this. Will need to hold eliquis 5 days before procedure then restart. 2. chornic obstrtuctive pulmonary disease excacerbation - will Rx doxycline 100 mg BID x 10 days. No steroid as no wheeze and is DM2. If gets worse to go to Er. 3. atrial fibrallation - rate controlled and anticcogualated. 4. obstrutive sleep apnea - continue CPAP 5. chongestive heart fiaulre - stable., contineu meds and follow up with manager human resources. 6. hypertension - blood pressure is good, continue meds 7. gastroesohgeal reflux diseae- med does help 8. hyperlipidemia- check labs at next appt 9. diabetes mellitus type 2- good glycemic control, continue med and diet 10. nerupathy - med does help 11. elvated prostate specificc antigen - may have to have him see urologist. Follow-up: 6 months [x ] Get labs 1 week before: Total time: 30 mins -For new medications, potential side effects reviewed with patient. -Medications refilled as needed. -Patient advised that if symptoms get worse or not better to call or go to nearest ED or urgent care for further evaluation. -Preventive medicine items reviewed with patient as indicated. -Patient advised to return to clinic as planned or as needed. /xena/ Dangelo Galicia M.D. M.D. Signed: 12/24/2023 14:[address] [facility] Dec 24, 2023 01:51 PM NURSING NOTE: LOCAL TITLE: DANIELLA/PREVMED STANDARD TITLE: NURSING NOTE DATE OF NOTE: DEC 24, 2023@13:51 ENTRY DATE: DEC 24, 2023@13:51:14 AUTHOR: SONJA ROSALES EXP COSIGNER: URGENCY: STATUS: COMPLETED TWO OR MORE PATIENT IDENTIFIERS REQUIRED FULL NAME SS NUMBER Date [facility] here for 6 month appointment having issues with COPD and wanting to see about getting help with phlegm in chest and lump on back of neck that is sore here with PCP: [place] Specialists: cardiology, pulmonology Alcohol Use Screen (AUDIT-C): Alcohol Screen: SCREEN FOR ALCOHOL (AUDIT-C) An alcohol screening test (AUDIT-C) was negative (score=0). 1. How often did you have a drink containing alcohol in the past year? Consider a drink to be a 12 ounce can or bottle of regular beer, 8 ounces of malt liquor, a 5 ounce glass of table wine, or a 1.5 ounce shot of liquor (like scotch, gin, or vodka). Never 2. How many drinks containing alcohol did you have on a typical day when you were drinking in the past year? Response not required due to responses to other questions. 3. How often did you have six or more drinks on one occasion in the past year? Response not required due to responses to other questions. Depression Screening: Perform PHQ-2 A PHQ-2 screen was performed. The score was 0 which is a negative screen for depression. Over the past two weeks, how often have you been bothered by the following problems? 1. Little interest or pleasure in doing things Not at all 2. Feeling down, depressed, or hopeless Not at all RHS Screen: RHS Screen Environmental Check Screening was not completed at this time due to: Another adult present DANIELLA-DIABETIC FOOT SCREEN: Patient Refused DM Foot exam this visit. DANIELLA-CHF PATIENT EDUCATION: Patient declined chf/patient education at this encounter. DANIELLA-EXERCISE SCREEN: Patient had Exercise Screening done at this encounter. Type of exercise, duration and frequency/week. Comment: stays active Did patient report New Balance Problem? [ NO ] Did patient report New Transfer Problem? [ NO ] Did patient report New Ambulating Problem? [ NO ] Has the patient fallen within the past 12 months? NO. Consult Orders placed: No Consult orders needed. DANIELLA-SKIN RISK ASSESSMENT: DANIELLA/SKIN RISK REMINDER *VICE ADMIRAL* The reports no current pressure ulcers, wounds, or a history of pressure ulcers. The [place] reports no use of a wheelchair for mobility at least 75% of the time. DANIELLA/HOOPER INDEX (ADLS SCREEN): FUNCTIONAL: Hooper Index of [place] in Activities of Daily Living ACTIVITIES INDEPENDENCE (1 point) NO supervision, direction, or personal assistance. DEPENDENCE (0 points) WITH supervision, direction, personal assistance, OR total care. BATHING Point(s) (1 point) Baths self completely or needs help in bathing only a single a single part of the body such as the back, genital area or disabled extremity. DRESSING Point(s) (1 point) Gets clothes from closets and drawers and puts on clothes and outer garments complete with fasteners. May complete with fasteners. May have help tying shoes. TOILETING Point(s) (1 point) Goes to toilet, gets on and off, arranges clothes, cleans genital area without help.\ TRANSFERRING Point(s) (1 point) Moves in and out of bed or chair unassisted. Mechanical transferring aides are acceptable. CONTINENCE Point(s) (1 point) Exercises complete self control over urination and defecation. FEEDING Point(s) (1 point) Gets food from plate into mouth without help Preparation of food may be done by another person. TOTAL POINTS: 6=High (patient independent) 0=Low (patient very dependent) 6 Tobacco Use Screening: The patient is a former tobacco user. The patient quit fifteen or more years ago. Td / Tdap Immunization: Administered: TDAP Date Administered: Dec 24, 2023 14:06 Telegraph Service Rater: [employer] Lot: [id number] Exp Date: Dec 03, 2025 [facility]: [phone] Admin Route/Site: INTRAMUSCULAR/LEFT DELTOID Dosage: 0.5mL Vaccine Information Statement(s): TDAP (TETANUS, DIPHTHERIA, PERTUSSIS) VACCINE VIS Jan 19, 2021 ([facility]) Order By: Policy Administered By: Sonja Rosales Vaccine Information Sheet (VIS) was given to the patient/caregiver, education regarding adverse reactions was discussed, as well as barriers to learning, if any, were acknowledged. Stress: [place] reports nothing in the last 6 months that has caused worry or stress. COVID-19 Immunization: /es/ SONJA ROSALES design engineer agricultural equipment Signed: 12/24/2023 14:[address] [facility]
--- OUTSIDE RECORDS SUMMARY | 2024-10-30 08:55 | XMS_ITS | Encounter Summary ---
Author Name [facility] Address [address] [place] [id number] Care Team Providers Care Bi Data Architect Name Role Phone ALEJANDRO CRAMER Primary Care Provider Unavailabl e CHAVEZ GALICIA [...] PART B Dec 14, 2008 PART B [id number] MIS ZARATE HN PATIENT MEDICARE (WNR) MEDICARE (M) PART B Dec 14, 2008 PART B [id number] [phone] MIS ZARATE HN PATIENT MEDICARE (WNR) MEDICARE (M) PART B Dec 14, 2008 PART B [id number] MIS ZARATE HN PATIENT MEDICARE (WNR) MEDICARE (M) PART B Dec 14, 2008 PART B [id number] MIS ZARATE HN PATIENT MEDICARE (WNR) MEDICARE (M) PART A Sep 14, 2006 PART A [id number] MIS ZARATE HN PATIENT MEDICARE (WNR) MEDICARE (M) PART A Sep 14, 2006 PART A [id number] MIS ZARATE HN PATIENT MEDICARE (WNR) MEDICARE (M) PART A Sep 14, 2006 PART A [id number] [phone] MIS ZARATE HN PATIENT MEDICARE (WNR) MEDICARE (M) PART A Sep 14, 2006 PART A [id number] MIS ZARATE HN PATIENT MEDICARE PART D (WNR) PRESCRIPT ION PART D Jun 16, 2014 PART D [id number] MIS ZARATE PATIENT Selected Encounter This section includes the information on record at [place] for the Encounter. Date/Time Encounter Type Encounter Description Reason Provider Source Aug 06, 2024 02:00 PM HEARING AID FITTING/CHECKIN G AUDIOLOGY ICD-10-CM H90.3 Sensorineural hearing loss, bilateral DOMINGO MEDRANO [facility] Encounter Template Text not used by [place] Assessments - Encounter Diagnoses This section includes the primary and secondary diagnoses documented for the Encounter. Date/Time Primary/Secondary Diagnosis Diagnosis Name Provider Source Aug 06, 2024 02:31 PM PRIMARY Sensorineural hearing loss, bilateral DOMINGO MEDRANO [facility] Plan of Treatment: Future Appointments (+ 6 months) and Future Tests (+/- 45 days) The Plan of Treatment section includes future care activities for the patient from all [place] treatmentfacilities. This section includes future appointments and future orders which are active, pending or scheduled. Future Appointments This section includes appointments that were scheduled to occur 6 months from the date of the Encounter, up to a maximum of 20 appointments. The data comes from all [place] treatment facilities. Appointment Date/Time Appointment Type Appointme nt Facility Name Aug 25, 2024 02:00 PM [facility] Sep 27, 2024 02:15 PM [facility] October 27, 2024 02:45 PM [facility]ORY [facility] NONE [facility] Dec 20, 2024 02:30 PM AMBULATORY - NONE [facility] Dec 21, 2024 02:00 PM AMBULATORY - NONE [facility] Dec 27, 2024 03:00 PM AMBULATORY - MEDICINE [facility] Advance Directives: All historical and current Section Date Range: From patient's date of to the date document was created. This section includes ALL of a patient's completed or amended [place] Advance and Rescinded Directives. The entries below indicate that a directive exists for the patient, but an actual copy is not included with this document. The data comes from all [place] facilities. Date Advance Directives Provider Source Jul 13, 2021 ADVANCE DIRECTIVE DISCUSSION KATHIA SEO [facility] Sep 25, 2005 ADVANCE DIRECTIVE SCOOBYDustinMIKEY [facility] Encounter Notes: All associated encounter notes This section contains the clinical notes associated to the Encounter. Date/Time Encounter Note(s) Provider Source October 27, 2024 02:18 PM ADDENDUM: LOCAL TITLE: Addendum STANDARD TITLE: ADDENDUM DATE OF NOTE: OCTOBER 27, 2024@14:18:21 ENTRY DATE: OCTOBER 27, 2024@14:18:23 AUTHOR: DARIN MADDOX EXP COSIGNER: URGENCY: STATUS: COMPLETED PPM message was entered for patient, the RTC was dispostioned on 08/24/24, please advise if patient is to be seen for HAF. Last Name: Jocy First Name: Gayle Last Four: 1006 Date of : Reason: Appointment Comment: to schedule a spr cvt for HAF Return Call: Yes /xena/ DARIN MADDOX HARMONIC ANALYST Signed: 10/27/2024 14:20 Receipt Acknowledged By: * AWAITING SIGNATURE * LOVE VERNON 10/27/2024 15:47 /es/ NARESH TEJADA LPN 10/28/2024 08:30 /es/ APURVA SANDRA LPN LPN --- Original Document --- 08/06/24 AUDIOLOGY/HEARING EVALUATION: The was seen for a comprehensive audiological evaluation and to discuss the potential treatment option of hearing aids. The patient has a reported history of hearing aid use with [employer] B90-M thin tube BTEs (Left # [id number], Right #[id number]) were fit with HE2 slim tubing and medium open domes. The patient reports difficulty hearing and bilateral tinnitus. The patient reports a noise-exposure history. He denies otalgia, otorrhea, aural pressure/fullness, previous aural surgeries, or vertiginous balance issues. An otoscopic view revealed the ear canals were free of excessive cerumen. Tympanometry results, pure-tone air and bone thresholds, speech office receptionist thresholds, and word recgonition scores were obtained. The audiometric test results were stored via [employer] audiogram module. Testing was performed in [place]. Tympanometry revealed Jerger Type A tympangorams in each ear which is consistent with normal middle-ear mobility and pressure. Pure-tone air and bone conduction thresholds revealed a bilateral sensorineural hearing loss. Word recognition scores (NU-6 Ordered by Difficulty) were 90% in the right ear and 90% in the left ear. His current hearing aids were reprogrammed based on today's test: NAL-NL2 fitting formula changed to APD. Binaural hearing aids are recommended for this [place]. Hearing aids will likely be of significant benefit allowing for an improvement in auditory lifestyle. Today's results and recommendations were reviewed with the patient. Realistic expectations were discussed and it was agreed that JUAN CARLOS rechargeable hearing aids would be [facility]. The patient will return to the [facility] for a hearing aid fitting (HAF) appointment. /xena/ Mike Crowe Facility Coordinator Signed: 08/06/2024 14:32 Receipt Acknowledged By: 08/10/2024 11:31 /anne marie MADDOX HARMONIC ANALYST 08/11/2024 15:52 /xena/ TIFF SIDDIQUI 08/10/2024 ADDENDUM STATUS: COMPLETED Voice mail was left for patient to please call Telehealth Scheduling to schedule appointment. Patient no contact letter mailed. RT PID date 08/27/2024 will be Dispositioned 08/24/2024 if no response by patient on contact attempts to schedule appointment. /anne marie MADDOX HARMONIC ANALYST Signed: 08/10/2024 11:31 08/11/2024 ADDENDUM STATUS: COMPLETED This veterans WU's have arrived at the [facility] and will be stored in room 142. /es/ APURVA SANDRA LPN LPN Signed: 08/11/2024 14:16 10/27/2024 ADDENDUM STATUS: COMPLETED [place] does have hearing aids here still. will wait for provider to address /xena/ NARESH TEJADA LPN Signed: 10/27/2024 15:49 DARIN MADDOX [facility] Aug 06, 2024 01:42 PM AUDIOLOGY DIAGNOST IC STUDY NOTE: LOCAL TITLE: AUDIOLOGY/HEARING EVALUATION STANDARD TITLE: AUDIOLOGY DIAGNOSTIC STUDY NOTE DATE OF NOTE: AUG 06, 2024@13:42 ENTRY DATE: AUG 06, 2024@13:42:31 AUTHOR: DOMINGO MEDRANO COSIGNER: URGENCY: STATUS: COMPLETED AUDIOLOGY/HEARING EVALUATION Has ADDENDA The was seen for a comprehensive audiological evaluation and to discuss the potential treatment option of hearing aids. The patient has a reported history of hearing aid use with [employer] B90-M thin tube BTEs (Left # [id number], Right #[id number]) were fit with HE2 slim tubing and medium open domes. The patient reports difficulty hearing and bilateral tinnitus. The patient reports a noise-exposure history. He denies otalgia, otorrhea, aural pressure/fullness, previous aural surgeries, or vertiginous balance issues. An otoscopic view revealed the ear canals were free of excessive cerumen. Tympanometry results, pure-tone air and bone thresholds, speech office receptionist thresholds, and word recgonition scores were obtained. The audiometric test results were stored via [employer] audiogram module. Testing was performed in [place]. Tympanometry revealed Jerger Type A tympangorams in each ear which is consistent with normal middle-ear mobility and pressure. Pure-tone air and bone conduction thresholds revealed a bilateral sensorineural hearing loss. Word recognition scores (NU-6 Ordered by Difficulty) were 90% in the right ear and 90% in the left ear. His current hearing aids were reprogrammed based on today's test: NAL-NL2 fitting formula changed to APD. Binaural hearing aids are recommended for this . Hearing aids will likely be of significant benefit allowing for an improvement in auditory lifestyle. Today's results and recommendations were reviewed with the patient. Realistic expectations were discussed and it was agreed that JUAN CARLOS rechargeable hearing aids would be pursued via the [place]. The patient will return to the [facility] for a hearing aid fitting (HAF) appointment. /xena/ Mike Crowe Facility Coordinator Signed: 08/06/2024 14:32 Receipt Acknowledged By: 08/10/2024 11:31 /anne marie MADDOX HARMONIC ANALYST 08/11/2024 15:52 /xena/ TIFF SIDDIQUI 08/10/2024 ADDENDUM STATUS: COMPLETED Voice mail was left for patient to please call Telehealth Scheduling to schedule appointment. Patient no contact letter mailed. RTC PID date 08/27/2024 will be Dispositioned 08/24/2024 if no response by patient on contact attempts to schedule appointment. /xena/ DARIN MADDOX HARMONIC ANALYST Signed: 08/10/2024 11:31 08/11/2024 ADDENDUM STATUS: COMPLETED This veterans WU's have arrived at the [facility] and will be stored in room 142. /xena/ APURVA SANDRA LPN LPN Signed: 08/11/2024 14:16 10/27/2024 ADDENDUM STATUS: COMPLETED PPM message was entered for patient, the RTC was dispostioned on 08/24/24, please advise if patient is to be seen for HAF. Last Name: Jocy First Name: Gayle Last Four: 1006 Date of : Reason: Appointment Comment: to schedule a spr cvt for HAF Return Call: Yes /anne marie MADDOX HARMONIC ANALYST Signed: 10/27/2024 14:20 Receipt Acknowledged By: * AWAITING SIGNATURE * LOVE VERNON 10/27/2024 15:47 /xena/ NARESH TEJADA LPN * AWAITING SIGNATURE * APURVA SANDRA 10/27/2024 ADDENDUM STATUS: COMPLETED [place] does have hearing aids here still. will wait for provider to address /es/ NARESH TEJADA LPN Signed: 10/27/2024 15:49 DOMINGO MEDRANO
--- OUTSIDE RECORDS SUMMARY | 2024-10-30 08:55 | XMS_ITS | Encounter Summary ---
Author Organization [facility] Address [address] [place] [address] Care Team Providers Care Content Specialist Name Role Phone Tita Mccain APRN, NP-C Unavailable Dorian Christy MD Unavailable [phone] Dangelo Adames MD Primary Care Provider [phone] Yanick Jackson MD Unavailable [phone] Gokul Mayorga MD Unavailable [phone] Chante Lucas MD Unavailable [phone] Teri Jerome PA-C Unavailable [phone] Encounter Details Date Type Department Care Team (Late st Contact Info) Description 11/21/2022 Hospital Follow-up Call [facility] [address] [place] [address] Niki Crooks, RN Social History Tobacco Use Types Packs/Day Years [...] Sex Assigned at Male 08/09/2024 3:31 PM AUTOMATION/CONTROLS MANAGER Legal Sex Male 11:57 PM CDT Gender Identity Male 06/14/2019 10:46 AM AUTOMATION/CONTROLS MANAGER Sexual Orientation Not on file Occupation Industry Job Start Date Job End Date Not on file Not on file Not on file Not on file COVID-19 Exposure Response Date Recorded In the last 10 days, have yo u been in contact with someone who was confirmed or suspected to have Coronavirus/COVID-19? No / Unsure 11/15/2022 1:37 PM CDT documented as of this encounter Functional Status * Are you deaf or do you have serious difficulty hearing Answer Date of Assessment Author Status No 11/15/2022 2:13 PM CDT Latoya Townsend R N Active * Are you blind or do you have serious difficulty seeing, even when wearing glasses? Answer Date of Assessment Author Status No 11/15/2022 2:13 PM CDT Latoya Townsend R N Active * Do you have serious difficulty walking or climbing stairs? Answer Date of Assessment Author Status Yes 11/15/2022 2:13 PM CDT Latoya Townsend R N Active * Do you have difficulty dressing or bathing? Answer Date of Assessment Author Status No 11/15/2022 2:13 PM CDT Latoya Townsend R N Active * Because of a physical, mental, or emotional condition, do you have difficulty doing errands alone such as visiting a doctor's office or shopping? Answer Date of Assessment Author Status No 11/15/2022 2:13 PM CDT Latoya Townsend R N Active documented as of this encounter Mental Status * Because of a physical, mental, or emotional condition, do you have serious difficulty concentrating, remembering, or making decisions? Answer Entry Date Author Status No 11/15/2022 2:13 PM CDT Latoya Townsend R N Active documented in this encounter Plan of Treatment Not on file documented as of this encounter Visit Diagnoses Not on filedocumented in this encounter Additional Health Concerns Infection Onset Date Last Indicated Resolved Time COVID-19 Rule Out 08/09/2024 08/09/2024 08/09/2024 4:36 PM AUTOMATION/CONTROLS MANAGER documented as of this encounter Care Teams Content Specialist Relationship Specialty Start Date End Date Dangelo Adames MD [address] [place] [id number] PCP - General INTERNAL MEDICINE 10/24/17 Tita Mccain APRN, FINANCE INSURANCE MANAGER-C [address] [facility] [address] [place] [phone] NURSE PRACTITIONER 05/30/17 01/26/24 Dorian Christy MD [address] [place] [phone] CARDIOVASCULAR DISEASE 06/30/1710/05/ 4 Yanick Jackson MD [address] [address] PULMONARY DISEASE 10/28/17 Gokul Mayorga MD [address] [place] [address] EP Agricultural Equipment Mechanic CLINICAL CARDIAC ELECTROPHYSIOLOGY 08/27/21 Chante Lucas MD [address] [place] [address] INTERVENTIONAL CARDIOLOGY 11/20/2310/18 Teri Jerome PA-C [address] [place] [id number] Referring Physician PHYSICIAN AIRCRAFT MAINTENANCE MANAGER 10/17/24 documented as of this encounter
--- OUTSIDE RECORDS SUMMARY | 2024-10-30 08:55 | XMS_ITS | Continuity of Care Document ---
Author Name [facility] Organization [facility] Care Team Providers Care Cigar Head Perforator Name Role Phone [facility] Unavailable Unavailable Problems Combined list of problems from Department of Defense and Veterans Affairs facilities. It does not include entries that were removed or entered in error. Problem Status Onset Date Problem Type Date of Resolution Comments Source Actinic keratosis Active Condition [facility] AF - Atrial Fibrillation ([facility] [id number]) Active Condition [facility] Allergic rhinitis Active Condition [facility] Anemia Active Condition Jun 15 19 Entered By: DANGELO ADAMES Comment: EGD/colonscopy 05/2719 - polyps, left diverticulosis, int/ext hemorrhoids, ?Barrets - path pending PSYCHIATRIC Anxiety Disorder NOS Active Condition Mar 23, 2005 Entered By: ERJI LOVE Comment: and Depression. PCP rx. [facility] Atrial fibrillation Active Condition [facility] CHF - Congestive Heart Failure ([facility] [id number]) Active Condition Jul 09, 2019 Entered By: DANGELO ADAMES Comment: EF 35-40% 2021 Entered By: DANGELO ADAMES Comment: EF 40-45% 12/05 [facility] Chronic obstructive lung disease Active Condition [facility] Chronic Obstructive Pulmonary Disease Active Condition Jul 01 Entered By: REJI LOVE Comment: Mod.Severe, fev1 1.75->2.0. Quit Cigs [facility] Colonic Polyps Active Condition [facility] Congestive heart failure Active Condition [facility] Coronary arteriosclerosis Active Condition [facility] Coronary Artery Disease Active Condition Jul 01, 2002 Entered By: REJI LOVE Comment: s/p'97imi&2sten tsRCA; ss:fixed inf.defectJul 2004 Entered By: REJI LOVE Comment: , Exerc.Stress (no iso.) NormalApr 2005 Entered By: REJI LOVE Comment: [id number]->la rger imi defect +lve, no ischemia, ef=38% [facility] Diabetic neuropathy Active Condition PS[facility]IATRIC Exposure to Potentially Hazardous Substance ([facility] [id number]) Active Condition [facility] Family History of Malignant Neoplasm of Gastrointestinal Tract (ICD-9-CM V16.0) Active Condition [facility] Gastroesophageal reflux disease Active Condition [facility] Gastroesophageal reflux disease without esophagitis Active Condition [facility] Gastroesophageal Reflux Disorder Active Condition Jul 01, 2002 Entered By: REJI LOVE Comment: Hx esophageal ulcer [facility] Hyperlipidemia Active Condition [facility] Hyperlipidemia, Familial Combined Active Condition [facility] Hypertension Active Condition 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 Kidney stone Active Condition [facility] Long-term current use of anticoagulant Active Condition PSYCHIATRIC Mixed hyperlipidemia Active Condition [facility] Moderate chronic obstructive pulmonary disease Active Condition [facility]IC Obstructive sleep apnea syndrome Active Condition [facility] Osteoarthritis Active Condition Jun 162002 Entered By: REJI LOVE Comment: knees [facility] Parotid Neoplasms Active Condition Ja 2002 Entered By: REJI LOVE Comment: s/p'99 Lozano Rt.total parotidectomy B9 adenoma [facility] Raised prostate specific antigen Active Condition PSYCHIATRIC Restless Legs * (ICD-9-CM 333.99) Active Condition Apr 14 Entered By: REJI LOVE Comment: No rx, and not confirmed on Sleep study->cpap [facility] Routine Medical Exam Active Condition [facility] Sensorineural Hearing Loss Active Condition Jun 22, 2007 Entered By: REJI LOVE Comment: Audio (occup. noise exposed), [facility] Sensorineural hearing loss, bilateral Active Condition [facility] Sleep Apnea W/Hypersomnulence Active Condition Aug 29 Entered By: REJI LOVE Comment: Suspected, but no '06 or '07 followthru on sleep [id number] Entered By: REJI LOVE Comment: Study +MARY, rx CPAP [id number] trial [facility] Type 2 diabetes mellitus Active Condition PSYCHIATRIC Type 2 diabetes mellitus without complication Active Condition [facility] Weight loss Active Condition [facility] Abdominal Pain of the Right Upper Quadrant (ICD-9-CM 789.01) Inactive Condition 01/21/2006 Jan 21, 2006 Entered By: REJI LOVE Comment: Resolved, after [facility]ole [facility] Inactive Condition 03/15/2009 [facility] Cholelithiasis * (ICD-9-CM 574.20) Inactive Condition 01/21/2006 Jan 21 Entered By: REJI LOVE Comment: [facility] In[facility] Condition 11/01/2020 [facility] Hypokalemia Inactive Condition 11/01/2020 [facility] Personal History of Tobacco Use (ICD-9-CM V15.82) Inactive Condition 08/29/2006 [facility] Polyp of colon Inactive Condition 10/29/2021 [facility] Diagnosis: ICD-10-CM H90.3 Sensorineural hearing loss, bilateral Active Diagnosis [facility] Diagnosis: ICD-10-CM E11.9 Type 2 diabetes mellitus without complications Active Diagnosis [facility] Diagnosis: ICD-10-CM L57.0 Actinic keratosis Active Diagnosis [facility] Diagnosis: ICD-10-CM I48.91 Unspecified atrial fibrillation Active Diagnosis [facility] Diagnosis: ICD-10-CM J44.9 Chronic obstructive pulmonary disease, unspecified Active Diagnosis [facility] Diagnosis: ICD-10-CM L72.3 Sebaceous cyst Active Diagnosis [facility] Diagnosis: ICD-10-CM R97.20 Elevated prostate specific antigen [PSA] Active Diagnosis [facility] Diagnosis: ICD-10-CM Z57.5 Occupational exposure to toxic agents in other industries Active Diagnosis [facility] Diagnosis: ICD-10-CM R05.1 Acute cough Active Diagnosis [facility] Medications Combined list of outpatient medications from Department of Defense and Veterans Affairs facilities.Medications provided include 1) outpatient medications from the last 15 months, and 2) patient-reported medications. Medication Details Route Status Patient Instructions Prescription Expires Prescription Number Last Dispense Date Ordering Provider Order Date Order Qty Source ALBUTEROL 90MCG/ACTUA T (CFC-F) INHL,ORAL,8 .5GM DOSE COUNTER INHALE 2 PUFFS BY MOUTH FOUR TIMES A DAY NEEDED FOR BREATHIN G RESPIR ATORY (INHAL ATION) ACTIVE 06/18/2025 [id number] 5 JENNY ADAMES 2024 3 [facility] ALBUTEROL 90MCG/ACTUA T (CFC-F) INHL,ORAL,8 .5GM DOSE COUNTER INHALE 2 PUFFS BY MOUTH FOUR TIMES A DAY NEEDED FOR BREATHIN G RESPIR ATORY (INHAL ATION) [facility] [id number] 4 JENNY ADAMES 2023 3 [facility] APIXABAN 5MG TAB TAKE ONE TABLET BY MOUTH TWICE A DAY BLOOD THINNER ORAL ACTIVE 03/05/2025 [id number] 5 JENNY ADAMES 2023 180 [facility] APIXABAN 5MG TAB TAKE ONE TABLET BY MOUTH TWICE A DAY BLOOD THINNER ORAL [facility] 12/28/2023 [id number] 4 JENNY ADAMES 2022 180 [facility] ASPIRIN 325MG TAB,EC TAKE ONE TABLET BY MOUTH EVERY DAY ORAL ACTIVE Denny LOVE 2003 [facility] CHOLECALCIF BERE 25MCG (1,000UNIT) TAB TAKE ONE TABLET BY MOUTH ONCE A DAY ORAL ACTIVE CHELSEA CRISTINA 2009 [facility] FEXOFENADIN E HCL 180MG TAB TAKE ONE TABLET BY MOUTH DAILY FOR ALLERGIE S ORAL ACTIVE 06/29/2025 [id number] JENNY ADAMES 2024 90 [facility] FLUOROURACI L 5% CREAM,TOP APPLY THIN FILM TOPICALL Y TWICE A DAY APPLY FOR 2 WEEKS TOPICA L 07/28/2024 [id number] 5 JENNY ADAMES 2024 40 [facility] FLUTICASONE 100MCG/SALM ETEROL 50MCG INHL,ORAL,D ISKUS,60 INHALE 1 PUFF BY MOUTH TWICE A DAY FOR ASTHMA/C OPD. RINSE MOUTH AFTER USE. RINSE MOUTH AFER EACH USE. RESPIR ATORY (INHAL ATION) 01/29/2024 [id number] 4 JENNY ADAMES 2022 3 [facility] FLUTICASONE PROPIONATE 50MCG/SPRAY SOLN,NASAL, 16GM INSTILL 2 SPRAYS IN EACH NOSTRIL DAILY FOR NASAL ALLERGIE S NASAL ACTIVE 06/29/2025 [id number] FRIDAGA NICOLA HERRERA 2024 1 [facility] FUROSEMIDE 40MG TAB TAKE ONE TABLET BY MOUTH DAILY FOR BLOOD PRESSURE /WATER PILL ORAL ACTIVE 12/24/2024 [id number] 5 JENNY ADAMES 2023 90 [facility] FUROSEMIDE 40MG TAB TAKE ONE TABLET BY MOUTH DAILY FOR BLOOD PRESSURE /WATER PILL ORAL DISCONT INUED 12/28/2023 [id number] 4 JENNY ADAMES 2022 90 [facility] GABAPENTIN 600MG TAB TAKE ONE TABLET BY MOUTH TWICE A DAY ORAL ACTIVE 12/24/2024 [id number] 5 JENNY ADAMES 2023 180 [facility] GABAPENTIN 600MG TAB TAKE ONE TABLET BY MOUTH TWICE A DAY ORAL DISCONT INUED 12/28/2023 [id number] JENNY ADAMES 2022 180 [facility] METFORMIN HCL 1000MG TAB TAKE ONE TABLET BY MOUTH TWO TIMES A DAY BEFORE MORNING AND EVENING MEAL WITH FOOD - FOR DIABETES ORAL ACTIVE 12/24/2024 [id number] 5 JENNY ADAMES 2023 180 [facility] METFORMIN HCL 1000MG TAB TAKE ONE TABLET BY MOUTH TWO TIMES A DAY BEFORE MORNING AND EVENING MEAL WITH FOOD - FOR DIABETES ORAL DISCONT INUED 12/24/2023 [id number] 4 JENNY ADAMES 2022 180 [facility] METOPROLOL SUCCINATE 25MG TAB,SA TAKE ONE-HALF TABLET BY MOUTH EVERY MORNING FOR BLOOD PRESSURE ORAL DISCONT INUED 11/22/2023 [id number] JENNY ADAMES 2022 45 [facility] METOPROLOL SUCCINATE 25MG TAB,SA TAKE ONE-HALF TABLET BY MOUTH EVERY MORNING FOR BLOOD PRESSURE ORAL 08/05/2024 [id number] 5 JENNY ADAMES 2023 45 [facility] OMEGA-3-ACI D ETHYL ESTERS 1000MG CAP,ORAL TAKE 1 CAPSULE BY MOUTH DAILY ORAL ACTIVE JENNY ADAMES 2014 [facility] OMEPRAZOLE 20MG CAP,EC TAKE TWO CAPSULES BY MOUTH EVERY MORNING 30 MINUTES BEFORE BREAKFAS T FOR STOMACH ACID ORAL ACTIVE 06/29/2025 [id number] 5 JENNY ADAMES 2024 180 [facility] OMEPRAZOLE 20MG CAP,EC TAKE TWO CAPSULES BY MOUTH EVERY MORNING 30 MINUTES BEFORE BREAKFAS T FOR STOMACH ACID ORAL DISCONT INUED 06/25/2024 [id number] 5 JENNY ADAMES 2023 180 [facility] ROFLUMILAST 500MCG TAB TAKE ONE TABLET BY MOUTH EVERY DAY ORAL SUSPEND ED 01/23/2025 [id number] DRU COLEMAN 2023 30 [facility] SACUBITRIL 49MG/VALSAR GILLIS 51MG TAB TAKE 1 TABLET BY MOUTH TWICE A DAY FOR HEART FAILURE. ORAL ACTIVE 12/24/2024 [id number] 5 JENNY ADAMES 2023 180 [facility] SACUBITRIL 49MG/VALSAR GILLIS 51MG TAB TAKE 1 TABLET BY MOUTH TWICE A DAY FOR HEART FAILURE. ORAL DISCONT INUED 12/24/2023 [id number] 4 JENNY ADAMES 2022 180 [facility] SIMVASTATIN 40MG TAB TAKE ONE TABLET BY MOUTH AT BEDTIME AVOID GRAPEFRU IT CALL YOUR PROVIDER IF YOU HAVE MUSCLE PAIN, TENDERNE SS OR WEAKNESS - FOR CHOLESTE ROL AVOID GRAPEFRU IT CALL YOUR PROVIDER IF YOU HAVE MUSCLE PAIN, TENDERNE SS OR WEAKNESS - FOR CHOLESTE ROL ORAL ACTIVE 06/29/2025 [id number] 5 JENNY ADAMES 2024 90 [facility] SIMVASTATIN 40MG TAB TAKE ONE TABLET BY MOUTH AT BEDTIME AVOID GRAPEFRU IT CALL YOUR PROVIDER IF YOU HAVE MUSCLE PAIN, TENDERNE SS OR WEAKNESS - FOR CHOLESTE ROL AVOID GRAPEFRU IT CALL YOUR PROVIDER IF YOU HAVE MUSCLE PAIN, TENDERNE SS OR WEAKNESS - FOR CHOLESTE ROL ORAL DISCONT INUED 06/25/2024 [id number] 4 JENNY ADAMES 2023 90 [facility] SOTALOL HCL 120MG TAB TAKE ONE TABLET BY MOUTH TWICE A DAY ORAL ACTIVE 12/24/2024 [id number] 5 JENNY ADAMES 2023 180 [facility] SOTALOL HCL 120MG TAB TAKE ONE TABLET BY MOUTH TWICE A DAY ORAL DISCONT INUED 11/22/2023 [id number] JENNY ADAMES 2022 180 [facility] SPIRONOLACT ONE 25MG TAB TAKE ONE-HALF TABLET BY MOUTH DAILY FOR BLOOD PRESSURE /WATER PILL ORAL ACTIVE 12/24/2024 [id number] 5 JENNY ADAMES 2023 45 [facility] SPIRONOLACT ONE 25MG TAB TAKE ONE-HALF TABLET BY MOUTH DAILY FOR BLOOD PRESSURE /WATER PILL ORAL DISCONT INUED 12/28/2023 [id number] JENNY ADAMES 2022 45 [facility] TAMSULOSIN HCL 0.4MG CAP TAKE ONE CAPSULE BY MOUTH EVERY DAY TAKE 30 MINUTES AFTER A MEAL ORAL ACTIVE 11/23/2024 [id number] PARISA,JA Criss 2024 90 [facility] TIOTROPIUM 18MCG CAP,INHL,30 INHALE CONTENTS OF ONE CAPSULE BY INHALER (AFTER INSERTIN G CAPSULE IN DEVICE) BY MOUTH EVERY DAY FOR INHALATI ON ONLY, DO NOT SWALLOW. FOR BREATHIN G RESPIR ATORY (INHAL ATION) DISCONT INUED 06/25/2024 [id number] JENNY ADAMES 2023 3 [facility] TIOTROPIUM 2.5MCG/ACTU AT INHL,ORAL,6 0D,4GM INHALE TWO INHALATI ONS BY MOUTH EVERY DAY MAX OF TWO INHALATI ONS IN 24 HOURS. RESPIR ATORY (INHAL ATION) ACTIVE 06/18/2025 [id number] 5 JENNY ADAMES 2024 3 [facility] TIOTROPIUM 2.5MCG/ACTU AT INHL,ORAL,6 0D,4GM INHALE TWO INHALATI ONS BY MOUTH EVERY DAY MAX OF TWO INHALATI ONS IN 24 HOURS. RESPIR ATORY (INHAL ATION) DISCONT INUED 06/25/2024 [id number] JENNY ADAMES 2023 3 [facility] Allergies, Adverse Reactions, Alerts Combined list of allergies from Department of Defense and Veterans Affairs facilities. It does not include entries that were removed or entered in error. Substance Category Reaction Severity Reaction type Status Date Reported Comments Source LISINOPRIL Propensity to adverse reactions to drug (finding) Anxiety, Low blood pressure, Drowsy, Itching of eye active 1 [facility] NIASPAN 500MG ER TABLET Propensity to adverse reactions to drug (finding) Flushing active 0 [facility] PNEUMOVAX 23 Propensity to adverse reactions to drug (finding) SWELLING (NON-SPEC IFIC) active 4 [facility] Immunizations Combined list of available immunizations from the Department of Defense and Veterans Affairs facilities. Immunization Series Date Given Administered By Site Reaction Lot Number CVX Code Drug Fountain Dispenser Status Comments Source INFLUENZA, HIGH-DOSE, TRIVALENT, PF 2024 HABIB,SONJA L RIGHT DELTO ID [id number] 135 complet ed [facility] TDAP 2023 HABIB,SONJA L LEFT DELTO ID [id number] 115 complet ed [facility] INFLUENZA, HIGH-DOSE, QUADRIVALENT 2023 HABIB,SONJA L LEFT DELTO ID [id number] 197 complet ed [facility] INFLUENZA, SPLIT VIRUS, TRIVALENT, PRESERVATIVE 1 2023 141 complet ed HISTORICA L INFORMATI ON - FROM OTHER [facility] ZOSTER RECOMBINANT 2 2022 EMILIA SANDOVAL RIGHT DELTO ID [id number] 187 complet ed [facility] PNEUMOCOCCAL CONJUGATE PCV20, POLYSACCHARID E [id number] CONJUGATE, ADJUVANT, PF 2022 JOSE PETER LEFT DELTO ID [id number] 216 complet ed [facility] ZOSTER RECOMBINANT 2022 JOSE PETER LEFT DELTO ID [id number] 187 complet ed [facility] INFLUENZA VACCINE, QUADRIVALENT, ADJUVANTED 2021 JOE ANTHONY RIGHT DELTO ID [id number] 205 complet ed [facility] INFLUENZA, INJECTABLE, QUADRIVALENT, PRESERVATIVE FREE 2021 150 complet ed [facility] COVID-19 (MODERNA), MRNA, LNP-S, PF, 100 MCG/0.5 ML DOSE 3 2020 207 complet ed MOD; [id number]; 2 [facility] COVID-19 (MODERNA), MRNA, LNP-S, PF, 100 MCG/0.5 ML DOSE 2 2020 207 complet ed MOD; [id number]; 1 [facility] COVID-19 (MODERNA), MRNA, LNP-S, PF, 100 MCG/0.5 ML DOSE 1 2020 207 complet ed MOD; [id number]; 1 [facility] COVID-19 (MODERNA), MRNA, LNP-S, PF, 100 MCG/0.5ML DOSE OR 50 MCG/0.25ML DOSE 1 2020 207 complet ed HISTORICA L INFORMATI ON - FROM OTHER REGISTRY, PSYCHIATRIC INFLUENZA, UNSPECIFIED FORMULATION 2019 88 complet ed PSYCHIATRIC PNEUMOCOCCAL POLYSACCHARID E PPV23 2019 33 complet ed [facility] PNEUMOCOCCAL POLYSACCHARID E PPV23 2019 33 complet ed [facility] INFLUENZA, TRIVALENT, ADJUVANTED 2018 168 complet ed PSYCHIATRIC INFLUENZA, TRIVALENT, ADJUVANTED 2017 168 complet ed PSYCHIATRIC INFLUENZA, INJECTABLE, QUADRIVALENT 2 2016 158 complet ed HISTORICA L INFORMATI ON - FROM OTHER REGISTRY, PSYCHIATRIC INFLUENZA, SEASONAL, INJECTABLE, PRESERVATIVE FREE 2016 140 complet ed PSYCHIATRIC INFLUENZA, SEASONAL, INJECTABLE, PRESERVATIVE FREE 2015 140 complet ed PSY[facility]IAT[facility]IC ZOSTER LIVE 2014 121 complet ed [facility] INFLUENZA, INJECTABLE, QUADRIVALENT, PRESERVATIVE FREE 1 2014 150 complet ed HISTORICA L INFORMATI ON - FROM OTHER REGISTRY, PSYCHIATRIC INFLUENZA, UNSPECIFIED FORMULATION 2014 88 complet ed PSYCHIATRIC INFLUENZA, UNSPECIFIED FORMULATION 2013 88 complet ed PSYCHIATRIC INFLUENZA, UNSPECIFIED FORMULATION 2011 88 complet ed [facility] TD(ADULT) UNSPECIFIED FORMULATION 2011 139 complet ed Right Deltoid [facility] INFLUENZA, UNSPECIFIED FORMULATION 2010 88 complet ed [facility] INFLUENZA, UNSPECIFIED FORMULATION 2009 88 complet ed [facility] TDAP 2009 115 complet ed PSYCHIATRIC INFLUENZA, UNSPECIFIED FORMULATION 2009 88 complet ed [facility] NOVEL INFLUENZA-H1N 1-09, ALL FORMULATIONS 2008 128 complet ed [facility] PNEUMOCOCCAL, UNSPECIFIED FORMULATION 2008 109 complet ed [facility] INFLUENZA, UNSPECIFIED FORMULATION 2008 88 complet ed [facility] ZOSTER LIVE 2008 121 complet ed [facility] INFLUENZA, UNSPECIFIED FORMULATION 2007 88 complet ed [facility] INFLUENZA, UNSPECIFIED FORMULATION 2006 88 complet ed [facility] INFLUENZA, UNSPECIFIED FORMULATION 2005 88 complet ed [facility] INFLUENZA, UNSPECIFIED FORMULATION 2004 88 complet ed [facility] INFLUENZA (HISTORICAL) 2003 88 complet ed [facility] PNEUMOCOCCAL, UNSPECIFIED FORMULATION 2003 109 complet ed [facility] INFLUENZA, UNSPECIFIED FORMULATION 2002 88 complet ed [facility] TD(ADULT) UNSPECIFIED FORMULATION 2001 139 complet ed [facility] INFLUENZA (HISTORICAL) 2001 88 complet ed [facility] INFLUENZA, UNSPECIFIED FORMULATION 2000 88 complet ed [facility] Results Combined list of recent chemistry, hematology and other laboratory results from Department of Defense and Veterans Affairs, ranging from 15 months to all on record, depending upon the facility. Order Name Results Value Reference Range Date Interpretation Specimen Comments Source THYROID CASCADE PANEL THYROTROPIN [UNITS/VOLU ME] IN SERUM OR PLASMA 0.824 u[IU]/ mL 0.550 - 4.780 06/14 Specimen Type: SERUM Comment: PSA was performed on the [employer] Immunoassay Analyzer. Ordering Provider: DESTIN ADAMES Report Released Date/Time: Jun 01, 2024 03:00 PM Reporting Lab: [place] [id number] [facility] [phone] Performing Lab: [address] [phone] [facility] A1C % HEMOGLOBIN A1C/HEMOGLO BIN.TOTAL IN BLOOD 5.8 0.0 - 5.6 06/14 H Specimen Type: BLOOD Comment: Normal: < or = 5.6% Pre-diabete s: 5.7-6.4% Diabetes Mellitus: > or = 6.5% Values obtained from A1C measurement s can vary. For typical A1C assays, a reported value of 7.0 could actually be between 6.72 and 7.28 if measured by a reference method. A reported value of 9.0 could actually be between 8.73 and 9.27. Ref: http://www. ngsp.org/[place] Pdata.asp Ordering Provider: DESTIN ADAMES Report Released Date/Time: Jun 01, 2024 03:00 PM Reporting Lab: [address] [phone] Performing Lab: [address] [phone] [facility] PSA TOTAL EIA PROSTATE SPECIFIC AG [MASS/VOLUM E] IN SERUM OR PLASMA 7.66 ng/mL 0.00 - 4.00 06/14 H Specimen Type: SERUM Comment: PSA was performed on the [employer] Immunoassay Analyzer. Ordering Provider: DESTIN ADAMES Report Released Date/Time: Jun 01, 2024 03:00 PM Reporting Lab: [address] [phone] Performing Lab: [address] [phone] [facility] LIPID PNL CHOLESTEROL IN HDL [MASS/VOLUM E] IN SERUM OR PLASMA 28 mg/dL 60 06/14 L Specimen Type: PLASMA Comment: Low-risk levels (desirable) <200 mg/dL Moderate-ri sk levels (borderline ) 200-239 mg/dL High-risk levels: >= 240 mg/dL Normal: <150 mg/dL -Borderline High: 150-199 mg/dL -High: 200-499 mg/dL -Very High: >500 mg/dL eGFR was calculated using the CKD-EPI Creatinine (2020) equation. Optimal: <100 mg/dL -Near Optimal/Abo ve Optimal: 100-129 mg/dL -Borderline High: 130-159 mg/dL -High: 160-189 mg/dL -Very High: >=190 mg/dL Ordering Provider: DESTIN ADAMES Report Released Date/Time: Jun 01, 2024 03:00 PM Reporting Lab: [address] [phone] Performing Lab: PSYCHIATRIC [address] [place] [phone] [facility] LIPID PNL TRIGLYCERID E [MASS/VOLUM E] IN SERUM OR PLASMA 189 mg/dL 06/14 H Specimen Type: PLASMA Comment: Low-risk levels (desirable) <200 mg/dL Moderate-ri sk levels (borderline ) 200-239 mg/dL High-risk levels: >= 240 mg/dL Normal: <150 mg/dL -Borderline High: 150-199 mg/dL -High: 200-499 mg/dL -Very High: >500 mg/dL eGFR was calculated using the CKD-EPI Creatinine (2020) equation. Optimal: <100 mg/dL -Near Optimal/Abo ve Optimal: 100-129 mg/dL -Borderline High: 130-159 mg/dL -High: 160-189 mg/dL -Very High: >=190 mg/dL Ordering Provider: DESTIN ADAMES Report Released Date/Time: Jun 01, 2024 03:00 PM Reporting Lab: [address] [phone] Performing Lab: [address] [phone] [facility] LIPID PNL CHOLESTEROL IN LDL [MASS/VOLUM E] IN SERUM OR PLASMA BY DIRECT ASSAY [facility] 06/14 Specimen Type: PLASMA Comment: Low-risk levels (desirable) <200 mg/dL Moderate-ri sk levels (borderline ) 200-239 mg/dL High-risk levels: >= 240 mg/dL Normal: <150 mg/dL -Borderline High: 150-199 mg/dL -High: 200-499 mg/dL -Very High: >500 mg/dL eGFR was calculated using the CKD-EPI Creatinine (2020) equation. Optimal: <100 mg/dL -Near Optimal/Abo ve Optimal: 100-129 mg/dL -Borderline High: 130-159 mg/dL -High: 160-189 mg/dL -Very High: >=190 mg/dL Ordering Provider: DESTIN ADAMES Report Released Date/Time: Jun 01, 2024 03:00 PM Reporting Lab: [address] [address] Performing Lab: [place] [phone] [facility] LIPID PNL CHOLESTEROL [MASS/VOLUM E] IN SERUM OR PLASMA 89 mg/dL 06/14 Specimen Type: PLASMA Comment: Low-risk levels (desirable) <200 mg/dL Moderate-ri sk levels (borderline ) 200-239 mg/dL High-risk levels: >= 240 mg/dL Normal: <150 mg/dL -Borderline High: 150-199 mg/dL -High: 200-499 mg/dL -Very High: >500 mg/dL eGFR was calculated using the CKD-EPI Creatinine (2020) equation. Optimal: <100 mg/dL -Near Optimal/Abo ve Optimal: 100-129 mg/dL -Borderline High: 130-159 mg/dL -High: 160-189 mg/dL -Very High: >=190 mg/dL Ordering Provider: DESTIN ADAMES Report Released Date/Time: Jun 01, 2024 03:00 PM Reporting Lab: [place] [phone] Performing Lab: [place] [phone] [facility] LIPID PNL CHOLESTEROL IN LDL [MASS/VOLUM E] IN SERUM OR PLASMA BY CALCULATION 23 mg/dL 06/14 Specimen Type: PLASMA Comment: Low-risk levels (desirable) <200 mg/dL Moderate-ri sk levels (borderline ) 200-239 mg/dL High-risk levels: >= 240 mg/dL Normal: <150 mg/dL -Borderline High: 150-199 mg/dL -High: 200-499 mg/dL -Very High: >500 mg/dL eGFR was calculated using the CKD-EPI Creatinine (2020) equation. Optimal: <100 mg/dL -Near Optimal/Abo ve Optimal: 100-129 mg/dL -Borderline High: 130-159 mg/dL -High: 160-189 mg/dL -Very High: >=190 mg/dL Ordering Provider: DESTIN ADAMES Report Released Date/Time: Jun 01, 2024 03:00 PM Reporting Lab: [address] [id number] Performing Lab: [address] [id number] [facility] COMPREHEN SIVE PNL ANION GAP IN SERUM OR PLASMA 8 mmol/L 5 - 15 06/14 Specimen Type: PLASMA Comment: Low-risk levels (desirable) <200 mg/dL Moderate-ri sk levels (borderline ) 200-239 mg/dL High-risk levels: >= 240 mg/dL Normal: <150 mg/dL -Borderline High: 150-199 mg/dL -High: 200-499 mg/dL -Very High: >500 mg/dL eGFR was calculated using the CKD-EPI Creatinine (2020) equation. Optimal: <100 mg/dL -Near Optimal/Abo ve Optimal: 100-129 mg/dL -Borderline High: 130-159 mg/dL -High: 160-189 mg/dL -Very High: >=190 mg/dL Ordering Provider: DESTIN ADAMES Report Released Date/Time: Jun 01, 2024 03:00 PM Reporting Lab: [address] [address] Performing Lab: [address] [address] [facility] COMPREHEN SIVE PNL GLOMERULAR FILTRATION RATE/1.73 SQ M.PREDICTED [VOLUME RATE/AREA] IN SERUM, PLASMA OR BLOOD BY CREATININE- BASED FORMULA (CKD-EPI 2020) 92 mL/min /{1.73 _m2} 60 06/14 Specimen Type: PLASMA Comment: Low-risk levels (desirable) <200 mg/dL Moderate-ri sk levels (borderline ) 200-239 mg/dL High-risk levels: >= 240 mg/dL Normal: <150 mg/dL -Borderline High: 150-199 mg/dL -High: 200-499 mg/dL -Very High: >500 mg/dL eGFR was calculated using the CKD-EPI Creatinine (2020) equation. Optimal: <100 mg/dL -Near Optimal/Abo ve Optimal: 100-129 mg/dL -Borderline High: 130-159 mg/dL -High: 160-189 mg/dL -Very High: >=190 mg/dL Ordering Provider: DESTIN ADAMES Report Released Date/Time: Jun 01, 2024 03:00 PM Reporting Lab: [address] [address] Performing Lab: [address] [address] [facility] COMPREHEN SIVE PNL GLUCOSE [MASS/VOLUM E] IN SERUM OR PLASMA 113 mg/dL 70 - 99 06/14 H Specimen Type: PLASMA Comment: Low-risk levels (desirable) <200 mg/dL Moderate-ri sk levels (borderline ) 200-239 mg/dL High-risk levels: >= 240 mg/dL Normal: <150 mg/dL -Borderline High: 150-199 mg/dL -High: 200-499 mg/dL -Very High: >500 mg/dL eGFR was calculated using the CKD-EPI Creatinine (2020) equation. Optimal: <100 mg/dL -Near Optimal/Abo ve Optimal: 100-129 mg/dL -Borderline High: 130-159 mg/dL -High: 160-189 mg/dL -Very High: >=190 mg/dL Ordering Provider: DESTIN ADAMES Report Released Date/Time: Jun 01, 2024 03:00 PM Reporting Lab: [address] [address] Performing Lab: [address] [address] [facility] COMPREHEN SIVE PNL POTASSIUM [MOLES/VOLU ME] IN SERUM OR PLASMA 3.6 mmol/L 3.5 - 4.7 06/14 Specimen Type: PLASMA Comment: Low-risk levels (d [id number]|2024-10-30 08:55:00|2024-10-30 03:54:00|XMS_ITS|BKG DAEMON|External Medical Summaries|[id number]|" [place] OFFICE O/P EST MOD 30 MIN [facility] Encounter Summary Created on: October 30, 2024 GAYLE ZARATE : 1945 Sex: Male Author Name [facility] Address [address] [place] [id number] Care Team Providers Care Cigar Head Perforator Name Role Phone ALEJANDRO CRAMER Primary Care Provider Unavailabl e DANGELO ADAMES Primary Care Provider Unavailabl e Insurance [...] PART B Dec 14, 2008 PART B [id number] ORALIAMIS SANDERSON HN PATIENT MEDICARE (WNR) MEDICARE (M) PART B Dec 14, 2008 PART B [id number] ORALIAMIS SANDERSON HN PATIENT MEDICARE (WNR) MEDICARE (M) PART B Dec 14, 2008 PART B [id number] MIS ZARATE HN PATIENT MEDICARE (WNR) MEDICARE (M) PART B Dec 14, 2008 PART B [id number] ORALIAMARIA EMIS HN PATIENT MEDICARE (WNR) MEDICARE (M) PART A Sep 14, 2006 PART A [id number] ORALIAMIS SANDERSON HN PATIENT MEDICARE (WNR) MEDICARE (M) PART A Sep 14, 2006 PART A [id number] ELLIOTMIS HN PATIENT MEDICARE (WNR) MEDICARE (M) PART A Sep 14, 2006 PART A [id number] ELLIOTMIS HN PATIENT MEDICARE (WNR) MEDICARE (M) PART A Sep 14, 2006 PART A [id number] ELLIOTMIS HN PATIENT MEDICARE PART D (WNR) PRESCRIPT ION PART D Jun 16, 2014 PART D [id number] MIS ZARATE PATIENT Selected Encounter This section includes the information on record at DC for the Encounter. Date/Time Encounter Type Encounter Description Reason Provider Source Jun 28, 2024 03:00 PM OFFICE O/P EST MOD 30 MIN PRIMARY CARE/MEDICINE ICD-10-CM L57.0 Actinic keratosis [facility] Encounter Template Text not used by DC Assessments - Encounter Diagnoses This section includes the primary and secondary diagnoses documented for the Encounter. Date/Time Primary/Secondary Diagnosis Diagnosis Name Provider Source Jun 28, 2024 03:46 PM PRIMARY Actinic keratosis [facility] Jun 28, 2024 03:46 PM SECONDARY Abnormal weight loss [facility] Jun 28, 2024 03:46 PM SECONDARY Allergic rhinitis, unspecified [facility] Jun 28, 2024 03:46 PM SECONDARY Chronic obstructive pulmonary disease, unspecified [facility] Jun 28, 2024 03:46 PM SECONDARY Elevated prostate specific antigen [PSA] [facility] Jun 28, 2024 03:46 PM SECONDARY Encounter for immunization HABIB,SONJA Denny [facility] Jun 28, 2024 03:46 PM SECONDARY Essential (primary) hypertension [facility] Jun 28, 2024 03:46 PM SECONDARY Heart failure, unspecified [facility] Jun 28, 2024 03:46 PM SECONDARY Mixed hyperlipidemia [facility] Jun 28, 2024 03:46 PM SECONDARY Sensorineural hearing loss, bilateral [facility] Jun 28, 2024 03:46 PM SECONDARY Type 2 diabetes mellitus with diabetic neuropathy, unsp [facility] Jun 28, 2024 03:46 PM SECONDARY Type 2 diabetes mellitus without complications [facility] Jun 28, 2024 03:46 PM SECONDARY Unspecified atrial fibrillation [facility] Plan of Treatment: Future Appointments (+ 6 months) and Future Tests (+/- 45 days) The Plan of Treatment section includes future care activities for the patient from all [place] treatmentfacilities. This section includes future appointments and future orders which are active, pending or scheduled. Future Appointments This section includes appointments that were scheduled to occur 6 months from the date of the Encounter, up to a maximum of 20 appointments. The data comes from all [facility]. Appointment Date/Time Appointment Type Appointme nt Facility Name Jul 21, 2024 11:00 AM AMBULATORY - NONE [facility] Aug 06, 2024 02:00 PM AMBULATORY - REHAB [facility] Aug 25, 2024 02:00 PM AMBULATORY - NONE [facility] Sep 27, 2024 02:15 PM AMBULATORY - NONE [facility] October 27, 2024 02:45 PM AMBULATORY - NONE [facility] Dec 20, 2024 02:30 PM AMBULATORY - NONE [facility] Dec 21, 2024 02:00 PM AMBULATORY - NONE [facility] Active, Pending, and Scheduled Orders This section includes a listing of several types of active, pending, and scheduled orders, including clinic medications orders, diagnostic test orders, procedure orders and consult orders; where the start date of the order is 45 days before the date of the Encounter or 45 days after the date of theEncounter. The data comes from all [facility]. Test Date/Time Test Type Test Details Facility Name Jun 01, 2024 12:00 AM Laboratory - Chemi stry Order URINE ALBUMIN/CREAT (RAND URINE) URINE (MICRO ALBUMIN) SP ONCE [facility] Lab Results: +/- 30 days of the encounter This section includes the Chemistry and Hematology Lab Results on record with DC for the patient. Radiology Reports and Pathology Reports are provided separately, in subsequent sections. Lab Results This section contains the Chemistry/Hematology Results that were resulted 30 days before or 30 daysafter the date of the Encounter. Date/Time Source Result Type Result - Unit Interpretation Reference Range Specimen Type Comment Jun 14, 2024 03:03 PM [facility] THYROID CASCADE PANEL SERUM Specimen Type: SERUM Comment: PSA was performed on the [employer] Immunoassay Analyzer. Ordering Provider: DANGELO ADAMES Report Released Date/Time: Jun 01, 2024 03:00 PM Reporting Lab: PSYCHIATRIC [address] [facility] [address] Performing Lab: [place] [id number] [facility] [address] TSH3 ULTRA EIA 0.824 u[IU]/mL 0.550-4.78 0 Jun 14, 2024 03:03 PM [facility] A1C % BLOOD Specimen Type: BLOOD [...] and 9.27. Ref: http://www.ngsp.org/CAPdata.asp Ordering Provider: DANGELO ADAMES Report Released Date/Time: Jun 01, 2024 03:00 PM Reporting Lab: [address] [address] Performing Lab: [address] [address] A1C % 5.8 H 0.0-5.6 Jun 14, 2024 03:03 PM [facility] PSA TOTAL EIA SERUM Specimen T ype: SERUM Comment: PSA was performed on the [employer] Immunoassay Analyzer. Ordering Provider: DANGELO ADAMES Report Released Date/Time: Jun 01, 2024 03:00 PM Reporting Lab: [address] [address] Performing Lab: [address] [address] PSA TOTAL EIA 7.66 ng/mL H 0.00-4.00 Jun 14, 2024 03:03 PM [facility] LIPID PNL PLASMA Specimen T ype: PLASMA Comment: Low-risk levels (desirable) <200 mg/dL Moderate-risk levels (borderline) 200-239 mg/dL High-risk levels: >= 240 mg/dL Normal: <150 mg/dL -Borderline High: 150-199 mg/dL -High: 200-499 mg/dL -Very High: >500 mg/dL eGFR was calculated using the CKD-EPI Creatinine (2020) equation. Optimal: <100 mg/dL -Near Optimal/Above Optimal: 100-129 mg/dL -Borderline High: 130-159 mg/dL -High: 160-189 mg/dL -Very High: >=190 mg/dL Ordering Provider: DANGELO ADAMES Report Released Date/Time: Jun 01, 2024 03:00 PM Reporting Lab: [address] [address] Performing Lab: [address] [address] DIR. HDL 28 mg/dL L >=60 TRIGLYCERIDES 189 mg/dL H See Comment DIR LDL canc CHOL 89 mg/dL See Comment LDL (CALCULATED) 23 mg/dL See Comment Jun 14, 2024 03:03 PM [facility] COMPREHENSIVE PNL PLASMA Specime n Type: PLASMA Comment: Low-risk levels (desirable) <200 mg/dL Moderate-risk levels (borderline) 200-239 mg/dL High-risk levels: >= 240 mg/dL Normal: <150 mg/dL -Borderline High: 150-199 mg/dL -High: 200-499 mg/dL -Very High: >500 mg/dL eGFR was calculated using the CKD-EPI Creatinine (2020) equation. Optimal: <100 mg/dL -Near Optimal/Above Optimal: 100-129 mg/dL -Borderline High: 130-159 mg/dL -High: 160-189 mg/dL -Very High: >=190 mg/dL Ordering Provider: DANGELO ADAMES Report Released Date/Time: Jun 01, 2024 03:00 PM Reporting Lab: [address] [address] Performing Lab: [address] [address] ANION GAP 8 mmol/L 5-15 EGFR 92 mL/min/{1.73_m2} >= 60 GLUCOSE 113 mg/dL H 70-99 POTASSIUM 3.6 mmol/L 3.5-4.7 SODIUM 141 mmol/L 136-145 BILI,TOTAL 1.2 mg/dL 0.2-1.2 PROTEIN, TOTL 7.5 g/dL 5.7-8.2 ALBUMIN 4.5 g/dL 3.4-5.0 ALKAL PHOS 111 U/L 45-117 ALT 31 U/L 10-65 AST 18 U/L 10-37 UREA NITROGEN 10 mg/dL 7-21 CALCIUM, TOTAL 10.2 mg/dL 8.7-10.4 CO2 30 mmol/L 21-32 CHLORIDE 103 mmol/L 98-109 CREATININE 0.75 mg/dL 0.73-1.18 Jun 14, 2024 03:03 PM [facility] CBC W/DIFF BLOOD Specimen T ype: BLOOD No comment entered. Ordering Provider: DANGELO ADAMES Report Released Date/Time: Jun 01, 2024 03:00 PM Reporting Lab: PSYCHIATRIC [address] [facility] [address] Performing Lab: PSYCHIATRIC [address] [facility] [address] WBC 9.1 10*3/uL 4.0-11.0 RBC 5.16 10*6/uL 4.20-5.70 HGB 15.4 g/dL 13.0-17.0 HCT 45.9 40.0-51.0 MCV 89.0 fL 82.0-99.0 MCH 29.8 pg 27.0-34.0 MCHC 33.6 g/dL 31.0-37.0 MPV 9.6 fL 8.0-12.[address] 322 10*3/uL 130-400 RDW-CV 12.2 < 15.0 NEUTROPHILS% 72.3 LYMPHS% 18.2 MONOS% 7.6 EOS% 0.7 BASOS% 0.9 IG% 0.3 NEUTROPHILS# 6.6 10*3/uL 1.5-8.0 LYMPHS# 1.7 10*3/uL 1.0-4.0 MONOS# 0.7 10*3/uL 0.2-1.0 EOS# 0.1 10*3/uL 0.0-0.4 BASOS# 0.1 10*3/uL 0.0-0.2 IG# <0.1 10*3/uL 0.0-0.5 NRBC% 0.0 /100{WBCs} 0.0-0.2 NRBC# <0.01 10*3/uL 0.00-0.01 Vital Signs: All taken on the encounter date This section contains inpatient and outpatient Vital Signs collected on the date of the Encounter. Date/Time Temperature Pulse Blood Pressure Respiratory Rate SP02 Pain Height Weight Body Mass Index Source Jun 28, 2024 02:55 PM 97.3 59 114/54 16 95 0 172 25 [facility] Immunizations: All administered on the encounter date This section contains immunizations associated to the Encounter. Immunization Series Date Issued Administered By Site Reaction Lot Number CVX Code Drug Fountain Dispenser Comment(s) Source INFLUENZA, HIGH-DOSE, TRIVALENT, PF Jun 28, 2024 SONJA ROSALES RIGHT DELTO ID [id number] ZULEYMAOFI [facility] Social History: Smoking Status (Most current) and Tobacco Use (All prior to encounter date) This section includes the most current, and the historical, smoking and tobacco- related health factors from the [place] facility where the Encounter took place. Current Smoking Status This section includes the most current smoking, or tobacco-related health factor, from the [place] facility where the Encounter took place. Date/Time Current Smoking Status Comment Facil it Dec 24, 2023 02:30 PM VA-TOBACCO QUIT 15 YRS OR MORE [facility] Tobacco Use History This section includes a history of the smoking, or tobacco-related health factors, that were collected on or before the date of the Encounter. The data comes from the [place] facility where the Encounter took place. Date/Time Smoking Status/Tobac co Use Comment Facility Dec 24, 2023 02:30 PM VA-TOBACCO QUIT 15 YRS OR MORE [facility] Dec 27, 2022 02:30 PM VA-TOBACCO FORMER USER [facility] Dec 27, 2022 02:30 PM VA-TOBACCO QUIT 15 YRS OR MORE [facility] October 29, 2021 02:30 PM VA-TOBACCO FORMER USER [facility] October 29, 2021 02:30 PM VA-TOBACCO QUIT 15 YRS OR MORE [facility] November 01, 2020 03:30 PM VA-TOBACCO FORMER USER [facility] November 01, 2020 03:30 PM VA-TOBACCO QUIT 15 YRS OR MORE [facility] Jul 08, 2019 01:23 PM VA-TOBACCO FORMER USER [facility] Jul 08, 2019 01:23 PM VA-TOBACCO QUIT 15 YRS OR MORE [facility] Sep 11, 2018 09:33 AM VA-TOBACCO FORMER USER [facility] Sep 11, 2018 09:33 AM VA-TOBACCO QUIT 15 YRS OR MORE [facility] Aug 25, 2017 01:31 PM QUIT TOBACCO >7 YEARS AGO quit 16 years ago [facility] Sep 02, 2016 09:31 AM QUIT TOBACCO >7 YEARS AGO 18 years ago [facility] Mar 01, 2015 10:52 AM QUIT TOBACCO >7 YEARS AGO [facility] Advance Directives: All historical and current Section Date Range: From patient's date of to the date document was created. This section includes ALL of a patient's completed or amended [place] Advance and Rescinded Directives. The entries below indicate that a directive exists for the patient, but an actual copy is not included with this document. The data comes from all [place] facilities. Date Advance Directives Provider Source Jul 13, 2021 ADVANCE DIRECTIVE DISCUSSION KATHIA SOE [facility] Sep 25, 2005 ADVANCE DIRECTIVE MIKEY OSORIO [facility] Encounter Notes: All associated encounter notes This section contains the clinical notes associated to the Encounter. Date/Time Encounter Note(s) Provider Source Jun 28, 2024 03:11 PM PRIMARY CARE NOTE: LOCAL TITLE: [facility] STANDARD TITLE: PRIMARY CARE NOTE DATE OF NOTE: JUN 28, 2024@15:11 ENTRY DATE: JUN 28, 2024@15:11:53 AUTHOR: DANGELO ADAMES EXP COSIGNER: URGENCY: STATUS: COMPLETED CHIEF COMPLAINT: Appt for sebaceous cyst, COPD, AFib, CHF, HTN, hyperlipidemia, DM2, screening colon cancer, nerupathy, elev PSA HISTORY OF PRESENT ILLNESS: Nursing notes reviewed. This is a 78 year-old being seen today for above reason. wants to discuss appetite loss. Today's weight is 172 lbs. Previousl weight was 188.3 lbs. Does not have much of an appetite. No abd pain, n/v. Bowels are loose. No blood in stools or black tarry stools. For today had bowel of cereal. NO lunch. He agrees to talk to dieitican about his weight loss. Also talk about loss of hearing and area on right ear. Does have feeling of fluid in ear and can hear himself chews. Does have sneezing, eyes water, and rhinhrroeal Has hearing aids but they make his ears itch. sebaceous cyst- seen surgeon on 01/14/24. Cyst was removed. COPD - last was seen had COPD exacerbation. On albuoterol, fluctisaone/salmetereol, and spiriva. Breathign is stable. NO increase use of rescue ihaler. No singificant cough. AFib - on metoprolol, sotolol, and apixiban. Labs ok. No bleeding. CHF - last EF 45-50%. ON aldactone, lasix, entresto, metoprolol. Sees card with last apt on 06/02/24. No chest pain. Some SOB but stable. No LE edema, orthopenea, PND. HTN - on metoprolol, sotolol, lasix, entresto, and aldactone. BP ok on current Rx. hyperlipdiemia - on simvastatin. Last labs showed total 89, trig 189, HDL 28, LDL 23. DM2 - on metformin 1000 mg BID. Last HbA1c was 5.8%. PReviously was 6.7%. Last eye exam 03/09. screening colon cancer - would not do given age. elev PSA-= last PSA 7.66. Previously was 6.09. Elevated since 11/03. Advised should see urologist. Had bx before and that was ok. neuropathy - on gabapentin. No sores on feet. Med does help. PAST MEDICAL HISTORY: Medications: As listed in chart and reviewed. Allergies: Patient has answered NKA >>Non-VA provider(s): madhavi hopkins SOCIAL HISTORY: Habits (Y/N): [ n] Tabacco [n ] Alcohol use [n ] Illicit drug use REVIEW OF SYSTEMS: General: No fever, chills,. No fatigue. See HPI. HEENT: No visual changes. See HPI. Cardiovascular: No chest pain, palptiations, edema. Respiratory: No cough, dyspnea, or hemoptysis. Gastrointestinal: No abdominal pain, nausea/vomiting, diarrhea, or hematochezia, or melena. Genitalurinary: No dysuria, , hematuria. Pos freq and urgency. Musculoskeletal: No acute muscle or joint pain. Skin: Skin lesion on arms also Neurologic: No headache, dizziness, numbness, tingling, weakness. Psychoogical: No depressive or anxiety symptoms. No suicidal ideation. OBJECTIVE: Vital signs: DATE/TIME TEMP PULSE RESP BP PAIN WT (LB) P OX 06/28/24 @ 1455 97.3 59 16 114/54 0 172 95 Physical Exam: General: NAD. Awake, alert, oriented x3. Here with . HEENT: TMS with fluid behind ears. No wax. AKs on ears Heart: RRR. No murmurs, gallops, rubs. Lungs: CTAB without crackles, rhonchi, or wheeze. Abdomen: Pos bowel sounds, soft, non-distended. No tenderness, guarding, rebound. No HSM. Extremities: No clubbing, cyanosis, edema. Skin: AKs on dorsum of hands Psychiatric: Pleasant, cooperative. Affect is full and mood congruent. Labs: [x ] Reviewed with patient from 06/14/24. ASSESSMENT/PLAN: 1. actinic keratosis - will order 5-FU to use on ears and hands. 2. allergic rhinitis- will order fexofenadine and flonase. 3. hearing loss - Rx as above and see audologist. 4. weight loss - try to eat 3 meals per day. Talk to combination machine tool operator about ensure supplement. 5. chronic obstructive pulmonayr disease- brearthing is stable, follow up with pulm 6. atrial fibrllation - rate controlled and anticogualuted. 7. congestive heart failure - clinically stable, continue meds, addressing risk factors, follow up with cardiogist 8. hypertensiion -blood pressure is good, continue meds 9. hyperlipdoiemia - good lipid control, continue med 10. diabetes mellitus type 2- good glycemic control, continue med 11. nerupathy - med does help 12. elevated prostate specifica antigen - see urologist Follow-up: 6 months [x ] Get labs [...] as planned or as needed. /xena/ Dangelo Adames M.D. M.D. Signed: 06/28/2024 15:46 DANGELO ADAMES [facility] Jun 28, 2024 02:54 PM NURSING NOTE: LOCAL TITLE: DANIELLA/PREVMED STANDARD TITLE: NURSING NOTE DATE OF NOTE: JUN 28, 2024@14:54 ENTRY DATE: JUN 28, 2024@14:54:50 AUTHOR: SONJA ROSALES EXP COSIGNER: URGENCY: STATUS: COMPLETED TWO OR MORE PATIENT IDENTIFIERS REQUIRED FULL NAME SS NUMBER Date here for 6 month appointment PCP: [place] Specialists: cardiology, pulmonology here with [place] wants to discuss appetite loss issues as well as loss of hearing and area on right ear Suicide Screen: C-SSRS Screening [place] Suicide Severity Rating Scale (C-SSRS) screener 1. Over the past month, have you wished you were or wished you could go to sleep and not wake up? No 2. Over the past month, have you had any actual thoughts of killing yourself? No 3. Over the past month, have you been thinking about how you might do this? Response not required due to responses to other questions. 4. Over the past month, have you had these thoughts and had some intention of acting on them? Response not required due to responses to other questions. 5. Over the past month, have you started to work out or worked out the details of how to kill yourself? Response not required due to responses to other questions. 6. If yes, at any time in the past month did you intend to carry out this plan? Response not required due to responses to other questions. 7. In your lifetime, have you ever done anything, started to do anything, or prepared to do anything to end your life (for example, collected pills, obtained a gun, gave away valuables, went to the roof but didn't jump)? No 8. If YES, was this within the past 3 months? Response not required due to responses to other questions. Influenza Immunization: Influenza, High-Dose, Trivalent, Preservative Free (Fluzone-Syringe) Administered: INFLUENZA, HIGH-DOSE, TRIVALENT, PF Date Administered: Jun 28, 2024 15:00 Fountain Dispenser: SANOFI PASTEUR Lot: [id number] Exp Date: Dec 13, [address] [facility]: [id number] Admin Route/Site: INTRAMUSCULAR/RIGHT DELTOID Dosage: 0.5mL Vaccine Information Statement(s): INFLUENZA(FLU) VACC(INACTIVATED OR RECOMBINANT)VIS Jan 19, 2021 ([place]) Order By: Policy Administered By: Sonja Rosales The Influenza Vaccine Information Statement (VIS) was reviewed with the patient/caregiver which lists the benefits and risks of the vaccine and the risks of not receiving the Influenza vaccine. The patient/caregiver denied any prior severe reaction to this vaccine or its components or a severe allergic reaction, such as anaphylaxis, to any vaccine or any injectable therapy. The patient/caregiver gave verbal consent to receive the vaccine. Sexual Orientation: The patient thinks of their sexual orientation as: Straight or Heterosexual RHS Screen: RHS Screen Environmental Check Screening was not completed at this time due to: Another adult present DANIELLA-DIABETIC FOOT SCREEN: Patient Refused DM Foot exam this visit. Homelessness/Food Insecurity Screen: In the past 2 months, have you been living in stable housing that you own, rent, or stay in as part of a household? Yes - Living in stable housing. Are you worried or concerned that in the next 2 months you may NOT have stable housing that you own, rent, or stay in as part of a household? No - Not worried about housing near future The reports the following: Within the past 12 months, you worried whether your food would run out before you got money to buy more. Never true Within the past 12 months, the food you bought just didn't last and you didn't have money to get more. Never true DANIELLA-ADVANCE DIRECTIVES: Advance care planning is the process for identifying and communicating an individual's values and preferences regarding future health care. An advance directive is a written statement regarding preferences about future health care decisions in the event that individual becomes unable to make those decisions. Notification of Rights Related to Advance Directives: Written notification provided. ADVANCE DIRECTIVE: Do you have Advance Directive? NO The patient wishes to receive information about or assistance with Advance Care Planning and/or Advance Directive: No Patient refused/declined Advance Directive assistance at this time. DANIELLA-CHF PATIENT EDUCATION: Patient declined chf/patient education at this encounter. DANIELLA-EDUCATION ASSESSMENT: `````````````````````````` ```````````` ANNUAL EDUCATION NEEDS/BARRIER ASSESSMENT Primary healthcare language: Syriac Barriers to Learning: Physical: Hearing Impairment Comment: hearing loss Visual Impairment Comment: wears glasses Cognitive: Memory Problems Comment: short term Socioeconomic: None Preferred Learning Methods: Demonstration - Watching and the Doing `````````````````````````` ```````````` DANIELLA-PT AT RISK INCAPACITATED SCREEN: 1) Does the patient meet any of the criteria for being considered incapacitated? [ NO ] DANIELLA/FRAIL ELDERLY SCREEN(HELEN): BEGIN ASSESSMENT INSTRUMENTAL ACTIVITIES OF [facility]IV[facility] ([facility]) SCALE (Helen) Ability to use telephone: 1 point - Operates telephone on own initiative; looks up and dials numbers, etc. Shoppin point - Takes care of all shopping needs independently Food preparation: 1 point - Plans, prepares, and serves adequate meals independently Housekeepin point - Maintains house alone or with occasional assistance (e.g., heavy work domestic help ) Laundry: 1 point - Does personal laundry completely Mode of transportation: 1 point - Travels independently on public transportation or drives own car Responsibility for own medications: 1 point - Is responsible for taking medication in correct dosages at correct time Ability to handle finances: 1 point - Manages financial matters independently (budgets, writes checks, pays rent and bills, goes to bank), collects and keeps track of income SCORING: The total score may range from 0 - 8. A lower score indicates the patient needs more assistances. Total score: 8 points Click appropriate selection below: Patient does not require assistance. (Total Score was 8) Stress: reports nothing in the last 6 months that has caused worry or stress. COVID-19 Immunization: /es/ SONJA ROSALES lpn Signed: 06/28/2024 15:11 SONJA ROSALES [facility] "
--- NOTE | 2024-10-30 08:58 | ED_ITS ---
HPI - Fall General Chief Complaint: Fall Stated Complaint: fall; left rib pain and left shoulder pain Time Seen by Provider: 10/30/24 08:58 Source: patient Mode of arrival: ambulatory Limitations: no limitations History of Present Illness HPI Narrative: 79 years old white male, tripped and fell on the left side of his body, complaining of left shoulder and left lower ribs pain, denies other injuries. Patient came walking to the emergency room. Related Data Home Medications Medication Instructions Recorded Confirmed Last Taken Type albuterol sulfate 90 mcg/actuation 1 inh inhalation QID PRN Shortness 01/26/21 01/26/21 Unknown History aerosol inhaler (ProAir HFA) Of Breath Or Wheezing aspirin 81 mg chewable tablet 81 mg PO DAILY 01/26/21 01/26/21 Unknown History budesonide-formoterol HFA 160 2 puff inhalation Q12H 01/26/21 01/26/21 Unknown History mcg-4.5 mcg/actuation aerosol inhaler (Symbicort) famotidine 40 mg tablet 40 mg PO HS 01/26/21 01/26/21 Unknown History ferrous sulfate 325 mg (65 mg 325 mg PO DAILY 01/26/21 01/26/21 Unknown History iron) tablet folic acid 1 mg tablet 1 mg PO DAILY 01/26/21 01/26/21 Unknown History furosemide 40 mg tablet 40 mg PO DAILY 01/26/21 01/26/21 Unknown History ipratropium 0.5 mg-albuterol 3 mg 3 ml inhalation Q6H PRN Shortness 01/26/21 01/26/21 Unknown History (2.5 mg base)/3 mL nebulization Of Breath Or Wheezing soln metformin 500 mg tablet 500 mg PO BID 01/26/21 01/26/21 Unknown History metoprolol succinate 100 mg 100 mg PO DAILY 01/26/21 01/26/21 Unknown History tablet,extended release 24 hr omeprazole 40 mg capsule,delayed 40 mg PO DAILY 01/26/21 01/26/21 Unknown History release sacubitril 24 mg-valsartan 26 mg 1 tablet PO BID 01/26/21 01/26/21 Unknown History tablet simvastatin 40 mg tablet 40 mg PO HS 01/26/21 01/26/21 Unknown History spironolactone 25 mg tablet 25 mg PO DAILY 01/26/21 01/26/21 Unknown History tiotropium bromide 18 mcg capsule 1 cap inhalation DAILY 01/26/21 01/26/21 Unknown History with inhalation device (Spiriva with HandiHaler) Allergies Allergy/AdvReac Type Severity Reaction Status Date / Time lisinopril Allergy Mild Cough Verified 10/30/24 08:59 Review of Systems Review of Systems: All systems reviewed & are unremarkable except as noted in HPI and below PMFSH Past Medical History Medical History Hypertension Diabetes Coronary artery disease Family History Family History Mother Acute myocardial infarction Father Cerebrovascular accident Sibling Asthma Chronic obstructive pulmonary disease Colon cancer Congestive heart failure Acute myocardial infarction Diabetes mellitus Hypertension Prostate carcinoma Social History Social History Smoking packs per day: 1 Smoking cigarettes per day: 20.0 Years smoked: 55 Smoking pack-years: 55.00 Smoking status: Former smoker Tobacco type: cigarettes Alcohol intake: former Substance use: never Spiritual care concerns: No Exam Narrative: General appearance: Well-developed, well-nourished Skin: Normal color Head: Normocephalic, nontraumatic Eyes: Clear conjunctiva ENT: Oropharynx normal, ears normal, nose normal Neck: Supple, nontender Chest and respiratory: Airway patent, no respiratory distress, no accessory muscle use Heart: Regular rate/rhythm Abdomen: Soft, nontender, no organomegaly, quiet bowel sounds Vascular: Normal peripheral pulses, normal capillary refill. Musculoskeletal: Mild tenderness left lower ribs posteriorly, slight limited range of left shoulder because of pain otherwise no bruises, no swelling, no deformity Neurologic: Alert and oriented ×3, [employer] is normal as tested, no gross motor deficit Course Vital Signs Vital signs: Vital Signs Temperature 36.1 C L 10/30/24 08:42 Pulse Rate 68 10/30/24 08:42 Respiratory Rate 18 10/30/24 08:42 Blood Pressure 125/79 10/30/24 08:42 Pulse Oximetry 97 10/30/24 08:42 Oxygen Delivery Room Air 10/30/24 08:42 Temperature 36.1 C L 10/30/24 08:42 Pulse Rate 68 10/30/24 08:42 Respiratory Rate 18 10/30/24 08:42 Blood Pressure 125/79 10/30/24 08:42 Pulse Oximetry 97 10/30/24 08:42 Oxygen Delivery Room Air 10/30/24 08:42 MDM - Fall MDM Narrative Medical decision making narrative: patient tripped and fell to the ground, left side, left shoulder and left lower ribs pain X-ray of the left shoulder showed no acute osseous abnormalities X-ray of the left ribs and chest showed no acute osseous abnormality Discharge Plan Discharge Clinical Impression: Chest wall pain, Acute pain of left shoulder Patient Disposition: Home Condition: Stable Instructions: Shoulder Pain (ED), Chest Wall Pain (ED) Additional Instructions: Return if symptoms are worsening , call your family physician for appointment, take Tylenol, ibuprofen as as needed for aches and pain, continue home medications. Patient Language: Croatian Prescriptions: No Action furosemide 40 mg Tablet 40 mg PO DAILY metformin 500 mg Tablet 500 mg PO BID ipratropium-albuterol 0.5 mg-3 mg(2.5 mg base)/3 mL Solution For Nebulization 3 ml INHALATION Q6H PRN (Reason: Shortness Of Breath Or Wheezing) simvastatin 40 mg Tablet 40 mg PO HS aspirin 81 mg Tablet,Chewable 81 mg PO DAILY albuterol sulfate [ProAir HFA] 90 mcg/actuation Hfa Aerosol Inhaler 1 inh INHALATION QID PRN (Reason: Shortness Of Breath Or Wheezing) Spiriva with HandiHaler 18 mcg Capsule, W/Inhalation Device 1 cap INHALATION DAILY budesonide-formoterol [Symbicort] 160-4.5 mcg/actuation Hfa Aerosol Inhaler 2 puff INHALATION Q12H famotidine 40 mg Tablet 40 mg PO HS metoprolol succinate 100 mg Tablet Extended Release 24 Hr 100 mg PO DAILY omeprazole 40 mg Capsule,Delayed Release(Dr/Ec) 40 mg PO DAILY spironolactone 25 mg Tablet 25 mg PO DAILY ferrous sulfate 325 mg (65 mg iron) Tablet 325 mg PO DAILY folic acid 1 mg Tablet 1 mg PO DAILY sacubitril-valsartan 24-26 mg Tablet 1 tablet PO BID Follow-up/Referrals: [facility] [Primary Care Provider] -
[2024-10-30] MEDS: HYDROcodone/acetaminophen (*CRX) 5-325 MG TABLET 1 TAB PO (09:28)
[2024-10-30] MEDS: IBUPROFEN 400 MG TABLET PO (09:28)
--- OUTSIDE RECORDS SUMMARY | 2024-10-30 09:31 | XMS_ITS | Clinical Summary ---
Author Organization [facility] Address [address] [place] [address] Care Team Providers Care Esthetician And Manager Medical Spa Name Role Phone Dangelo Adames MD Primary Care Provider [phone] Yanick Jackson MD Unavailable [phone] Gokul Julien MD Unavailable [phone] Teri Jerome PA-C Unavailable [phone] Allergies Active Allergy Reactions Criticality Noted [...] A1c COPD (chronic obstructive pu lmonary disease) ([facility]) Agent orange exposure CHF (congestive heart failure) ([facility]) Paroxysmal atrial fibrillation ([facility]) Resolved Problems Problem Noted Date Diagnosed Date Resolved Date COPD exacerbation ([facility]) 06/14/2019 06/15/2019 Encounter for preventive health examination 10/18/2013 02/25/2020 Encounters Date Type Department Care Team Description 10/27/2024 2:45 PM CDT Office Visit [facility] [address] [place] [address] Gokul Julien MD Follow Up 10/27/2024 2:02 PM CDT - 10/27/2024 11:59 PM CDT Hospital Encounter [facility] [place] [address] Gokul Julien MD Arrived Discharge Disposition: Home or Self Care (Routine Discharge) 10/27/2024 Travel 10/27/2024 Orders Only [facility] [place] [address] Gokul Julien MD 10/26/2024 Telephone [facility] [place] [address] Gokul Julien MD Appointment Reminder 09/28/2024 Telephone [facility] [address] [place] [address] Gokul Julien MD Referral 09/02/2024 Telephone [facility] [address] [place] [address] Gokul Julien MD Reschedule 08/21/2024 1:04 PM ELECTRICAL PROSPECTING OPERATOR - 08/21/2024 3:31 PM [facility] Emergency [facility] [address] [place] [address] [place] [address] Pranay Lawler, DO Urinary Symptoms Discharge Disposition: Home or Self Care (Routine Discharge) 08/21/2024 Travel 08/18/2024 7:16 AM ELECTRICAL PROSPECTING OPERATOR - 08/18/2024 9:43 AM [facility] Emergency [facility] [address] [place] [address] [place] [address] Pranay Lawler, DO Urinary Symptoms Discharge Disposition: Home or Self Care (Routine Discharge) 08/18/2024 Travel 08/17/2024 7:16 PM ELECTRICAL PROSPECTING OPERATOR - 08/17/2024 8:55 PM [facility] Emergency [facility] [address] [place] [address] [place] [address] Cristian Falrey MD Urinary Symptoms Discharge Disposition: Home or Self Care (Routine Discharge) 08/17/2024 Travel 08/09/2024 3:20 PM ELECTRICAL PROSPECTING OPERATOR - 08/09/2024 7:32 PM [facility] Emergency Room [address] [place] [address] [place] [address] Jl Zuniga MD Cough; Breathing Problem Discharge [...] place to sleep or slept in a longterm (including now)? No 11/15/2022 Sex and Gender Information Value Date Recorded Sex Assigned at Male 08/09/2024 3:31 PM ELECTRICAL PROSPECTING OPERATOR Legal Sex Male 11:57 PM CDT Gender Identity Male 06/14/2019 10:46 AM ELECTRICAL PROSPECTING OPERATOR Sexual Orientation Not on file Occupation Industry Job Start Date Job End Date Not on file Not on file Not on file Not on file Last Filed Vital Signs Vital Sign Reading Time Taken Comments Blood Pressure 114/59 10/27/2024 2:27 PM CDT Pulse 63 10/27/2024 2:27 PM CDT Temperature 36.9 C (98.4 F) 08/21/2024 1:06 PM ELECTRICAL PROSPECTING OPERATOR Respiratory Rate 22 10/27/2024 2:27 PM CDT [...] ( season) 2024 08/22/2020, 07/21/2020 PHQ-2 (Physician Snyder) 06/16/2024 Hemoglobin A1C 12/13/2024 06/14/2024, 10/14, 04/30/2017 [...] 10/27/2024 2:20 PM CDT Paroxysmal atrial fibrillation ([facility]) PVC (premature ventricular contraction) CHF (congestive heart failure) ([facility]) HC URINALYSIS AUTO W/MICRO STAT 08/17/2024 8:01 PM ELECTRICAL PROSPECTING OPERATOR LACTIC ACID W REFLEX (SEPSIS) TIMED 08/09/2024 5:30 PM ELECTRICAL PROSPECTING OPERATOR XR CHEST PA+LAT STAT 08/09/2024 3:33 PM ELECTRICAL PROSPECTING OPERATOR CORONAVIRUS (COVID-19) ANTIGEN STAT 08/09/2024 3:30 PM ELECTRICAL PROSPECTING OPERATOR INFLUENZA A & B STAT 08/09/2024 3:30 PM ELECTRICAL PROSPECTING OPERATOR ECG 12-LEAD Routine 08/09/2024 3:25 PM ELECTRICAL PROSPECTING OPERATOR PRO-BRAIN NATRIURETIC PEPTIDE STAT 08/09/2024 3:21 PM ELECTRICAL PROSPECTING OPERATOR LACTIC ACID W REFLEX (SEPSIS) STAT 08/09/2024 3:21 PM ELECTRICAL PROSPECTING OPERATOR TROPONIN, QUANT STAT 08/09/2024 3:21 PM ELECTRICAL PROSPECTING OPERATOR COMPREHENSIVE METABOLIC PANEL STAT 08/09/2024 3:21 PM ELECTRICAL PROSPECTING OPERATOR CBC W/DIFF AUTOMATED STAT 08/09/2024 3:21 PM ELECTRICAL PROSPECTING OPERATOR LIPID PANEL Routine 06/14/2024 HEMOGLOBIN, GLYCOSYLATED Routine 06/14/2024 LIPID PANEL Routine 11/01/2020 from Last 3 Months or Most Recently Relevant to Health Maintenance Results * ECG 12 lead (HOSPITAL PERFORMED ONLY) (10/27/2024 2:20 PM CDT) Only the most recent of2 resultswithin the time period is included. 10/27/2024 2:2 0 PM CDT Narrative [facility] - 10/27/2024 2:[address] PM CDT [address] [place] [address] Test Date: 2024-10-27 Pat Name: GAYLE ELLIOT Department: 3 Room: Gender: Male Manager Business Process: : 1945 Requested By: GOKUL JULIEN Order Number: [id number] [place] MD: Gokul Julien Measurements Intervals [place] Rate: 62 P: 91 CO: 183 QRS: 80 QRSD: 142 T: 59 QT: 483 QTc: 494 Interpretive Statements SINUS RHYTHM WITH OCCASIONAL SUPRAVENTRICULAR PREMATURE COMPLEXES INTRAVENTRICULAR CONDUCTION DELAY PROBABLE LATERAL MYOCARDIAL INFARCTION , OF INDETERMINATE AGE INFERIOR MYOCARDIAL INFARCTION , PROBABLY OLD Procedure Note Gokul Julien MD - 10/27/[address] [place] [address] Test Date: 2024-10-27 Pat Name: GAYLE ELLIOT Department: 3 Room: Gender: Male Manager Business Process: : 1945 Requested By: GOKUL JULIEN Order Number: [id number] [place] MD: Gokul Julien Measurements Intervals [place] Rate: 62 P: 91 CO: 183 QRS: 80 QRSD: 142 T: 59 QT: 483 QTc: 494 Interpretive Statements SINUS RHYTHM WITH OCCASIONAL SUPRAVENTRICULAR PREMATURE COMPLEXES INTRAVENTRICULAR CONDUCTION DELAY PROBABLE LATERAL MYOCARDIAL INFARCTION , OF INDETERMINATE AGE INFERIOR MYOCARDIAL INFARCTION , PROBABLY OLD us Gokul Julien MD ECG ORDERABLES Final Res ult [facility] * (ABNORMAL) URINALYSIS (08/17/2024 8:01 PM ELECTRICAL PROSPECTING OPERATOR) COLOR (U) YELLOW 08/17/2024 8:14 PM ELECTRICAL PROSPECTING OPERATOR [facility] TRANSPARENCY CLEAR 08/17/2024 8:14 PM ELECTRICAL PROSPECTING OPERATOR [facility] SPECIFIC GRAVITY (U) 1.015 1.000 - 1.025 08/17/2024 8:14 PM ELECTRICAL PROSPECTING OPERATOR [facility] U PH 7.0 5.0 - 8.0 08/17/2024 8:14 PM [facility] LEUKOCYTES (U) NEGATIVE NEGATIVE 08/17/2024 8:14 PM ELECTRICAL PROSPECTING OPERATOR [facility] NITRITES NEGATIVE NEGATIVE 08/17/2024 8:14 PM ELECTRICAL PROSPECTING OPERATOR [facility] PROTEIN RANDOM (U) TRACE(A) NEGATIVE 08/17/2024 8:14 PM [facility] GLUCOSE (U) NEGATIVE NEGATIVE 08/17/2024 8:14 PM [facility] KETONES MG/DL (U) NEGATIVE NEGATIVE 08/17/2024 8:14 PM [facility] UROBILINOGEN 2.0(H) <1.0 EU/DL 08/17/2024 8:14 PM ELECTRICAL PROSPECTING OPERATOR [facility] BILIRUBIN (U) NEGATIVE NEGATIVE 08/17/2024 8:14 PM [facility] BLOOD (U) NEGATIVE NEGATIVE 08/17/2024 8:14 PM ELECTRICAL PROSPECTING OPERATOR [facility] WBC/HPF 0-5 0 - 5 /HPF 08/17/2024 8:14 PM ELECTRICAL PROSPECTING OPERATOR [facility] EPI/LPF OCCASIONAL /LPF 08/17/2024 8:14 PM ELECTRICAL PROSPECTING OPERATOR [facility] BACTERIA (U) 2+ /HPF 08/17/2024 8:14 PM ELECTRICAL PROSPECTING OPERATOR [facility] MUCUS PRESENT 08/17/2024 8:14 PM [facility] URINE SPECIMEN OBTAINED BY CLEAN CATCH PROCEDURE / Unknown 08/17/2024 8:01 PM ELECTRICAL PROSPECTING OPERATOR us Cristian Farley MD URINE ORDERABLES Final Result [facility] [address] [place] [address], [place] [phone] * (ABNORMAL) LACTIC ACID W REFLEX (SEPSIS) (08/09/2024 5:30 PM ELECTRICAL PROSPECTING OPERATOR) Only the most recent of2 resultswithin the time period is included. LACTIC ACID VENOUS 3.3(H) 0.4 - 2.0 MMOL/L 08/09/2024 5:58 PM ELECTRICAL PROSPECTING OPERATOR [facility] 08/09/2024 5:30 PM ELECTRICAL PROSPECTING OPERATOR us Jl Zuniga MD LABORATORY Final Result [facility] [address] [place] [address], [place] [phone] * XR CHEST PA+LAT (08/09/2024 3:33 PM ELECTRICAL PROSPECTING OPERATOR) Anatomical Region Laterality Modality Chest Radiographic Maryan ging 08/09/2024 3:34 PM ELECTRICAL PROSPECTING OPERATOR Impressions 08/09/2024 3:36 PM ELECTRICAL PROSPECTING OPERATOR IMPRESSION: 1. No definitive radiographic evidence of active chest disease. 2. Emphysematous changes. Ordered By: JL ZUNIGA Interpreted By: Dangelo Herring MD, 08/09/2024 3:34 PM Narrative 08/09/2024 3:36 PM ELECTRICAL PROSPECTING OPERATOR [address] [place] [address] Examination: XR CHEST PA+LAT Exam time: 08/09/2024 [...] No evidence of pleural effusion. Procedure Note Dangelo Herring MD - 08/09/2024 [facility] [address] [place] [address] Examination: XR CHEST PA+LAT Exam time: 08/09/2024 [...] changes. Ordered By: JL ZUNIGA Interpreted By: Dangelo Herring MD, 08/09/2024 3:34 PM Jl Zuniga MD GENERAL IMAGING Final Result * CORONAVIRUS (COVID-19) ANTIGEN (08/09/2024 3:30 PM ELECTRICAL PROSPECTING OPERATOR) CORONAVIRUS ANTIGEN IA NEGATIVE NEGATIVE 08/09/2024 4:36 PM ELECTRICAL PROSPECTING OPERATOR [facility] Comment: NEGATIVE RESULTS DO NOT RULE [...] LABORATORIES. SPECIMEN TYPE NASAL 08/09/2024 3:32 PM ELECTRICAL PROSPECTING OPERATOR [facility] NASAL NASAL STRUCTURE / Unknown 08/09/2024 3:30 PM ELECTRICAL PROSPECTING OPERATOR Jl Zuniga MD MICROBIOLOGY - G ENERAL ORDERABLES Final Result [facility] [address] [place], [place] [id number], * INFLUENZA A & B (08/09/2024 3:30 PM ELECTRICAL PROSPECTING OPERATOR) SPECIMEN TYPE (INFLUENZA) NASOPHARYNGEAL SWAB 08/09/2024 3:32 PM ELECTRICAL PROSPECTING OPERATOR [facility] INFLUENZA A NEGATIVE NEGATIVE 08/09/2024 4:36 PM ELECTRICAL PROSPECTING OPERATOR [facility] INFLUENZA B NEGATIVE NEGATIVE 08/09/2024 4:36 PM ELECTRICAL PROSPECTING OPERATOR [facility] Comment: A NEGATIVE RESULT DOES NOT EXCLUDE INFLUENZA VIRUS INFECTION. IF INFLUENZA IS CIRCULATING IN YOUR COMMUNITY, A DIAGNOSIS OF INFLUENZA SHOULD BE CONSIDERED BASED ON A PATIENT'S CLINICAL PRESENTATION AND EMPIRIC ANTIVIRAL TREATMENT SHOULD BE CONSIDERED IF INDICATED. NASAL NASOPHARYNGEAL SWAB / Unknown 08/09/2024 3:30 PM ELECTRICAL PROSPECTING OPERATOR Jl Zuniga MD MICROBIOLOGY - G ENERAL ORDERABLES Final Result Performing Organization Address City/[facility]/ZIP Co de Phone Number [facility] [address] [place] [phone], * (ABNORMAL) PRO-BRAIN NATRIURETIC PEPTIDE (08/09/2024 3:21 PM ELECTRICAL PROSPECTING OPERATOR) PRO-B TYPE NATRIURETIC PEPTIDE 499(H) <450 PG/ML 08/09/2024 3:51 PM ELECTRICAL PROSPECTING OPERATOR [facility] Comment: CUT POINTS ESTABLISHED BY INTERNATIONAL [...] 72% FOR ACUTE CHF. 08/09/2024 3:21 PM ELECTRICAL PROSPECTING OPERATOR Jl Zuniga MD LABORATORY Final Result [facility] [address] [place] [address], * (ABNORMAL) COMPREHENSIVE METABOLIC PANEL (08/09/2024 3:21 PM ELECTRICAL PROSPECTING OPERATOR) SODIUM S/P/B 140 136 - 145 MMOL/L 08/09/2024 3:51 PM ELECTRICAL PROSPECTING OPERATOR [facility] POTASSIUM S/P/B 3.7 3.5 - 5.1 MMOL/L 08/09/2024 3:51 PM ELECTRICAL PROSPECTING OPERATOR [facility] CHLORIDE S/P/B 101 98 - 107 MMOL/L 08/09/2024 3:51 PM ELECTRICAL PROSPECTING OPERATOR [facility] CO2 29.3 21.0 - 32.0 MMOL/L 08/09/2024 3:51 PM [facility] GLUCOSE 108(H) 70 - 99 MG/DL 08/09/2024 3:51 PM [facility] Comment: FASTING GLUCOSE 100 TO 125 MG/DL IS CONSISTENT WITH IMPAIRED FASTING GLUCOSE. FASTING GLUCOSE >125 MG/DL IS CONSISTENT WITH DIABETES. RANDOM GLUCOSE >200 MG/DL WITH HYPERGLYCEMIC SYMPTOMS IS CONSISTENT WITH DIABETES. PER ADA GUIDELINES BUN 7 6 - 24 MG/DL 08/09/2024 3:51 PM ELECTRICAL PROSPECTING OPERATOR [facility] CREATININE S/P/B 0.75 0.70 - 1.30 MG/DL 08/09/2024 3:51 PM [facility] CALCIUM S/P/B 9.8 8.4 - 10.5 MG/DL 08/09/2024 3:51 PM [facility] BILIRUBIN TOTAL S/P/B 1.3(H) 0.2 - 1.0 MG/DL 08/09/2024 3:51 PM [facility] Comment: THIS ASSAY IS NOT RECOMMENDED FOR PATIENTS UNDERGOING TREATMENT WITH ELTROMBOPAG DUE TO THE POTENTIAL FOR FALSELY ELEVATED RESULTS. ALKALINE PHOSPHATASE S/P/B 278(H) 45 - 115 U/L 08/09/2024 3:51 PM [facility] AST 48(H) 15 - 37 U/L 08/09/2024 3:51 PM ELECTRICAL PROSPECTING OPERATOR [facility] ALT 88(H) 16 - 63 U/L 08/09/2024 3:51 PM [facility] TOTAL PROTEIN S/P/B 8.0 6.4 - 8.2 G/DL 08/09/2024 3:51 PM [facility] ALBUMIN S/P/B 2.7(L) 3.4 - 5.0 G/DL 08/09/2024 3:51 PM [facility] ANION GAP 9.7 5.0 - 15.0 MMOL/L 08/09/2024 3:51 PM [facility] OSMOLALITY (CALC) 288 MOSM/KG 025 3:51 PM [facility] Comment:REFERENCE RANGE NOT ESTABLISHED GFR ESTIMATE >90 >89 ML/MIN/1. 73 M2 08/09/2024 3:51 PM [facility] GFR NOTES GFR REFERENCE S: 08/09/2024 3:51 PM [facility] Comment: THE ESTIMATED GFR IS CALCULATED [...] FAILURE: <15 ml/min/1.73 m2 08/09/2024 3:21 PM ELECTRICAL PROSPECTING OPERATOR us Jl Zuniga MD LABORATORY Final Result [facility] [address] [facility] [place] [address], * (ABNORMAL) CBC W/DIFF AUTOMATED (08/09/2024 3:21 PM ELECTRICAL PROSPECTING OPERATOR) WBC 12.45(H) 4.00 - 10.80 x10'3/uL 08/09/2024 3:26 PM [facility] RBC 4.89 4.50 - 6.10 x10'6/uL 08/09/2024 3:26 PM [facility] HGB 14.1 13.0 - 18.0 G/DL 08/09/2024 3:26 PM [facility] HCT 42.7 37.0 - 52.0 % 08/09/2024 3:26 PM [facility] MCV 87.3 78.0 - 100.0 FL 08/09/2024 3:26 PM [facility] MCH 28.8 27.0 - 31.0 PG 08/09/2024 3:26 PM [facility] MCHC 33.0 33.0 - 36.0 G/DL 08/09/2024 3:26 PM [facility] RDW 12.2 11.5 - 14.5 % 08/09/2024 3:26 PM [facility] PLT 400(H) 150 - 350 x10'3/uL 08/09/2024 3:26 PM [facility] MPV 8.8 7.4 - 10.4 FL 08/09/2024 3:26 PM [facility] CBC COMMENT NORMAL REFERENCE RANGE NOT ESTABLISHED FOR THE PROPORTIONAL LEUKOCYTE DIFFERENTIAL. 08/09/2024 3:26 PM [facility] NEUTROPHILS % 80.7 % 08/09/2024 3:26 PM [facility] LYMPHOCYTES % 11.5 % 08/09/2024 3:26 PM [facility] MONOCYTES % 6.6 % 08/09/2024 3:26 PM [facility] EOSINOPHILS % 0.6 % 08/09/2024 3:26 PM [facility] BASOPHILS % 0.4 % 08/09/2024 3:26 PM ELECTRICAL PROSPECTING OPERATOR [facility] IMMATURE GRANS % 0.2 % 08/09/19 3:26 PM ELECTRICAL PROSPECTING OPERATOR [id number]|2024-10-30 09:31:00|2024-10-30 09:30:00|XMS_ITS|JEREMÍASG JOSE|External Medical Summaries|[id number]|" Encounter Summary Created on: October 30, 2024 Gayle Sandra : 1945 Sex: Male Author Organization [facility] Address [facility] [place] [address] Care Team Providers Care Esthetician And Manager Medical Spa Name Role Phone Tita Mccain APRN, NP-C Unavailable [phone] Dorian Christy MD Unavailable [phone] Dangelo Adames MD Primary Care Provider [phone] Yanick Jackson MD Unavailable [phone] Gokul Julien MD Unavailable [phone] Chante Lucas MD Unavailable [phone] Teri Jerome PA-C Unavailable [phone] Encounter Details Date Type Department Care Team (Late st Contact Info) Description 11/21/2022 Hospital Follow-up Call [facility] [address] [place] [address] Niki Crooks, RN Social History Tobacco Use Types Packs/Day Years Used Date Smoking Tobacco: Former Cigarettes 1 50 1 914 - 2004 Smokeless Tobacco: Never Alcohol Use [...] place to sleep or slept in a longterm (including now)? No 11/15/2022 Sex and Gender Information Value Date Recorded Sex Assigned at Male 08/09/2024 3:31 PM ELECTRICAL PROSPECTING OPERATOR Legal Sex Male 11:57 PM CDT Gender Identity Male 06/14/2019 10:46 AM ELECTRICAL PROSPECTING OPERATOR Sexual Orientation Not on file Occupation Industry [...] No 11/15/2022 2:13 PM CDT Latoya Townsend A, R N Active * Are you blind or do you have serious difficulty seeing, even when wearing glasses? Answer Date of Assessment Author Status No 11/15/2022 2:13 PM CDT Latoya Townsend A, R N Active * Do you have serious difficulty walking or climbing stairs? Answer Date of Assessment Author Status Yes 11/15/2022 2:13 PM CDT Latoya Townsend A, R N Active * Do you have difficulty dressing or bathing? Answer Date of Assessment Author Status No 11/15/2022 2:13 PM CDT Latoya Townsend A, R N Active * Because of a physical, mental, or emotional condition, do you have difficulty doing errands alone such as visiting a doctor's office or shopping? Answer Date of Assessment Author Status No 11/15/2022 2:13 PM CDT Latoya Townsend A, R N Active documented as of this encounter Mental Status * Because of a physical, mental, or emotional condition, do you have serious difficulty concentrating, remembering, or making decisions? Answer Entry Date Author Status No 11/15/2022 2:13 PM CDT Latoya Townsend A, R N Active documented in this encounter Plan of Treatment Not on file documented as of this encounter Visit Diagnoses Not on filedocumented in this encounter Additional Health Concerns Infection Onset Date Last Indicated Resolved Time COVID-19 Rule Out 08/09/2024 08/09/2024 08/09/2024 4:36 PM ELECTRICAL PROSPECTING OPERATOR documented as of this encounter Care Teams Esthetician And Manager Medical Spa Relationship Specialty Start Date End Date Dangelo Adames MD [address] [address] PCP - General INTERNAL MEDICINE 10/24/17 Tita Mccain APRN, APPLICATION ADMINISTRATOR-C [address] [place] [address] [address] [place] [address] NURSE PRACTITIONER 05/30/17 01/26/24 Dorian Christy MD [address] [place] [phone] CARDIOVASCULAR DISEASE 06/30/17 4 Yanick Jackson MD [address] [place] [address] PULMONARY DISEASE 10/28/17 oGkul Julien MD [address] [place] [address] EP Ground Host/Hostess CLINICAL CARDIAC ELECTROPHYSIOLOGY 08/27/21 Chante Lucas MD [address] [place] [address] INTERVENTIONAL CARDIOLOGY 11/20/2310/18 Teri Jerome PA-C [address] [place] [address] Referring Physician PHYSICIAN AUGER OPERATOR 10/17/24 documented as of this encounter "
--- OUTSIDE RECORDS SUMMARY | 2024-10-30 09:31 | XMS_ITS | Encounter Summary ---
Author Organization [facility] Address [facility] [place] [address] Care Team Providers Care Stitch Bonder Machine Operator Helper Name Role Phone Tita Mccain APRN, NP-C Unavailable Dorian Christy MD Unavailable [phone] Dangelo Adames MD Primary Care Provider [phone] Yanick Jackson MD Unavailable [phone] Gokul Mayorga MD Unavailable [phone] Chante Lucas MD Unavailable [phone] Teri Jerome PA-C Unavailable [phone] Encounter Details Date Type Department Care Team (Late st Contact Info) Description 07/12/2022 Hospital Orders Only [facility] Pre[facility]Post [address] [place] [address] Gokul Mayorga MD [address] [place] [address] Social History Tobacco Use Types Packs/Day Years Used Date Smoking Tobacco: Former Cigarettes 1 50 1 954 - 2004 Smokeless Tobacco: Never Alcohol Use Standard Drinks/Week Comments No 0 (1 standard drink = 0.6 oz pur e alcohol) Sex and Gender Information Value Date Recorded Sex Assigned at Male 08/09/2024 3:31 PM CRUSHER AND BINDER OPERATOR Legal Sex Male 11:57 PM CDT Gender Identity Male 06/14/2019 10:46 AM CRUSHER AND BINDER OPERATOR Sexual Orientation Not on file Occupation Industry Job Start Date Job End Date Not on file Not on file Not on file Not on file COVID-19 Exposure Response Date Recorded In the last 10 days, have sandra larkin been in contact with someone who was confirmed or suspected to have Coronavirus/COVID-19? No / Unsure 06/12/2022 9:23 AM CRUSHER AND BINDER OPERATOR documented as of this encounter Functional Status [...] Rule Out 08/09/2024 08/09/2024 08/09/2024 4:36 PM CRUSHER AND BINDER OPERATOR documented as of this encounter Care Teams Stitch Bonder Machine Operator Helper Relationship Specialty Start Date End Date Dangelo Adames MD [address] [address] PCP - General INTERNAL MEDICINE 10/24/17 Tita Mccain APRN, RISK CONTROL DIRECTOR-C [address] [place] [address] [address] [place] [address] NURSE PRACTITIONER 05/30/17 01/26/24 Dorian Christy MD [address] [place] [phone] CARDIOVASCULAR DISEASE 06/30/17 4 Yanick Jackson MD [address] [place] [address] PULMONARY DISEASE 10/28/17 Gokul Mayorga MD [address] [place] [address] EP Theology Teacher CLINICAL CARDIAC ELECTROPHYSIOLOGY 08/27/21 Chante Lucas MD [address] [place] [phone] INTERVENTIONAL CARDIOLOGY 11/20/2310/18 Teri Jerome PA-C [address] [place] [address] Referring Physician PHYSICIAN CHIMNEY CONSTRUCTION SUPERVISOR 10/17/24 documented as of this encounter
--- OUTSIDE RECORDS SUMMARY | 2024-10-30 09:31 | XMS_ITS | Encounter Summary ---
Author Organization [facility] Address [address] [place] [id number] Care Team Providers Care Assistant Clinical Director Name Role Phone Tita Mccain APRN FOREST MANAGER-C Unavailable [phone] Dorian Christy MD Unavailable [phone] Dangelo Adames MD Primary Care Provider [phone] Yanick Jackson MD Unavailable [phone] Gokul Mayorga MD Unavailable [phone] Chante Lucas MD Unavailable [phone] Teri Jerome PA-C Unavailable [phone] Encounter Details Date Type Department Care Team (Late st Contact Info) Description 11/21/2018 Abstract SFL CONVERSION [address] [place] [address] , Generic Conversion, Social History Tobacco Use Types Packs/Day Years Used Date Smoking Tobacco: Former Cigarettes 1 50 Smokeless Tobacco: Never Alcohol Use Standard Drinks/Week Comments No 0 (1 standard drink = 0.6 oz pur e alcohol) Sex and Gender Information Value Date Recorded Sex Assigned at Male 08/09/2024 3:31 PM DISTRICT PLANT SUPERINTENDENT Legal Sex Male 11:57 PM CDT Gender Identity Male 06/14/2019 10:46 AM DISTRICT PLANT SUPERINTENDENT Sexual Orientation Not on file Occupation Industry [...] Rule Out 08/09/2024 08/09/2024 08/09/2024 4:36 PM DISTRICT PLANT SUPERINTENDENT documented as of this encounter Care Teams Assistant Clinical Director Relationship Specialty Start Date End Date Dangelo Adames MD [address] [place] [id number] PCP - General INTERNAL MEDICINE 10/24/17 Tita Mccain APRN, FOREST MANAGER-C [address] [place] [address] [address] [place] [address] NURSE PRACTITIONER 05/30/17 01/26/24 Dorian Christy MD [address] [place] [address] [phone] CARDIOVASCULAR DISEASE 06/30/17 4 Yanick Jackson MD [address] [place] [address] [phone] PULMONARY DISEASE 10/28/17 Goklu Mayorga MD [address] [place] [phone] EP Casting Coordinator CLINICAL CARDIAC ELECTROPHYSIOLOGY 08/27/21 Chante Lucas MD [address] [place] [address] [id number] INTERVENTIONAL CARDIOLOGY 11/20/2310/18 Teri Jerome PA-C [address] [place] [address] [id number] Referring Physician PHYSICIAN CHILD CARE CENTER ASSISTANT DIRECTOR 10/17/24 documented as of this encounter
--- OUTSIDE RECORDS SUMMARY | 2024-10-30 09:31 | XMS_ITS | Continuity of Care Document ---
Author Name [facility] Organization [facility] Care Team Providers Care Billet Heater Name Role Phone [facility] Unavailable Unavailable Problems Combined list of problems from Department of Defense and Veterans Affairs facilities. It does not include entries that were removed or entered in error. Problem Status Onset Date Problem Type Date of Resolution Comments Source Actinic keratosis Active Condition [facility] - Atrial Fibrillation ([facility] [id number]) Active Condition [facility] Allergic rhinitis Active Condition [facility] Anemia Active Condition Jun 15 19 Entered By: CHAVEZ GALICIA Comment: EGD/colonscopy 05/2719 - polyps, left diverticulosis, int/ext hemorrhoids, ?Barrets - path pending [facility] Anxiety Disorder NOS Active Condition Mar 23, 2005 Entered By: REJI LOVE Comment: and Depression. PCP rx. [facility] Atrial fibrillation Active Condition [facility] CHF - Congestive Heart Failure ([facility] 92559749) Active Condition Jul 09, 2019 Entered By: CHAVEZ GALICIA Comment: EF 35-40% 2021 Entered By: CHAVEZ GALICIA Comment: EF 40-45% 12/05 [facility] Chronic obstructive lung disease Active Condition [facility] Chronic Obstructive Pulmonary Disease Active Condition Jul 01 Entered By: REJI LOVE Comment: Mod.Severe, fev1 1.75->2.0. Quit Cigs [facility] Colonic Polyps Active Condition [facility] Congestive heart failure Active Condition [facility] Coronary arteriosclerosis Active Condition [facility] Coronary Artery Disease Active Condition Jul 01, 2002 Entered By: REJI LOVE Comment: s/p'97imi&2sten tsRCA; ss:fixed inf.defectJul 2004 Entered By: REJI LOVE Comment: , Exerc.Stress (no iso.) NormalApr 2005 Entered By: REJI LOVE Comment: Hsa49causit->la rger imi defect +lve, no ischemia, ef=38% [facility] Diabetic neuropathy Active Condition [facility] Exposure to Potentially Hazardous Substance ([facility] [id number]) Active Condition [facility] Family History of Malignant Neoplasm of Gastrointestinal Tract (ICD-9-CM V16.0) Active Condition [facility] Gastroesophageal reflux disease Active Condition [facility] Gastroesophageal reflux disease without esophagitis Active Condition [facility] Gastroesophageal Reflux Disorder Active Condition Jul 01, 2002 Entered By: REJI LOVE Comment: Hx esophageal ulcer [facility] Hyperlipidemia Active Condition [facility] Hyperlipidemia, Familial Combined Active Condition [facility] Hypertension Active Condition [facility] Hypertension Active Condition [facility] Hypertrophy (Benign) of Prostate 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 (ICD-9-CM 600.00) Active Condition Oct 13 Entered By: REJI LOVE Comment: postop urine retention; TrusBxProst [facility] Kidney stone Active Condition [facility] Long-term current use of anticoagulant Active Condition [facility] Mixed hyperlipidemia Active Condition [facility] Moderate chronic obstructive pulmonary disease Active Condition [facility] Obstructive sleep apnea syndrome Active Condition [facility] Osteoarthritis Active Condition Jun 162002 Entered By: REJI LOVE Comment: knees [facility] Parotid Neoplasms Active Condition Ja 2002 Entered By: REJI LOVE Comment: s/p'99 Lozano Rt.total parotidectomy B9 adenoma [facility] Raised prostate specific antigen Active Condition [facility] Restless Legs * (ICD-9-CM 333.99) Active Condition Apr 14 Entered By: REJI LOVE Comment: No rx, and not confirmed on Sleep study->cpap [facility] Routine Medical Exam Active Condition [facility] Sensorineural Hearing Loss Active Condition Jun 22, 2007 Entered By: REJI LOVE Comment: Audio (occup. noise exposed), w[facility] elig. [facility] Sensorineural hearing loss, bilateral Active [facility] Sleep Apnea W/Hypersomnulence Active Condition Aug 29 Entered By: REJI LOVE Comment: Suspected, but no '06 or '07 followthru on sleep [id number] Entered By: REJI LOVE Comment: Study +MARY, rx CPAP [id number] trial [facility] Type 2 diabetes mellitus Active Condition [facility] Type 2 diabetes mellitus without complication Active Condition [facility] Weight loss Active Condition [facility] Abdominal Pain of the Right Upper Quadrant (ICD-9-CM 789.01) Inactive Condition 01/21/2006 Jan 21, 2006 Entered By: REJI LOVE Comment: Resolved, after [facility] Inactive Condition 03/15/2009 [facility] Cholelithiasis * (ICD-9-CM 574.20) Inactive Condition 01/21/2006 Jan 21 Entered By: REJI LOVE Comment: [facility] pain Inactive Condition 11/01/2020 [facility] Hypokalemia Inactive Condition 11/01/2020 [facility] Personal History of Tobacco Use (ICD-9-CM V15.82) Inactive Condition 08/29/2006 [facility] Polyp of colon Inactive Condition 10/29/2021 [facility] Diagnosis: ICD-10-CM H90.3 Sensorineural hearing loss, bilateral Active Diagnosis [facility] Diagnosis: ICD-10-CM E11.9 Type 2 diabetes mellitus without complications Active Diagnosis [facility] Diagnosis: ICD-10-CM L57.0 Actinic keratosis Active Diagnosis [facility] Diagnosis: ICD-10-CM I48.91 Unspecified atrial fibrillation Active Diagnosis [facility] Diagnosis: ICD-10-CM J44.9 Chronic obstructive pulmonary disease, unspecified Active Diagnosis [facility] Diagnosis: ICD-10-CM L72.3 Sebaceous cyst Active Diagnosis [facility] Diagnosis: ICD-10-CM R97.20 Elevated prostate specific antigen [PSA] Active Diagnosis [facility] Diagnosis: ICD-10-CM Z57.5 Occupational exposure to toxic agents in other industries Active Diagnosis [facility] Diagnosis: ICD-10-CM R05.1 Acute cough Active Diagnosis [facility] Medications Combined list of outpatient medications [...] G RESPIR ATORY (INHAL ATION) ACTIVE 06/18/2025 [id number] 5 JENNY GALICIA 2024 3 [facility] ALBUTEROL 90MCG/ACTUA T (CFC-F) INHL,ORAL,8 .5GM DOSE COUNTER INHALE 2 PUFFS BY MOUTH FOUR TIMES A DAY NEEDED FOR BREATHIN G RESPIR ATORY (INHAL ATION) [facility] 06/25/2024 [id number] 4 JENNY GALICIA 2023 3 [facility] APIXABAN 5MG TAB TAKE ONE TABLET BY MOUTH TWICE A DAY BLOOD THINNER ORAL ACTIVE 03/05/2025 [id number] 5 JENNY GALICIA 2023 180 [facility] APIXABAN 5MG TAB TAKE ONE TABLET BY MOUTH TWICE A DAY BLOOD THINNER ORAL DISCONT [facility] 12/28/2023 [id number] 4 JENNY GALICIA 2022 180 [facility] ASPIRIN 325MG TAB,EC TAKE ONE TABLET BY MOUTH EVERY DAY ORAL ACTIVE Denny LOVE 2003 [facility] CHOLECALCIF BERE 25MCG (1,000UNIT) TAB TAKE ONE TABLET BY MOUTH ONCE A DAY ORAL ACTIVE CHELSEA CRISTINA 2009 [facility] FEXOFENADIN E HCL 180MG TAB TAKE ONE TABLET BY MOUTH DAILY FOR ALLERGIE S ORAL ACTIVE 06/29/2025 [id number] JENNY GALICIA 2024 90 [facility] FLUOROURACI L 5% CREAM,TOP APPLY THIN FILM TOPICALL Y TWICE A DAY APPLY FOR 2 WEEKS TOPICA L 07/28/2024 [id number] 5 JENNY GALICIA 2024 40 [facility] FLUTICASONE 100MCG/SALM ETEROL 50MCG INHL,ORAL,D ISKUS,60 INHALE 1 PUFF BY MOUTH TWICE A DAY FOR ASTHMA/C OPD. RINSE MOUTH AFTER USE. RINSE MOUTH AFER EACH USE. RESPIR ATORY (INHAL ATION) 01/29/2024 [id number] 4 JENNY GALICIA 2022 3 [facility] FLUTICASONE PROPIONATE 50MCG/SPRAY SOLN,NASAL, 16GM INSTILL 2 SPRAYS IN EACH NOSTRIL DAILY FOR NASAL ALLERGIE S NASAL ACTIVE 06/29/2025 [id number] FRIDAMO NICOLA HERRERA 2024 1 [facility] FUROSEMIDE 40MG TAB TAKE ONE TABLET BY MOUTH DAILY FOR BLOOD PRESSURE /WATER PILL ORAL ACTIVE 12/24/2024 [id number] 5 JENNY GALICIA 2023 90 [facility] FUROSEMIDE 40MG TAB TAKE ONE TABLET BY MOUTH DAILY FOR BLOOD PRESSURE /WATER PILL ORAL DISCONT INUED 12/28/2023 [id number] 4 JENNY GALICIA 2022 90 [facility] GABAPENTIN 600MG TAB TAKE ONE TABLET BY MOUTH TWICE A DAY ORAL ACTIVE 12/24/2024 [id number] 5 JENNY GALICIA 2023 180 [facility] GABAPENTIN 600MG TAB TAKE ONE TABLET BY MOUTH TWICE A DAY ORAL DISCONT INUED 12/28/2023 [id number] JENNY GALICIA 2022 180 [facility] METFORMIN HCL 1000MG TAB TAKE ONE TABLET BY MOUTH TWO TIMES A DAY BEFORE MORNING AND EVENING MEAL WITH FOOD - FOR DIABETES ORAL ACTIVE 12/24/2024 [id number] 5 JENNY GALICIA 2023 180 [facility] METFORMIN HCL 1000MG TAB TAKE ONE TABLET BY MOUTH TWO TIMES A DAY BEFORE MORNING AND EVENING MEAL WITH FOOD - FOR DIABETES ORAL DISCONT INUED 12/24/2023 [id number] 4 JENNY GALICIA 2022 180 [facility] METOPROLOL SUCCINATE 25MG TAB,SA TAKE ONE-HALF TABLET BY MOUTH EVERY MORNING FOR BLOOD PRESSURE ORAL DISCONT INUED 11/22/2023 [id number] JENNY GALICIA 2022 45 [facility] METOPROLOL SUCCINATE 25MG TAB,SA TAKE ONE-HALF TABLET BY MOUTH EVERY MORNING FOR BLOOD PRESSURE ORAL 08/05/2024 [id number] 5 JENNY GALICIA 2023 45 [facility] OMEGA-3-ACI D ETHYL ESTERS 1000MG CAP,ORAL TAKE 1 CAPSULE BY MOUTH DAILY ORAL ACTIVE JENNY GALICIA 2014 [facility] OMEPRAZOLE 20MG CAP,EC TAKE TWO CAPSULES BY MOUTH EVERY MORNING 30 MINUTES BEFORE BREAKFAS T FOR STOMACH ACID ORAL ACTIVE 06/29/2025 [id number] 5 JENNY GALICIA 2024 180 [facility] OMEPRAZOLE 20MG CAP,EC TAKE TWO CAPSULES BY MOUTH EVERY MORNING 30 MINUTES BEFORE BREAKFAS T FOR STOMACH ACID ORAL DISCONT INUED 06/25/2024 [id number] 5 JENNY GALICIA 2023 180 [facility] ROFLUMILAST 500MCG TAB TAKE ONE TABLET BY MOUTH EVERY DAY ORAL SUSPEND ED 01/23/2025 [id number] DRU COLEMAN 2023 30 [facility] SACUBITRIL 49MG/VALSAR GILLIS 51MG TAB TAKE 1 TABLET BY MOUTH TWICE A DAY FOR HEART FAILURE. ORAL ACTIVE 12/24/2024 [id number] 5 JENNY GALICIA 2023 180 [facility] SACUBITRIL 49MG/VALSAR GILLIS 51MG TAB TAKE 1 TABLET BY MOUTH TWICE A DAY FOR HEART FAILURE. ORAL DISCONT INUED 12/24/2023 [id number] 4 JENNY GALICIA 2022 180 [facility] SIMVASTATIN 40MG TAB TAKE ONE TABLET BY MOUTH AT BEDTIME AVOID GRAPEFRU IT CALL YOUR PROVIDER IF YOU HAVE MUSCLE PAIN, TENDERNE SS OR WEAKNESS - FOR CHOLESTE ROL AVOID GRAPEFRU IT CALL YOUR PROVIDER IF YOU HAVE MUSCLE PAIN, TENDERNE SS OR WEAKNESS - FOR CHOLESTE ROL ORAL ACTIVE 06/29/2025 [id number] 5 JENNY GALICIA 2024 90 [facility] SIMVASTATIN 40MG TAB TAKE ONE TABLET BY MOUTH AT BEDTIME AVOID GRAPEFRU IT CALL YOUR PROVIDER IF YOU HAVE MUSCLE PAIN, TENDERNE SS OR WEAKNESS - FOR CHOLESTE ROL AVOID GRAPEFRU IT CALL YOUR PROVIDER IF YOU HAVE MUSCLE PAIN, TENDERNE SS OR WEAKNESS - FOR CHOLESTE ROL ORAL DISCONT INUED 06/25/2024 [id number] 4 JENNY GALICIA 2023 90 [facility] SOTALOL HCL 120MG TAB TAKE ONE TABLET BY MOUTH TWICE A DAY ORAL ACTIVE 12/24/2024 [id number] 5 JENNY GALICIA 2023 180 [facility] SOTALOL HCL 120MG TAB TAKE ONE TABLET BY MOUTH TWICE A DAY ORAL DISCONT INUED 11/22/2023 [id number] JENNY GALICIA 2022 180 [facility] SPIRONOLACT ONE 25MG TAB TAKE ONE-HALF TABLET BY MOUTH DAILY FOR BLOOD PRESSURE /WATER PILL ORAL ACTIVE 12/24/2024 [id number] 5 JENNY GALICIA 2023 45 [facility] SPIRONOLACT ONE 25MG TAB TAKE ONE-HALF TABLET BY MOUTH DAILY FOR BLOOD PRESSURE /WATER PILL ORAL DISCONT INUED 12/28/2023 [id number] JENNY GALICIA 2022 45 [facility] TAMSULOSIN HCL 0.4MG CAP TAKE ONE CAPSULE BY MOUTH EVERY DAY TAKE 30 MINUTES AFTER A MEAL ORAL ACTIVE 11/23/2024 [id number] PARISA,JA Criss 2024 90 [facility] TIOTROPIUM 18MCG CAP,INHL,30 INHALE CONTENTS OF ONE CAPSULE BY INHALER (AFTER INSERTIN G CAPSULE IN DEVICE) BY MOUTH EVERY DAY FOR INHALATI ON ONLY, DO NOT SWALLOW. FOR BREATHIN G RESPIR ATORY (INHAL ATION) DISCONT INUED 06/25/2024 [id number] 4 JENNY GALICIA 2023 3 [facility] TIOTROPIUM 2.5MCG/ACTU AT INHL,ORAL,6 0D,4GM INHALE TWO INHALATI ONS BY MOUTH EVERY DAY MAX OF TWO INHALATI ONS IN 24 HOURS. RESPIR ATORY (INHAL ATION) ACTIVE 06/18/2025 [id number] 5 JENNY GALICIA 2024 3 [facility] TIOTROPIUM 2.5MCG/ACTU AT INHL,ORAL,6 0D,4GM INHALE TWO INHALATI ONS BY MOUTH EVERY DAY MAX OF TWO INHALATI ONS IN 24 HOURS. RESPIR ATORY (INHAL ATION) DISCONT INUED 06/25/2024 [id number] JENNY GALICIA 2023 3 [facility] Allergies, Adverse Reactions, Alerts Combined list of allergies from Department of Defense and Veterans Affairs facilities. It does not include entries that were removed or entered in error. Substance Category Reaction Severity Reaction type Status Date Reported Comments Source LISINOPRIL Propensity to adverse reactions to drug (finding) Anxiety, Low blood pressure, Drowsy, Itching of eye active 1 [facility] NIASPAN 500MG ER TABLET Propensity to adverse reactions to drug (finding) Flushing active 0 [facility] PNEUMOVAX 23 Propensity to adverse reactions to drug (finding) SWELLING (NON-SPEC IFIC) active 4 [facility] Immunizations Combined list of available immunizations from the Department of Defense and Veterans Affairs facilities. Immunization Series Date Given Administered By Site Reaction Lot Number CVX Code Drug Director Construction Services Status Comments Source INFLUENZA, HIGH-DOSE, TRIVALENT, PF 2024 HABIB,SONJA L RIGHT DELTO ID [id number] 135 complet ed [facility] TDAP 2023 HABIB,SONJA L LEFT DELTO ID [id number] 115 complet ed [facility] INFLUENZA, HIGH-DOSE, QUADRIVALENT 2023 HABIB,SONJA L LEFT DELTO ID [id number] 197 complet ed [facility] INFLUENZA, SPLIT VIRUS, TRIVALENT, PRESERVATIVE 1 2023 141 complet ed HISTORICA L INFORMATI ON - FROM OTHER [facility] ZOSTER RECOMBINANT 2 2022 EMILIA SANDOVAL RIGHT DELTO ID [id number] 187 complet ed [facility] PNEUMOCOCCAL CONJUGATE PCV20, POLYSACCHARID E [id number] CONJUGATE, ADJUVANT, PF 2022 JOSE PETER LEFT DELTO ID [id number] 216 complet ed [facility] ZOSTER RECOMBINANT 2022 JOSE PETER LEFT DELTO ID [id number] 187 complet ed [facility] INFLUENZA VACCINE, QUADRIVALENT, ADJUVANTED 2021 JOE ANTHONY RIGHT DELTO ID [id number] 205 complet ed [facility] INFLUENZA, INJECTABLE, QUADRIVALENT, PRESERVATIVE FREE 2021 150 complet ed [facility] COVID-19 (MODERNA), MRNA, LNP-S, PF, 100 MCG/0.5 ML DOSE 3 2020 207 complet ed MOD; [id number]; 2 [facility] COVID-19 (MODERNA), MRNA, LNP-S, PF, 100 MCG/0.5 ML DOSE 2 2020 207 complet ed MOD; [id number]; 1 [facility] COVID-19 (MODERNA), MRNA, LNP-S, PF, 100 MCG/0.5 ML DOSE 1 2020 207 complet ed MOD; [id number]; 1 [facility] COVID-19 (MODERNA), MRNA, LNP-S, PF, 100 MCG/0.5ML DOSE OR 50 MCG/0.25ML DOSE 1 2020 207 complet ed HISTORICA L INFORMATI ON - FROM OTHER REGISTRY, [facility] INFLUENZA, UNSPECIFIED FORMULATION 2019 88 complet ed [facility] PNEUMOCOCCAL POLYSACCHARID E PPV23 2019 33 complet ed [facility] PNEUMOCOCCAL POLYSACCHARID E PPV23 2019 33 complet ed [facility] INFLUENZA, TRIVALENT, ADJUVANTED 2018 168 complet ed [facility] INFLUENZA, TRIVALENT, ADJUVANTED 2017 168 complet ed [facility] INFLUENZA, INJECTABLE, QUADRIVALENT 2 2016 158 complet ed HISTORICA L INFORMATI ON - FROM OTHER REGISTRY, [facility] INFLUENZA, SEASONAL, INJECTABLE, PRESERVATIVE FREE 2016 140 complet ed [facility] INFLUENZA, SEASONAL, INJECTABLE, PRESERVATIVE FREE 2015 140 complet ed [facility] ZOSTER LIVE 2014 121 complet ed [facility] INFLUENZA, INJECTABLE, QUADRIVALENT, PRESERVATIVE FREE 1 2014 150 complet ed HISTORICA L INFORMATI ON - FROM OTHER REGISTRY, [facility] INFLUENZA, UNSPECIFIED FORMULATION 2014 88 complet ed [facility] INFLUENZA, UNSPECIFIED FORMULATION 2013 88 complet ed [facility] INFLUENZA, UNSPECIFIED FORMULATION 2011 88 complet ed [facility] TD(ADULT) UNSPECIFIED FORMULATION 2011 139 complet ed Right Deltoid [facility] INFLUENZA, UNSPECIFIED FORMULATION 2010 88 complet ed [facility] INFLUENZA, UNSPECIFIED FORMULATION 2009 88 complet ed [facility] TDAP 2009 115 complet ed [facility] INFLUENZA, UNSPECIFIED FORMULATION 2009 88 complet ed [facility] NOVEL INFLUENZA-H1N 1-09, ALL FORMULATIONS 2008 128 complet ed [facility] PNEUMOCOCCAL, UNSPECIFIED FORMULATION 2008 109 complet ed [facility] INFLUENZA, UNSPECIFIED FORMULATION 2008 88 [facility] ZOSTER LIVE [address] [facility] INFLUENZA, UNSPECIFIED FORMULATION 2007 88 complet ed [facility] INFLUENZA, UNSPECIFIED FORMULATION 2006 88 complet [facility] INFLUENZA, UNSPECIFIED FORMULATION 2005 88 complet ed [facility] INFLUENZA, UNSPECIFIED FORMULATION 2004 88 complet ed [facility] INFLUENZA (HISTORICAL) 2003 88 [facility] PNEUMOCOCCAL, UNSPECIFIED FORMULATION 2003 109 [facility] INFLUENZA, UNSPECIFIED FORMULATION 2002 88 complet [facility] TD(ADULT) UNSPECIFIED FORMULATION [address] [facility] INFLUENZA (HISTORICAL) 2001 88 complet ed [facility] INFLUENZA, UNSPECIFIED FORMULATION 2000 88 [facility] Results Combined list of recent chemistry, hematology and other laboratory results from Department of Defense and Veterans Affairs, ranging from 15 months to all on record, depending upon the facility. Order Name Results Value Reference Range Date Interpretation Specimen Comments Source A1C % HEMOGLOBIN A1C/HEMOGLO BIN.TOTAL IN BLOOD [...] Ref: http://[email or web address] ngsp.org/[place] Pdata.asp Ordering Provider: DESTIN GALICIA Report Released Date/Time: Jun 01, 2024 03:00 PM Reporting Lab: [facility] [address] [facility] [phone] Performing Lab: [facility] [address] [facility] [phone] [facility] CBC W/DIFF LEUKOCYTES [#/VOLUME] IN BLOOD BY AUTOMATED COUNT 9.1 10*3/u L 4.0 - 11.0 06/14 Specimen Type: BLOOD No comment entered. Ordering Provider: DESTIN GALICIA Report Released Date/Time: Jun 01, 2024 03:00 PM Reporting Lab: [facility] [address] [place] [phone] Performing Lab: [facility] [address] [place] [phone] [facility] CBC W/DIFF ERYTHROCYTE S [#/VOLUME] IN BLOOD BY AUTOMATED COUNT 5.16 10*6/u L 4.20 - 5.70 06/14 Specimen Type: BLOOD No comment entered. Ordering Provider: DESTIN GALICIA Report Released Date/Time: Jun 01, 2024 03:00 PM Reporting Lab: [facility] [address] [place] [phone] Performing Lab: [facility] [address] [place] [phone] [facility] CBC W/DIFF HEMOGLOBIN [MASS/VOLUM E] IN BLOOD 15.4 g/dL 13.0 - 17.0 06/14 Specimen Type: BLOOD No comment entered. Ordering Provider: DESTIN GALICIA Report Released Date/Time: Jun 01, 2024 03:00 PM Reporting Lab: [facility] [address] [place] [phone] Performing Lab: [facility] [address] [place] [phone] [facility] CBC W/DIFF HEMATOCRIT [VOLUME FRACTION] OF BLOOD BY AUTOMATED COUNT 45.9 40.0 - 51.0 06/14 Specimen Type: BLOOD No comment entered. Ordering Provider: DESTIN GALICIA Report Released Date/Time: Jun 01, 2024 03:00 PM Reporting Lab: [facility] [address] [facility] [phone] Performing Lab: [facility] [address] [place] [phone] [facility] CBC W/DIFF MCV [ENTITIC VOLUME] BY AUTOMATED COUNT 89.0 fL 82.0 - 99.0 06/14 Specimen Type: BLOOD No comment entered. Ordering Provider: DESTIN GALICIA Report Released Date/Time: Jun 01, 2024 03:00 PM Reporting Lab: [address] [phone] Performing Lab: [address] [phone] [facility] CBC W/DIFF MCHC [MASS/VOLUM E] BY AUTOMATED COUNT 29.8 pg 27.0 - 34.0 06/14 Specimen Type: BLOOD No comment entered. Ordering Provider: DESTIN GALICIA Report Released Date/Time: Jun 01, 2024 03:00 PM Reporting Lab: [address] [phone] Performing Lab: [address] [phone] [facility] CBC W/DIFF MCHC [MASS/VOLUM E] BY AUTOMATED COUNT 33.6 g/dL 31.0 - 37.0 06/14 Specimen Type: BLOOD No comment entered. Ordering Provider: DESTIN GALICIA Report Released Date/Time: Jun 01, 2024 03:00 PM Reporting Lab: [address] [phone] Performing Lab: [address] [phone] [facility] CBC W/DIFF PLATELET MEAN VOLUME [ENTITIC VOLUME] IN BLOOD BY AUTOMATED COUNT 9.6 fL 8.0 - 12.0 06/14 Specimen Type: BLOOD No comment entered. Ordering Provider: DESTIN GALICIA Report Released Date/Time: Jun 01, 2024 03:00 PM Reporting Lab: [address] [phone] Performing Lab: [address] [phone] [facility] CBC W/DIFF PLATELETS [#/VOLUME] IN BLOOD BY AUTOMATED COUNT 322 10*3/u L 130 - 400 06/14 Specimen Type: BLOOD No comment entered. Ordering Provider: DESTIN GALICIA Report Released Date/Time: Jun 01, 2024 03:00 PM Reporting Lab: [place] [address] [facility] [phone] Performing Lab: [facility] [address] [facility] [phone] [facility] CBC W/DIFF ERYTHROCYTE DISTRIBUTIO N WIDTH [RATIO] BY AUTOMATED COUNT 12.2 < 15.0 - 15.0 06/14 Specimen Type: BLOOD No comment entered. Ordering Provider: DESTIN GALICIA Report Released Date/Time: Jun 01, 2024 03:00 PM Reporting Lab: [facility] [address] [facility] [phone] Performing Lab: [facility] [address] [facility] [phone] [facility] CBC W/DIFF NEUTROPHILS /100 LEUKOCYTES IN BLOOD BY AUTOMATED COUNT 72.3 06/14 Specimen Type: BLOOD No comment entered. Ordering Provider: DESTIN GALICIA Report Released Date/Time: Jun 01, 2024 03:00 PM Reporting Lab: [facility] [address] [place] [phone] Performing Lab: [facility] [address] [place] [phone] [facility] CBC W/DIFF LYMPHOCYTES /100 LEUKOCYTES IN BLOOD BY AUTOMATED COUNT 18.2 06/14 Specimen Type: BLOOD No comment entered. Ordering Provider: DESTIN GALICIA Report Released Date/Time: Jun 01, 2024 03:00 PM Reporting Lab: [facility] [address] [facility] [address] Performing Lab: [facility] [address] [place] [address] [facility] CBC W/DIFF MONOCYTES/1 00 LEUKOCYTES IN BLOOD BY AUTOMATED COUNT 7.6 06/14 Specimen Type: BLOOD No comment entered. Ordering Provider: DESTIN GALICIA Report Released Date/Time: Jun 01, 2024 03:00 PM Reporting Lab: [facility] [address] [facility] [address] Performing Lab: [facility] [address] [place] [address] [facility] CBC W/DIFF EOSINOPHILS /100 LEUKOCYTES IN BLOOD BY AUTOMATED COUNT 0.7 06/14 Specimen Type: BLOOD No comment entered. Ordering Provider: DESTIN GALICIA Report Released Date/Time: Jun 01, 2024 03:00 PM Reporting Lab: [address] [address] Performing Lab: [address] [address] [facility] CBC W/DIFF BASOPHILS/1 00 LEUKOCYTES IN BLOOD BY AUTOMATED COUNT 0.9 06/14 Specimen Type: BLOOD No comment entered. Ordering Provider: DESTIN GALICIA Report Released Date/Time: Jun 01, 2024 03:00 PM Reporting Lab: [address] [address] Performing Lab: [address] [address] [facility] CBC W/DIFF IMMATURE GRANULOCYTE S/100 LEUKOCYTES IN BLOOD 0.3 06/14 Specimen Type: BLOOD No comment entered. Ordering Provider: DESTIN GALICIA Report Released Date/Time: Jun 01, 2024 03:00 PM Reporting Lab: [address] [address] Performing Lab: [address] [address] [facility] CBC W/DIFF NEUTROPHILS [#/VOLUME] IN BLOOD BY AUTOMATED COUNT 6.6 10*3/u L 1.5 - 8.0 06/14 Specimen Type: BLOOD No comment entered. Ordering Provider: DESTIN GALICIA Report Released Date/Time: Jun 01, 2024 03:00 PM Reporting Lab: [address] [address] Performing Lab: [address] [id number]|[id number]||2024-10-30 09:39:00|XR_ITS|FROHNERTP|Imaging|[id number]|"EXAMINATION: XR ribs LT 2V w CXR 2V DATE: 10/30/2024 09:21 INDICATION: Left chest wall pain post fall one day prior TECHNIQUE: PA and lateral views of the chest and 3 views of the left ribs were obtained. COMPARISON: Chest radiograph dated 01/26/2021 FINDINGS: No rib fractures identified. Linear discoid atelectasis/scarring projecting over the right hilum and anterolateral left lower lung zone. No pulmonary edema, pleural effusion or pneumothorax. Cardiomedia stinal silhouette is normal. Cholecystectomy clips in right upper quadrant. IMPRESSION: 1. No rib fractures. 2. Linear discoid atelectasis/scarring at the right mid and left lower lung zones. No other acute car diopulmonary disease. Reviewed, dictated and finalized at location A. IMPRESSION: 1. No rib fractures. 2. Linear discoid atelectasis/scarring at the right mid and left lower lung zon es. No other acute cardiopulmonary disease. "
--- OUTSIDE RECORDS SUMMARY | 2024-10-30 09:31 | XMS_ITS | Encounter Summary ---
Author Organization [facility] Address [address] [place] [address] Care Team Providers Care Nuclear Reactor Technician Name Role Phone Tita Mccain APRN, NP-C Unavailable Dorian Christy MD Unavailable [phone] Dangelo Adames MD Primary Care Provider [phone] Yanick Jackson MD Unavailable [phone] Gokul Mayorga MD Unavailable [phone] Chante Lucas MD Unavailable [phone] Teri Jerome PA-C Unavailable [phone] Encounter Details Date Type Department Care Team (Late st Contact Info) Description 07/17/2022 Hospital Orders Only [facility] [address] [place] [address] Mary Cadena RN Anesthesia Record Procedure Summary [...] place to sleep or slept in a chcf (including now)? No 07/18/2022 Sex and Gender Information Value Date Recorded Sex Assigned at Male 08/09/2024 3:31 PM DIE CUTTER DIAMOND Legal Sex Male 11:57 PM CDT Gender Identity Male 06/14/2019 10:46 AM DIE CUTTER DIAMOND Sexual Orientation Not on file Occupation Industry Job Start Date Job End Date Not on file Not on file Not on file Not on file COVID-19 Exposure Response Date Recorded In the last 10 days, have yo u been in contact with someone who was confirmed or suspected to have Coronavirus/COVID-19? No / Unsure 07/17/2022 1:59 PM DIE CUTTER DIAMOND documented as of this encounter Functional Status * Question Answer Date of Assessment Author Status Do you have serious difficulty walking or climbing stairs? No 07/18/2022 3:16 PM DIE CUTTER DIAMOND Kenya Mcgraw RN Ac tive * Question Answer Date of Assessment Author Status Do you have difficulty dressing or bathing? No 07/18/2022 3:16 PM DIE CUTTER DIAMOND Kenya Mcgraw R N Active Because of [...] 7:11 AM Lalo Hale RN Active * [place] Suicide Severity Rating Scale (Screener/Recent Self-Report) Question [...] Rule Out 08/09/2024 08/09/2024 08/09/2024 4:36 PM DIE CUTTER DIAMOND documented as of this encounter Care Teams Nuclear Reactor Technician Relationship Specialty Start Date End Date Dangelo Adames MD [address] [place] [address] PCP - General INTERNAL MEDICINE 10/24/17 Tita Mccain APRN, PEDIATRIC INTENSIVE PHYSICIAN-C [address] [place] [address] [address] [place] [address] NURSE PRACTITIONER 05/30/17 01/26/24 Dorian Christy MD [address] [place] [phone] CARDIOVASCULAR DISEASE 06/30/17 4 Yanick Jackson MD [address] [address] PULMONARY DISEASE 10/28/17 Gokul Mayorga MD [address] [place] [address] EP Hydropulper CLINICAL CARDIAC ELECTROPHYSIOLOGY 08/27/21 Chante Lucas MD [address] [place] [address] INTERVENTIONAL CARDIOLOGY 11/20/2310/18 Teri Jerome PA-C [address] [place] [address] Referring Physician PHYSICIAN STERILE PROCESS TECH 10/17/24 documented as of this encounter
--- OUTSIDE RECORDS SUMMARY | 2024-10-30 09:31 | XMS_ITS | Encounter Summary ---
Author Organization [facility] Address [facility] [place] [address] Care Team Providers Care Operating Cost Clerk Name Role Phone Tita Mccain APRN, NP-C Unavailable Dorian Christy MD Unavailable [phone] Dangelo Adames MD Primary Care Provider [phone] Yanick Jackson MD Unavailable [phone] Gokul Mayorga MD Unavailable [phone] Chante Lucas MD Unavailable [phone] Teri Jerome PA-C Unavailable [phone] Encounter Details Date Type Department Care Team (Late st Contact Info) Description 07/12/2019 Abstract [facility] [address] [place] [address] Abstract, Doc [facility] Social History Tobacco Use Types Packs/Day Years Used Date Smoking Tobacco: Former Cigarettes 1 50 1 954 - 2004 Smokeless Tobacco: Never Alcohol Use Standard Drinks/Week Comments No 0 (1 standard drink = 0.6 oz pur e alcohol) Sex and Gender Information Value Date Recorded Sex Assigned at Male 08/09/2024 3:31 PM SPRING ASSEMBLER Legal Sex Male 11:57 PM CDT Gender Identity Male 06/14/2019 10:46 AM SPRING ASSEMBLER Sexual Orientation Not on file Occupation Industry Job Start Date Job End Date Not on file Not on file Not on file Not on file documented as of this encounter Functional Status * RETIRED Are you deaf or do you have serious difficulty hearing Answer Date of Assessment Author Status No 06/14/2019 11:02 AM SPRING ASSEMBLER Acti ve * RETIRED Are you blind or do you have serious difficulty seeing, even when wearing glasses? Answer Date of Assessment Author Status No 06/14/2019 11:02 AM SPRING ASSEMBLER Acti ve * Do you have serious [...] Final Result * PROTIME/INR, VENOUS (07/01/2019) Pathologist [facility] PROTIME WHOLE BLOOD 12.3 9.6 - 12.7 INR WHOLE BLOOD 1.10 07/01/2019 us Doc [facility] Abstract LABORATORY Final Result * (ABNORMAL) CBC, AUTO, NO DIFF (07/01/2019) Pathologist [facility] WBC 7.9 4.23 - 9.07 RBC 4.97 [...] Rule Out 08/09/2024 08/09/2024 08/09/2024 4:36 PM SPRING ASSEMBLER documented as of this encounter Care Teams Operating Cost Clerk Relationship Specialty Start Date End Date Dangelo Adames MD [address] [place] [address] PCP - General INTERNAL MEDICINE 10/24/17 Tita Mccain, FELT CUTTING MACHINE OPERATOR, METAL TRIMMER-C [address] [facility] [address] [place] [address] NURSE PRACTITIONER 05/30/17 01/26/24 Dorian Christy MD [address] [place] [address] CARDIOVASCULAR DISEASE 06/30/17 4 Yanick Jackson MD [address] [address] PULMONARY DISEASE 10/28/17 Gokul Mayorga MD [address] [place] [address] Deputy Clerk CLINICAL CARDIAC ELECTROPHYSIOLOGY 08/27/21 Chante Lucas MD [address] [place] [address] INTERVENTIONAL CARDIOLOGY 11/20/2310/18 Teri Jerome PA-C [address] [place] [address] Referring Physician PHYSICIAN CIGAR HEAD PUNCHER 10/17/24 documented as of this encounter
--- OUTSIDE RECORDS SUMMARY | 2024-10-30 09:31 | XMS_ITS | Encounter Summary ---
Author Organization [facility] Address [facility] [place] [address] Care Team Providers Care Exercise Manager Name Role Phone Tita Mccain APRN, NP-C Unavailable Dorian Christy MD Unavailable [phone] Dangelo Adames MD Primary Care Provider [phone] Yanick Jackson MD Unavailable [phone] Gokul Mayorga MD Unavailable [phone] Chante Lucas MD Unavailable [phone] Teri Jerome PA-C Unavailable [phone] Encounter Details Date Type Department Care Team (Late st Contact Info) Description 12/06/2021 Pre-Procedure Call [place] Pre/Post [address] [place] [address] Gokul Mayorga MD [address] [place] [address] Social History Tobacco Use Types Packs/Day Years Used Date Smoking Tobacco: Former Cigarettes 1 50 1 954 - 2004 Smokeless Tobacco: Never Alcohol Use Standard Drinks/Week Comments No 0 (1 standard drink = 0.6 oz pur e alcohol) Sex and Gender Information Value Date Recorded Sex Assigned at Male 08/09/2024 3:31 PM CATERING CHEF Legal Sex Male 11:57 PM CDT Gender Identity Male 06/14/2019 10:46 AM CATERING CHEF Sexual Orientation Not on file Occupation Industry [...] Assessment Author Status No 06/14/2019 11:02 AM CATERING CHEF Acti ve * RETIRED Are you blind or do you have serious difficulty seeing, even when wearing glasses? Answer Date of Assessment Author Status No 06/14/2019 11:02 AM CATERING CHEF Acti ve * Do you have serious [...] Rule Out 08/09/2024 08/09/2024 08/09/2024 4:36 PM CATERING CHEF documented as of this encounter Care Teams Exercise Manager Relationship Specialty Start Date End Date Dangelo Adames MD [address] [place] [address] [address] PCP - General INTERNAL MEDICINE 10/24/17 Tita Mccain APRN, MACHINIST JOB SETTER-C [address] [place] [address] [address] [place] [address] NURSE PRACTITIONER 05/30/17 01/26/24 Dorian Christy MD [address] [place] [phone] CARDIOVASCULAR DISEASE 06/30/17 4 Yanick Jackson MD [address] [place] [address] PULMONARY DISEASE 10/28/17 Gokul Mayorga MD [address] [place] [address] EP Parimutuel Cashier CLINICAL CARDIAC ELECTROPHYSIOLOGY 08/27/21 Chante Lucas MD [address] [place] [address] INTERVENTIONAL CARDIOLOGY 11/20/2310/18 Teri Jerome PA-C [address] [place] [address] Referring Physician PHYSICIAN SPECIAL PROCEDURES TECHNOLOGIST 10/17/24 documented as of this encounter
--- OUTSIDE RECORDS SUMMARY | 2024-10-30 09:31 | XMS_ITS | CONTINUITY OF CARE DOCUMENT ---
Author Name eric reyes Address Unknown Organization [facility] Address [address] [facility] [address] [place] [address] Phone [phone] Care Team Providers Care Bill Hiker Name Role Phone Monty Gaona MD Unavailable Karolina Berry Unavailable [phone] PROBLEMS Condition Status Date Provider Notes COPD active Monty Gaona MD SHORTNESS OF BREATH active Monty Sheikh HTN ESSENTIAL active Monty Gaona MD DYSLIPIDEMIA active Monty Gaona MD FATIGUE active Monty Gaona MD DIABETES MELLITUS active Monty Gaona MD TOBACCO USE, QUIT active Monty Gaona MD CAD - PREVIOUS DE AND STENTS ; DETAILS UNKNOWN >15 YEARS AGO active Monty Gaona MD ENCOUNTERS Date Type Provider Location Encounter Diag nosis - In-person encounter Office Visit Monty Gaona MD [facility] COPDSHORTNESS OF BREATHHTN ESSENTIALDYSLIPIDEMIAFATIGUEDIABETES MELLITUSTOBACCO USE, QUITCAD - PREVIOUS DE AND STENTS; DETAILS UNKNOWN >15 YEARS AGO [...] Payer name Policy type / Coverage type [facility] ID CARE IMPROVEMENT PLUS Commercial insurance svitlana al [id number] TREATMENT PLAN Date Name Performer : H is updated medication list for this problem includes: Lisinopril-hydrochlorothiazide 10-12.5 Mg Tabs (Lisinopril-hydrochlorothiazide) ..... One tablet daily Metoprolol Tartrate 100 Mg Tabs (Metoprolol tartrate) ..... One tab. twice daily Orders: S TR - Adenosine ([id number]) C omplete Echo ([id number]) Monty Gaona MD : H is updated medication list for this problem includes: Fenofibrate 145 Mg Tabs (Fenofibrate) ..... One tablet daily Zocor 40 Mg Tabs (Simvastatin) ..... One tab. at bedtime Orders: S TR - Adenosine ([id number]) C omplete Echo ([id number]) Monty Gaona MD : O rders: S TR - Adenosine ([id number]) C omplete Echo ([id number]) Monty Gaona MD : H is updated medication list for this problem includes: Lisinopril-hydrochlorothiazide 10-12.5 Mg Tabs (Lisinopril-hydrochlorothiazide) ..... One tablet daily Metoprolol Tartrate 100 Mg Tabs (Metoprolol tartrate) ..... One tab. twice daily Orders: S TR - Adenosine ([id number]) C omplete Echo ([id number]) Monty Gaona MD : H is updated medication list for this problem includes: Symbicort 160-4.5 Mcg/act Aero (Budesonide-formoterol fumarate) ..... 1 puff twice daily Advair Diskus 500-50 Mcg/dose Aepb (Fluticasone-salmeterol) ..... 1 puff twice daily Accuneb Nebu (Albuterol sulfate nebu) ..... 2 puffs prn Atrovent Hfa Aers (Ipratropium bromide hfa aers) ..... As directed Orders: S TR - Adenosine ([id number]) C omplete Echo ([id number]) Monty Gaona MD Date Name Complete Echo STR - Adenosine
[2024-10-30 09:55] VITALS: BP 137/80; PULSE 75; RESP 16; O2SAT 97
== END 2024-10-30 09:55 | disposition home or self-care (01) ==
PROVIDERS: Emergency Provider Emergency Medicine
DX: R07.89 Other chest pain (principal); M25.512 Pain in left shoulder; I10 Essential (primary) hypertension; E11.9 Type 2 diabetes mellitus without complications; I25.10 Atherosclerotic heart disease of native coronary artery without angina pectoris; Z87.891 Personal history of nicotine dependence; W01.0XXA Fall on same level from slipping, tripping and stumbling without subsequent striking against object, initial encounter
CPT/HCPCS: 71046; 71100; 73030; 99284; A9270